=== PATIENT | female | born 1935 | race Caucasian/White ===

== ENCOUNTER 2018-10-26 17:27 | Inpatient (IN) ==
[2018-10-26] MEDS ORDERED: ONDANSETRON 4 MG/2 ML VIAL IV ONE (18:04)
--- NOTE | 2018-10-26 18:08 | Emergency Department Note ---
General Adult HPI - General Chief complaint: Weakness Stated complaint: N/v, weakness, congested Time Seen by Provider: 10/26/18 17:38 Source: patient, family Mode of arrival: wheelchair Limitations: no limitations - History of Present Illness HPI Narrative: 83-year-old female in ED with symptoms that started 1 week ago. Cough, general unwell feeling, temp of 100 on day 1 of illness, vomiting daily related to drinking water or eating small amounts such as piece of toast, 3-4 episodes of diarrhea, sinus congestion which is chronic, generalized weakness, decreased appetite. No headache, no chest pain, no change in bladder. Patient does have abdominal pain but it's more of a discomfort. Patient states she thinks she is probably lost 2 pounds this week. Patient does have history of stomach carcinoma with this screen placed when she had the surgery in her upper abdomen. Patient also states she has one kidney that only works about 25%. Onset (ago): week(s) (1) Severity: mild Severity scale (1-10): 4 Quality: aching, dull Consistency: constant Worsens with: movement Associated symptoms: Reports: cough, fever/chills, loss of appetite, malaise, nausea/vomiting, weakness (generalized). Denies: confusion, chest pain, diaphoresis, headaches, shortness of breath Treatments Prior to Arrival: none - Related Data Home Medications Medication Instructions Recorded Confirmed multivitamin tablet 1 tab PO QDAY tab 02/03/15 05/17/18 clopidogrel 75 mg tablet 75 mg PO QDAY 07/20/17 10/26/18 glucosamine HCl 1,500 mg tablet 1,500 mg PO QDAY 07/20/17 05/17/18 Vitamin D3 1,000 units PO QDAY 11/16/17 05/17/18 flaxseed oil 1,000 mg capsule 1,000 mg PO QDAY 11/16/17 05/17/18 warfarin 5 mg tablet See Rx Instructions PO QDAY 11/16/17 10/26/18 diltiazem CD 240 mg 240 mg PO QDAY 05/17/18 10/26/18 capsule,extended release 24 hr Previous Rx's Medication Instructions Recorded rosuvastatin 5 mg tablet 5 mg PO QDAY #60 tab 12/29/17 olmesartan 40 1 tab PO QDAY #60 tab 08/16/18 mg-hydrochlorothiazide 25 mg tablet Allergies Allergy/AdvReac Type Severity Reaction Status Date / Time ciprofloxacin [From Cipro] Allergy Unknown Other Verified 10/26/18 17:28 Cisapride [From Propulsid] Allergy Unknown Diarrhea Verified 10/26/18 17:28 ezetimibe [From Zetia] Allergy Unknown Diarrhea Verified 10/26/18 17:28 loratadine [From Claritin] Allergy Unknown Other Verified 10/26/18 17:28 MRI (stent) AdvReac Severe Other Uncoded 05/17/18 12:55 Review of Systems All systems ED: reviewed and negative except as stated. Past Medical History - Past Medical History [facility] Narrative: All Active Problems (Last Updated 05/17/18 @ 07:07 by Portia Black MD) CKD (chronic kidney disease) stage 3, GFR 30-59 ml/min (Chronic) Benign hypertension with CKD (chronic kidney disease) stage III (Chronic) Secondary hyperparathyroidism of renal origin (Chronic) History of stent insertion of renal artery (Chronic) Splenic mass (Chronic) Carotid stenosis (Acute) KARLA (renal artery stenosis) (Acute) Hypovitaminosis D (Chronic) Biceps muscle tear (Acute) Postgastric surgery syndrome (Chronic) Microscopic hematuria (Acute) Encounter for Health Maintenance Examination in Adult (Chronic) History of pelvic surgery (Acute) History of hysterectomy (Acute) History of esophagogastroduodenoscopy (Acute 12/18/08) History of colonoscopy (Acute 12/16/13) History of arthroplasty (Acute) Weight loss (Acute) UTI (urinary tract infection) (Acute) Urinary incontinence (Acute) Small bowel obstruction (Acute) Primary small intestine carcinoid tumor (Chronic) Raynauds syndrome (Acute) Positive RYLAND (antinuclear antibody) (Acute) Polymyalgia rheumatica (Acute) Osteoporosis screening (Acute) Nasal discharge (Acute) Mitral valve regurgitation (Chronic) Migraine with visual aura (Acute) Midepigastric pain (Acute) Meckel's diverticulum (Acute) Leg injury (Acute) Hypertension (Chronic) Hyperlipidemia (Chronic) Fibrocystic disease of breast (Acute) Fatigue (Acute) Esophagitis (Chronic) Struck by horse (Acute) Dysphagia (Acute) Degenerative arthritis (Chronic) Colon polyps (Acute 11/27/08) Back pain (Chronic) Atrial fibrillation (Chronic) Anticoagulant long-term use (Chronic 10/30/13) Past Surgical History History of pelvic surgery (Acute) History of esophagogastroduodenoscopy (Acute 12/18/08) History of colonoscopy (Acute 12/16/13) History of arthroplasty (Acute) Family History Sister Malignant neoplasm of breast Father Malignant neoplasm of colon Medical history: Reports: arthritis, atrial fibrillation, cancer, hyperlipidemia, hypertension, renal disease, valvular heart disease Psychiatric history: Reports: no psych history - Social History smoking status: Former smoker Physical Exam Limitations: no limitations General appearance: alert, in no apparent distress, malaise Head: atraumatic, normocephalic, normal inspection Eye: Present: normal appearance, PERRL. Absent: conjunctival injection ENT: mucous membranes moist, TM's normal bilaterally, normal external ear exam, nasal congestion External ear: Present: normal external inspection Nasal speculum exam: Bilateral: normal Mouth: Present: tongue normal. Absent: tongue elevation, tounge swelling Throat: Present: tonsillar erythema. Absent: tonsillomegaly, tonsillar exudate Neck: Present: normal inspection. Absent: tenderness, lymphadenopathy Chest: Present: normal inspection, symmetric chest wall rise. Absent: tenderness Respiratory: Present: normal lung sounds bilaterally. Absent: respiratory distress, rales/crackles, wheezes, stridor Cardiovascular: Present: irregular rhythm, systolic murmur, diastolic murmur Abdominal: Present: soft, tenderness, hypoactive bowel sounds. Absent: distention, guarding, rebound, rigidity Abdominal tenderness: Present: suprapubic Extremities: Present: normal inspection. Absent: pedal edema Back: Present: normal inspection. Absent: tenderness, CVA tenderness (R), CVA tenderness (L) Neurological: Present: alert, oriented X3, normal gait Psychiatric: Present: normal affect, normal mood. Absent: depressed, agitated, anxious, flat affect Skin: Present: warm, dry, intact, normal color. Absent: cool, diaphoretic Course Vital Signs Temperature 97.7 F 10/26/18 17:28 Pulse Rate 62 10/26/18 17:28 Respiratory Rate 16 10/26/18 17:28 Blood Pressure 165/63 10/26/18 17:28 Pulse Oximetry (%) 96 10/26/18 17:28 Temperature 97.7 F 10/26/18 17:28 Pulse Rate 58 L 10/26/18 20:01 Respiratory Rate 18 10/26/18 20:01 Blood Pressure 148/59 10/26/18 20:01 Pulse Oximetry (%) 93 10/26/18 20:01 Medical Decision Making - [facility] Narrative Medical decision making narrative: Patient originally started on lactated Ringer's 500 mL/h this was slowed to 125 mL an hour. Patient also receive 4 mg Zofran IV. Patient studies CBC 4.2, sodium 109, potassium 4.1, chloride 7.2, BUN 26, creatinine 1.1. Abdominal x-ray with nonspecific/nonobstructive bowel gas pattern and severe multi-level generative disc disease. Chest x-ray with cardiomegaly, no pulmonary edema, severe rotator cuff degeneration and bilateral shoulders along with nonacute healed left rib fractures. Urine negative for leukocytes. Discussed pt with who advised he would accept patient. - Lab Data Lab results reviewed: Yes I reviewed the patient's lab results. Result diagrams: 10/26/18 18:10 10/26/18 18:10 Lab Results 10/26/18 10/26/18 10/26/18 Range/Units 18:10 18:10 18:15 WBC 4.2 L (4.5-11.0) K/mcL RBC 4.76 (4.00-5.20) M/mcL Hgb 14.3 (12.0-15.0) g/dL Hct 43.0 (36.0-48.0) % POC Hct 46.0 (36.0-48.0) % MCV 90.5 (80.0-100.0) fL MCH 30.0 (26.0-34.0) pg MCHC 33.2 (31.0-36.0) g/dL RDW 12.9 (11.5-14.5) % Plt Count 146 (140-440) K/mcL MPV 9.2 (7.4-10.4) fL Gran % 63.6 (38.0-78.0) % Lymph % (Auto) 27.8 (15.5-49.0) % [place] % (Auto) 8.0 (1.0-12.0) % Eos % (Auto) 0.3 (0.0-7.0) % Baso % (Auto) 0.3 (0.0-2.0) % Gran # 2.7 (1.8-8.0) K/mcL Lymph # (Auto) 1.2 L (1.5-4.8) K/mcL [place] # (Auto) 0.3 (0.1-0.9) K/mcL Eos # (Auto) 0 (0.0-0.7) K/mcL Baso # (Auto) 0 (0.0-0.3) K/mcL PT 19.9 H (11.9-14.5) sec INR 1.7 H (0.9-1.1) APTT 44 H (20-37) sec POC Sodium 111 L* (133-145) mmol/L Sodium 109 L* (133-145) mmol/L POC Potassium 4.0 (3.3-5.1) mmol/L Potassium 4.1 (3.3-5.1) mmol/L POC Chloride 74 L (96-108) mmol/L Chloride 72 L (96-108) mmol/L Carbon Dioxide 25 (22-30) mmol/L POC Total CO2 26 (22-30) mmol/L Anion Gap 12.0 (8-16) POC BUN 26 H (8-23) mg/dl BUN 24 H (8-23) mg/dl Creatinine 1.1 (0.6-1.1) mg/dl POC Creatinine 1.3 H (0.6-1.1) mg/dl GFR Calculation 46 Glucose 105 (70-105) mg/dL POC Glucose 107 H (70-105) mg/dL Osmolality (280-300) mOSM/kg Uric Acid (2.5-8.0) mg/dL Calcium 9.4 (8.6-10.4) mg/dl POC WB Ioniz Calcium 1.10 L (1.16-1.32) mmol/L Total Bilirubin 0.5 (0.0-1.0) mg/dL AST 32 (0-37) U/l ALT 15 (0-40) U/l Alkaline Phosphatase 80 (39-117) U/L Total Protein 8.1 (5.9-8.4) gm/dL Albumin 4.5 (3.2-5.2) gm/dL Globulin 3.6 (2.2-3.7) gm/dL Albumin/Globulin Ratio 1.3 (1.0-2.3) Urine Osmolality (80-1000) mOsm/kg Ur Random Creatinine mg/dl Ur Random Sodium mmol/L Urine Urea Nitrogen mg/dL 10/26/18 10/26/18 10/26/18 Range/Units 19:49 19:49 19:50 WBC (4.5-11.0) K/mcL RBC (4.00-5.20) M/mcL Hgb (12.0-15.0) g/dL Hct (36.0-48.0) % POC Hct (36.0-48.0) % MCV (80.0-100.0) fL MCH (26.0-34.0) pg MCHC (31.0-36.0) g/dL RDW (11.5-14.5) % Plt Count (140-440) K/mcL MPV (7.4-10.4) fL Gran % (38.0-78.0) % Lymph % (Auto) (15.5-49.0) % [place] % (Auto) (1.0-12.0) % Eos % (Auto) (0.0-7.0) % Baso % (Auto) (0.0-2.0) % Gran # (1.8-8.0) K/mcL Lymph # (Auto) (1.5-4.8) K/mcL [place] # (Auto) (0.1-0.9) K/mcL Eos # (Auto) (0.0-0.7) K/mcL Baso # (Auto) (0.0-0.3) K/mcL PT (11.9-14.5) sec INR (0.9-1.1) APTT (20-37) sec POC Sodium (133-145) mmol/L Sodium (133-145) mmol/L POC Potassium (3.3-5.1) mmol/L Potassium (3.3-5.1) mmol/L POC Chloride (96-108) mmol/L Chloride (96-108) mmol/L Carbon Dioxide (22-30) mmol/L POC Total CO2 (22-30) mmol/L Anion Gap (8-16) POC BUN (8-23) mg/dl BUN (8-23) mg/dl Creatinine (0.6-1.1) mg/dl POC Creatinine (0.6-1.1) mg/dl GFR Calculation Glucose (70-105) mg/dL POC Glucose (70-105) mg/dL Osmolality 247 L (280-300) mOSM/kg Uric Acid 5.7 (2.5-8.0) mg/dL Calcium (8.6-10.4) mg/dl POC WB Ioniz Calcium (1.16-1.32) mmol/L Total Bilirubin (0.0-1.0) mg/dL AST (0-37) U/l ALT (0-40) U/l Alkaline Phosphatase (39-117) U/L Total Protein (5.9-8.4) gm/dL Albumin (3.2-5.2) gm/dL Globulin (2.2-3.7) gm/dL Albumin/Globulin Ratio (1.0-2.3) Urine Osmolality 417 (80-1000) mOsm/kg Ur Random Creatinine 68.9 mg/dl Ur Random Sodium 52 mmol/L Urine Urea Nitrogen 481 mg/dL - Radiology Data Radiology results reviewed: Yes I reviewed the patient's radiology results. Chest x-ray: IMPRESSION: 1. Cardiomegaly. No pulmonary edema or pulmonary congestion 2. Nonacute healed left rib fractures. Severe rotator cuff degeneration and degenerative disease in both shoulders Abdominal x-ray: IMPRESSION: 1. Nonspecific and nonobstructive bowel gas pattern 2. Severe multilevel degenerative disc disease Disposition Pt seen by DIRECTOR OF ARCHITECTURE/PA only: No (Chavez) Clinical Impression: Acute hyponatremia Disposition: Xfer As Inpt ([facility]) Condition: Fair Referrals: Abebe Cruz MD [Primary Care Provider] - Time of Disposition: 21:19
[2018-10-26] MEDS: LACTATED RINGERS 1,000 ML IV SCH (18:35)
--- NOTE | 2018-10-26 18:55 | XRay Report ---
CLINICAL INFORMATION: Nausea and vomiting TECHNIQUE: Supine and upright abdomen COMPARISON: CT of the abdomen and pelvis dated 05/05/2016 performed at [facility] FINDINGS: There is gas and fecal material within the colon. No dilated gas-filled small bowel. No evidence for mechanical small bowel obstruction. There is no pneumoperitoneum. No biliary or portal venous gas. No pneumatosis. There is a probable vascular stent left upper abdomen. This may be renal artery. There is severe multilevel degenerative disc disease throughout the lumbar spine. IMPRESSION: 1. Nonspecific and nonobstructive bowel gas pattern 2. Severe multilevel degenerative disc disease Interpreted and Authenticated by: Jarrod Martin 10/26/18
--- NOTE | 2018-10-26 18:57 | XRay Report ---
INDICATION: Weakness TECHNIQUE: PA and lateral upright chest x-ray COMPARISON: Previous chest x-ray dated 05/26/2017 FINDINGS:No acute or focal pulmonary parenchymal infiltrate. No pulmonary parenchymal mass. No pulmonary parenchymal abnormality. Is cardiomegaly. Pulmonary vascularity is normal. No pulmonary edema or pulmonary congestion. No evidence for pleural fluid. There are nonacute left-sided fractures. These are unchanged. There is rotator cuff degeneration both shoulders, right worse than left. No acute abnormality or interval change IMPRESSION: 1. Cardiomegaly. No pulmonary edema or pulmonary congestion 2. Nonacute healed left rib fractures. Severe rotator cuff degeneration and degenerative disease in both shoulders Interpreted and Authenticated by: Jarrod Martin 10/26/18
[2018-10-26 19:02] LABS: ALT/SGPT 15 U/l (0-40); Albumin 4.5 gm/dL (3.2-5.2); Albumin/Globulin Ratio 1.3 (1.0-2.3); Alkaline Phosphatase 80 U/L (39-117); Blood Urea Nitrogen 24 mg/dl (8-23)
[2018-10-26 19:03] LABS: Basophils # (Auto) 0 K/mcL (0.0-0.3); Basophils % (Auto) 0.3 % (0.0-2.0); Eosinophils # (Auto) 0 K/mcL (0.0-0.7); Eosinophils % (Auto) 0.3 % (0.0-7.0); Granulocytes % (Auto) 63.6 % (38.0-78.0); Lymphocytes # (Auto) 1.2 K/mcL (1.5-4.8); Lymphocytes % (Auto) 27.8 % (15.5-49.0); Mean Cell Volume 90.5 fL (80.0-100.0); Mean Corpuscular HGB Conc 33.2 g/dL (31.0-36.0); Monocytes # (Auto) 0.3 K/mcL (0.1-0.9); Platelet Count 146 K/mcL (140-440); RBC 4.76 M/mcL (4.00-5.20); Red Cell Distribution Width 12.9 % (11.5-14.5)
[2018-10-26 20:11] LABS: Uric Acid 5.7 mg/dL (2.5-8.0)
--- NOTE | 2018-10-26 20:21 | Internal Med History&Physical ---
Medical - H&P: [facility] Patient information: Note initiated : 10/26/18 at 8:17 pm Service Date, if different from initiated Date: [] Patient: Lionel Knapp 83 y/o F admitted on for N/v, weakness, congested. Chief Complaint: [] History of present illness: Ms. Knapp is a 83 year old F who presents to the ED with generalized weakness a weeks worth of occasional nausea vomiting and some occasional diarrhea as well as sinus congestion cough. Because of her severe weakness she came to the ED with her daughter. Reports about a week ago she developed cold symptoms feeling malaise and tired she had sinus congestion which is chronic but she had some continued cough with it. She says she was had a fever the first day. She has had occasional nausea vomiting the first 1 was mild when after water this morning. She had a little bit of diarrhea may be a small one once a day past couple days. She feels very weak. She denies any headache no current fevers or chills no chest pain. She feels her urination is the same as what it has been. Color is the same. She drinks 3-4 glasses of water a day. She has some abdominal discomfort describes more of a nausea. She was flu negative in the ED. She is on medication all losartan with hydrochlorothiazide in it. He says about a month ago she ran out over there is an issue with insurance and it was out into the ARB and the HCTZ. She was taking them separately. It was not until yesterday that she was able to get the combined pill form again to start taking. Review of Systems: Pertinent positives as above. Denies headache/fever/chills/chest paindyspnea. Remaining 10 point review of systems reviewed negative Medical - H&P: PMH Medical history: Medical History (Last Updated 05/17/18 @ 07:07 by Portia Black MD) CKD (chronic kidney disease) stage 3, GFR 30-59 ml/min (Chronic) Benign hypertension with CKD (chronic kidney disease) stage III (Chronic) Secondary hyperparathyroidism of renal origin (Chronic) Biceps muscle tear (Acute) Microscopic hematuria (Acute) Encounter for Health Maintenance Examination in Adult (Chronic) History of hysterectomy (Acute) Weight loss (Acute) UTI (urinary tract infection) (Acute) Urinary incontinence (Acute) Small bowel obstruction (Acute) Primary small intestine carcinoid tumor (Chronic) Raynauds syndrome (Acute) Positive RYLAND (antinuclear antibody) (Acute) Polymyalgia rheumatica (Acute) Osteoporosis screening (Acute) Nasal discharge (Acute) Mitral valve regurgitation (Chronic) Migraine with visual aura (Acute) Midepigastric pain (Acute) Meckel's diverticulum (Acute) Leg injury (Acute) Hypertension (Chronic) Hyperlipidemia (Chronic) Fibrocystic disease of breast (Acute) Fatigue (Acute) Esophagitis (Chronic) Struck by horse (Acute) Dysphagia (Acute) Degenerative arthritis (Chronic) Colon polyps (Acute 11/27/08) Back pain (Chronic) Atrial fibrillation (Chronic) Anticoagulant long-term use (Chronic 10/30/13) Past Surgical History History of pelvic surgery (Acute) History of esophagogastroduodenoscopy (Acute 12/18/08) History of colonoscopy (Acute 12/16/13) History of arthroplasty (Acute) Family History Sister Malignant neoplasm of breast Father Malignant neoplasm of colon Social History (Last Updated 05/17/18 @ 13:23 by Portia Black MD) Denies tobacco abuse She drinks alcohol occasionally Does not use a cane or walker Lives by herself Medical - H&P: Meds Home Medications Medication Instructions Recorded Confirmed Type multivitamin tablet 1 tab PO QDAY tab 02/03/15 05/17/18 History clopidogrel 75 mg tablet 75 mg PO QDAY 07/20/17 10/26/18 History glucosamine HCl 1,500 mg tablet 1,500 mg PO QDAY 07/20/17 05/17/18 History Vitamin D3 1,000 units PO QDAY 11/16/17 05/17/18 History flaxseed oil 1,000 mg capsule 1,000 mg PO QDAY 11/16/17 05/17/18 History warfarin 5 mg tablet See Rx Instructions PO QDAY 11/16/17 10/26/18 History rosuvastatin 5 mg tablet 5 mg PO QDAY #60 tab 12/29/17 10/26/18 Rx olmesartan 40 1 tab PO QDAY #60 tab 03/15/18 10/26/18 Rx mg-hydrochlorothiazide 25 mg tablet diltiazem CD 240 mg 240 mg PO QDAY 05/17/18 10/26/18 History capsule,extended release 24 hr Allergies Allergy/AdvReac Type Severity Reaction Status Date / Time ciprofloxacin [From Cipro] Allergy Unknown Other Verified 10/26/18 17:28 Cisapride [From Propulsid] Allergy Unknown Diarrhea Verified 10/26/18 17:28 ezetimibe [From Zetia] Allergy Unknown Diarrhea Verified 10/26/18 17:28 loratadine [From Claritin] Allergy Unknown Other Verified 10/26/18 17:28 MRI (stent) AdvReac Severe Other Uncoded 05/17/18 12:55 Medical - H&P: Exam - Constitutional Vitals: Temp Pulse Resp BP Pulse Ox 97.7 F 58 L 18 148/59 93 10/26/18 17:28 10/26/18 20:01 10/26/18 20:01 10/26/18 20:01 10/26/18 20:01 Exam: General: Awake, No acute Distress Eyes/N/T: EOMI, PEERL, DMM Head/Neck: neck supple, normocephalic atraumatic CV: Irregular, no murmurs, normal s1/s2 Pulm: No wheezing, mildly coarse with mild rhonchi abd: soft, nontender, +BS x4 Ext: no clubbing/cyanosis/edema Neuro: Awake but appears lethargic, no focal deficits, moves all extremities, CN 2-12 grossly intact, symmetrical strength b/l upper/lower, sensations intact b/l upper/lower Skin: warm/dry, poor skin turgor Medical - H&P: Reslt - Labs CBC & Chem 7: 10/26/18 18:10 10/26/18 18:10 Labs: Short CBC 10/26/18 Range/Units 18:10 WBC 4.2 L (4.5-11.0) K/mcL Hgb 14.3 (12.0-15.0) g/dL Hct 43.0 (36.0-48.0) % Plt Count 146 (140-440) K/mcL BMP 10/26/18 18:10 Sodium 109 L* Potassium 4.1 Chloride 72 L Carbon Dioxide 25 BUN 24 H Creatinine 1.1 Glucose 105 Calcium 9.4 Liver Function 10/26/18 Range/Units 18:10 Total Bilirubin 0.5 (0.0-1.0) mg/dL AST 32 (0-37) U/l ALT 15 (0-40) U/l Alkaline Phosphatase 80 (39-117) U/L Albumin 4.5 (3.2-5.2) gm/dL - Impressions Chest x-ray and abdominal x-ray no acute pathology Medical - H&P: A/P - Narrative A/P Narrative: A: *Hyponatremia, likely chronic: *N/v/ generalized malaise: 2/2 above -Mild diarrhea *Volume depletion: *Chronic atrial fibrillation: On warfarin diltiazem. Follows with Dr. Gray *h/o CEA and KARLA: On Plavix, has followed with Dr. Pack *CKD III: Follows with Dr. Laughlin *HTN: * P: -start with NS IVF's -pending urine studies and TSH, osmol -serial Na -Antiemetics, -Stool studies -Continue home diltiazem/Plavix/statin -Hold ARB for now, d/c HCTZ -- -PT/OT -ppx: Warfarin per pharmacy
[2018-10-26 20:44] LABS: Osmolality,Urine 417 mOsm/kg (80-1000)
[2018-10-26] MEDS ORDERED: diphenhydrAMINE 50 MG/ML VIAL IV PRN ×2 (20:45→21:40)
[2018-10-26] MEDS ORDERED: IPRATROPIUM/ALBUTEROL 3 ML AMPUL.NEB NEB PRN (21:40)
[2018-10-26] MEDS ORDERED: ACETAMINOPHEN 325 MG TABLET PO PRN (21:40)
[2018-10-26] MEDS ORDERED: POTASSIUM CHLORIDE 40 MEQ in DEXTROSE 5% IN WATER 500 ML IV PRN (21:40)
[2018-10-26] MEDS ORDERED: PROMETHAZINE 25 MG TABLET PO PRN (21:40)
[2018-10-26] MEDS ORDERED: POLYETHYLENE GLYCOL 3350 17 GM PACKET PO PRN (21:40)
[2018-10-26] MEDS ORDERED: MAGNESIUM SULFATE 2 GM/50 ML BAG IV PRN (21:40)
[2018-10-26] MEDS ORDERED: POTASSIUM CHLORIDE 20 MEQ TABLET PO PRN ×2 (21:40)
[2018-10-26] MEDS ORDERED: ONDANSETRON 4 MG/2 ML VIAL IV PRN (21:40)
[2018-10-26] MEDS ORDERED: cloNIDine HCL 0.1 MG TABLET PO PRN (21:40)
[2018-10-26] MEDS ORDERED: PROCHLORPERAZINE 10 MG/2 ML VIAL IV PRN (21:40)
[2018-10-26 21:43] LABS: Blood Urea Nitrogen 22 mg/dl (8-23)
[2018-10-26] MEDS ORDERED: SODIUM CHLORIDE 1 GM TABLET PO ONE (21:43)
[2018-10-26 22:33] LABS: Appearance,Urine CLEAR; Bacteria,Urine 0 /hpf (0); Bilirubin,Urine NEG (NEG); Color,Urine YELLOW; Glucose,Urine (UA) NEGATIVE (NEG); Leukocyte Esterase,Urine NEG /uL (NEG); Mucus,Urine FEW /hpf (0); Protein,Urine 30 mg/dL (NEG); Specific Gravity,Urine 1.013 (1.000-1.035); Urine Blood NEG mg/dL (<0.03); Urine RBC < 1 /hpf (0-1); Urine Squamous Epithelial Cell 2 /hpf (0-4); Urine WBC 0 /hpf (0-4); Urobilinogen,Urine NEG (NEG)
[2018-10-26] MEDS: FAMOTIDINE 20 MG TABLET PO SCH (22:34)
[2018-10-26] MEDS: 0.9 % SODIUM CHLORIDE 10 ML SYRINGE IV SCH (22:36)
[2018-10-26] MEDS: 0.9 % SODIUM CHLORIDE 1,000 ML IV SCH (23:06)
[2018-10-26 23:51] LABS: Blood Urea Nitrogen 21 mg/dl (8-23)
[2018-10-27 00:28] LABS: Blood Urea Nitrogen 19 mg/dl (8-23)
[2018-10-27] MEDS ORDERED: SODIUM CHLORIDE 1 GM TABLET PO ONE (00:30)
[2018-10-27 05:35] LABS: Basophils # (Auto) 0 K/mcL (0.0-0.3); Basophils % (Auto) 0.4 % (0.0-2.0); Eosinophils # (Auto) 0 K/mcL (0.0-0.7); Eosinophils % (Auto) 0.9 % (0.0-7.0); Granulocytes % (Auto) 46.4 % (38.0-78.0); Lymphocytes # (Auto) 1.5 K/mcL (1.5-4.8); Lymphocytes % (Auto) 41.8 % (15.5-49.0); Mean Cell Volume 90.4 fL (80.0-100.0); Mean Corpuscular HGB Conc 33.3 g/dL (31.0-36.0); Monocytes # (Auto) 0.4 K/mcL (0.1-0.9); Monocytes % (Auto) 10.5 % (1.0-12.0); Platelet Count 121 K/mcL (140-440); RBC 4.06 M/mcL (4.00-5.20); Red Cell Distribution Width 12.5 % (11.5-14.5)
[2018-10-27] MEDS: 0.9 % SODIUM CHLORIDE 10 ML SYRINGE IV SCH ×3 (06:04→22:01)
[2018-10-27 06:14] LABS: Cortisol,AM 17.1 ug/dl (6.2-19.4)
[2018-10-27 06:23] LABS: ALT/SGPT 13 U/l (0-40); Albumin 3.7 gm/dL (3.2-5.2); Albumin/Globulin Ratio 1.4 (1.0-2.3); Alkaline Phosphatase 64 U/L (39-117); Bilirubin,Direct < 0.2 mg/dL (0.0-0.3); Blood Urea Nitrogen 17 mg/dl (8-23); Gamma Glutamyl Transpeptidase 18 U/L (5-36)
--- NOTE | 2018-10-27 07:31 | Internal Med Progress Note ---
Medical - PN: Subj Patient information: Note initiated : 10/27/18 at 7:24 am Service Date, if different from initiated Date: [] Patient: Lionel Knapp 83 y/o F admitted on 10/26/18 for N/v, weakness, congested. Chief Complaint: [] Interval history: Ms. Knapp is a 83 year old F who presents to the ED with generalized weakness a weeks worth of occasional nausea vomiting and some occasional diarrhea as well as sinus congestion cough. Because of her severe weakness she came to the ED with her daughter. Reports about a week ago she developed cold symptoms feeling malaise and tired she had sinus congestion which is chronic but she had some continued cough with it. She says she was had a fever the first day. She has had occasional nausea vomiting the first 1 was mild when after water this morning. She had a little bit of diarrhea may be a small one once a day past couple days. She feels very weak. She denies any headache no current fevers or chills no chest pain. She feels her urination is the same as what it has been. Color is the same. She drinks 3-4 glasses of water a day. She has some abdominal discomfort describes more of a nausea. She was flu negative in the ED. She is on medication all losartan with hydrochlorothiazide in it. He says about a month ago she ran out over there is an issue with insurance and it was out into the ARB and the HCTZ. She was taking them separately. It was not until yesterday that she was able to get the combined pill form again to start taking. 10/27 No overnight events. Monitoring sodium closely. She had some nausea this morning but no vomiting. She feels a little bit stronger this morning. She has a chronic sinus drainage with associated cough. Review of Systems: denies headache/fever/chills/vomiting/chest or abdominal pain/diarrhea. Otherwise see above. - Constitutional Vitals: Vital Signs Temp Pulse Resp BP Pulse Ox 97.7 F 38 L 14 124/60 94 10/27/18 04:01 10/27/18 07:05 10/27/18 07:05 10/27/18 07:02 10/27/18 07:05 Period Temp Pulse Resp BP Sys/Mcintosh Pulse Ox Last 24 Hr 97.7 F-98.8 F 27-67 12-23 124-171/50-92 92-96 Intake and Output 10/26/18 10/27/18 10/27/18 21:59 05:59 13:59 Intake Total 1000 140 Output Total 200 450 200 Balance 800 -310 -200 Weight 56.699 kg Intake & Output: Intake & Output 10/26/18 10/27/18 10/27/18 21:59 05:59 13:59 Intake Total 1000 140 Output Total 200 450 200 Balance 800 -310 -200 Weight 56.699 kg Intake: IV 1000 140 Sodium Chloride 0.9% 1,000 ml @ 140 100 mls/hr IV .Q10H [facility] Rx#: [id number] Lactated Ringers 1,000 ml @ 500 1000 mls/hr IV .Q2H [facility] Rx#: [id number] Output: Void Amount 200 450 200 Other: Urine Appearance Clear Clear Urine Color Pale Pale Exam: General: Awake, No acute Distress Eyes/N/T: EOMI, Head/Neck: neck supple, CV: Irregular, no murmurs, Pulm: No wheezing, mild right rhonchi that clears with cough abd: soft, nontender, +BS x4 Ext: no clubbing/cyanosis/edema Neuro: Awake but appears lethargic, no focal deficits, moves all extremities, Skin: warm/dry, poor skin turgor Medical - PN: Obj Da - Labs CBC & Chem 7: 10/27/18 03:30 10/27/18 07:39 Labs: Abnormal Lab Results 10/27/18 10/27/18 10/26/18 03:30 03:30 Unknown WBC 3.7 L Plt Count 121 L Gran # 1.7 L Lymph # (Auto) PT INR APTT POC Sodium Sodium 114 L* POC Chloride Chloride 78 L POC BUN BUN POC Creatinine POC Glucose Osmolality POC WB Ioniz Calcium Phosphorus 2.1 L Urine Protein 30 A 10/26/18 10/26/18 10/26/18 23:04 22:08 21:01 WBC Plt Count Gran # Lymph # (Auto) PT INR APTT POC Sodium Sodium 109 L* 110 L* 109 L* POC Chloride Chloride 74 L 75 L 74 L POC BUN BUN POC Creatinine POC Glucose Osmolality POC WB Ioniz Calcium Phosphorus Urine Protein 03/29/19 03/29/19 03/29/19 19:49 18:15 18:10 WBC Plt Count Gran # Lymph # (Auto) PT 19.9 H INR 1.7 H APTT 44 H POC Sodium 111 L* Sodium 109 L* POC Chloride 74 L Chloride 72 L POC BUN 26 H BUN 24 H POC Creatinine 1.3 H POC Glucose 107 H Osmolality 247 L POC WB Ioniz Calcium 1.10 L Phosphorus Urine Protein 10/26/18 18:10 WBC 4.2 L Plt Count Gran # Lymph # (Auto) 1.2 L PT INR APTT POC Sodium Sodium POC Chloride Chloride POC BUN BUN POC Creatinine POC Glucose Osmolality POC WB Ioniz Calcium Phosphorus Urine Protein Meds: Medications Acetaminophen (Tylenol) 650 mg PO Q6HP PRN PRN Reason: PAIN/FEVER > 101 Albuterol/Ipratropium (Duoneb) 3 ml NEB Q4HP PRN PRN Reason: Shortness Of Breath Atorvastatin Calcium (Lipitor) 10 mg PO HS [facility] Clonidine HCl (Catapres) 0.1 mg PO QID PRN PRN Reason: sbp>150 Clopidogrel Bisulfate (Plavix) 75 mg PO QDAY [facility] Diltiazem HCl (Cardizem Cd) 240 mg PO QDAY [facility] Diphenhydramine HCl (Benadryl) 25 mg IV Q4-6HP PRN PRN Reason: Allergic Symptoms or NAUSEA Enoxaparin Sodium (Lovenox) 40 mg SQ DAILY ONE Stop: 10/27/18 20:36 Famotidine (Pepcid) 20 mg PO BID [facility] Last Admin: 10/26/18 22:34 Dose: 20 mg Documented by: Potassium Chloride 40 meq/ (Dextrose) 520 mls @ 130 mls/hr IV ONCE PRN PRN Reason: Potassium < 3 Magnesium Sulfate (Magnesium Sulfate) 2 gm in 50 mls @ 50 mls/hr IV ONCE PRN PRN Reason: Magnesium </= 1.6 Sodium Chloride (Sodium Chloride 0.9%) 1,000 mls @ 100 mls/hr IV .Q10H [facility] Last Infusion: 10/27/18 00:30 Dose: 0 mls/hr Documented by: Ondansetron HCl (Zofran) 4 mg IV Q4HP PRN PRN Reason: Nausea And Vomiting Polyethylene Glycol (Miralax) 17 gm PO DAILYP PRN PRN Reason: Constipation Potassium Chloride (Kdur) 40 meq PO ONCE PRN PRN Reason: Potssium is 3-3.5 Potassium Chloride (Kdur) 40 meq PO ONCE PRN PRN Reason: Potassium < 3 Prochlorperazine (Compazine) 10 mg IV Q6HP PRN PRN Reason: Nausea And Vomiting Promethazine HCl (Phenergan) 0 mg PO Q6HP PRN PRN Reason: Nausea And Vomiting Sodium Chloride (Saline Flush) 10 ml IV Q8 [facility] Last Admin: 10/27/18 06:04 Dose: 10 ml Documented by: Warfarin Sodium (Coumadin) 0 mg PO QDAY [facility] Medical - PN: A/P - Time Spent With Patient Total time spent is greater than 50% in coordination of care (as documented) at patient's floor/unit and/or counseling patient: - Narrative A/P Narrative: A: *Hyponatremia, 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 Follows with Dr. Gray *h/o CEA and KARLA: On Plavix, has followed with Dr. Pack *CKD III: Follows with Dr. Laughlin *HTN: * P: -fluid restrict, prn salt tabs -serial Na -Antiemetics, -Stool studies if diarrhea returns -Continue home diltiazem/Plavix/statin -Hold ARB for now, d/c HCTZ - -PT/OT -ppx: Warfarin per pharmacy DNR
--- NOTE | 2018-10-27 08:09 | Emergency Department Note ---
ED Note Addendum Note Addendum: I reviewed this case of Marjan CABRAL. I agree with her evaluation management documentation. Noted patient was admitted to the hospitalist; I participated and agree with this decision
[2018-10-27 08:38] LABS: Blood Urea Nitrogen 16 mg/dl (8-23)
--- NOTE | 2018-10-27 08:38 | XRay Report ---
INDICATION: Cough TECHNIQUE: AP chest x-ray,portable semiupright COMPARISON: Previous examinations dated 10/26/2018, 05/26/2017 FINDINGS:There is cardiomegaly. This is essentially unchanged. Pulmonary vascularity is unremarkable. No pulmonary edema or pulmonary congestion. No focal pulmonary parenchymal infiltrate or mass. Amelia and mediastinum are negative. No evidence for pleural effusion. There is rotator cuff degeneration bilaterally with superior decentering of both humeral heads IMPRESSION: 1. Cardiomegaly, unchanged 2. No parenchymal infiltrates. No evidence for congestive heart failure Interpreted and Authenticated by: Jarrod Martin 10/27/18
[2018-10-27] MEDS ORDERED: DILTIAZEM 240 MG CAP.XL.24H PO SCH (09:00)
[2018-10-27] MEDS ORDERED: WARFARIN 5 MG TABLET PO SCH (09:00)
[2018-10-27] MEDS ORDERED: CLOPIDOGREL 75 MG TABLET PO SCH (09:00)
[2018-10-27] MEDS ORDERED: DEXTROSE 5% IV SCH ×2 (09:15→10:34)
[2018-10-27] MEDS ORDERED: WATER IV SCH ×2 (09:15→10:34)
[2018-10-27] MEDS: 0.9 % SODIUM CHLORIDE 1,000 ML IV SCH (09:42)
[2018-10-27] MEDS: FAMOTIDINE 20 MG TABLET PO SCH ×2 (09:44→20:11)
[2018-10-27] MEDS ORDERED: PROMETHAZINE 25 MG TABLET PO PRN (10:34)
[2018-10-27] MEDS ORDERED: diphenhydrAMINE 50 MG/ML VIAL IV PRN (10:34)
[2018-10-27] MEDS ORDERED: PROCHLORPERAZINE 10 MG/2 ML VIAL IV PRN (10:34)
[2018-10-27] MEDS ORDERED: POLYETHYLENE GLYCOL 3350 17 GM PACKET PO PRN (10:34)
[2018-10-27] MEDS ORDERED: MAGNESIUM SULFATE 2 GM/50 ML BAG IV PRN (10:34)
[2018-10-27] MEDS ORDERED: POTASSIUM CHLORIDE 40 MEQ in DEXTROSE 5% IN WATER 500 ML IV PRN (10:34)
[2018-10-27] MEDS ORDERED: IPRATROPIUM/ALBUTEROL 3 ML AMPUL.NEB NEB PRN (10:34)
[2018-10-27] MEDS ORDERED: 0.9 % SODIUM CHLORIDE 1,000 ML IV SCH (10:34)
[2018-10-27] MEDS ORDERED: POTASSIUM CHLORIDE 20 MEQ TABLET PO PRN ×2 (10:34)
[2018-10-27] MEDS ORDERED: ONDANSETRON 4 MG/2 ML VIAL IV PRN (10:34)
[2018-10-27] MEDS ORDERED: ACETAMINOPHEN 325 MG TABLET PO PRN (10:34)
[2018-10-27] MEDS: ENOXAPARIN 60 MG/0.6 ML SYRINGE SQ SCH ×2 (11:39→20:11)
[2018-10-27 12:46] LABS: Blood Urea Nitrogen 16 mg/dl (8-23)
[2018-10-27] MEDS ORDERED: WARFARIN 7.5 MG TABLET PO ONE (14:00)
[2018-10-27] MEDS ORDERED: SODIUM CHLORIDE 1 GM TABLET PO SCH (15:00)
[2018-10-27 16:30] LABS: Blood Urea Nitrogen 21 mg/dl (8-23)
--- NOTE | 2018-10-27 17:09 | Event Note ---
Patient sodium level is 111, at 1548, was 109 at admission. Will start the patient on hypertonic saline at 20cc/hr, and ddavp 1mcg q6hrs, will titrate dose of saline and ddavp as per response, recheck lab in 3 hrs
[2018-10-27] MEDS ORDERED: SODIUM CHLORIDE 3 % 500 ML IV SCH ×2 (17:15→22:27)
[2018-10-27] MEDS: OSELTAMIVIR PHOSPHATE 30 MG CAPSULE PO SCH ×2 (18:02→20:12)
[2018-10-27] MEDS: LACTATED RINGERS 1,000 ML IV SCH (19:20)
[2018-10-27] MEDS: ATORVASTATIN 20 MG TABLET PO SCH (20:11)
[2018-10-27] MEDS: DESMOPRESSIN ACETATE 1 MCG in 0.9 % SODIUM CHLORIDE 50 ML IV SCH (20:30)
[2018-10-27] MEDS ORDERED: ENOXAPARIN 40 MG/0.4 ML SYRINGE SQ ONE ×2 (20:35)
[2018-10-27] MEDS ORDERED: ATORVASTATIN 20 MG TABLET PO SCH (21:00)
[2018-10-27 22:12] LABS: Blood Urea Nitrogen 25 mg/dl (8-23)
[2018-10-28] MEDS: DESMOPRESSIN ACETATE 1 MCG in 0.9 % SODIUM CHLORIDE 50 ML IV SCH ×4 (00:10→21:49)
[2018-10-28 02:05] LABS: Blood Urea Nitrogen 22 mg/dl (8-23)
[2018-10-28] MEDS: cloNIDine HCL 0.1 MG TABLET PO PRN ×2 (05:22→15:58)
[2018-10-28] MEDS: 0.9 % SODIUM CHLORIDE 10 ML SYRINGE IV SCH ×3 (05:23→22:09)
[2018-10-28 05:40] LABS: Basophils # (Auto) 0 K/mcL (0.0-0.3); Basophils % (Auto) 0.5 % (0.0-2.0); Eosinophils # (Auto) 0.1 K/mcL (0.0-0.7); Granulocytes % (Auto) 53.2 % (38.0-78.0); Lymphocytes # (Auto) 2.2 K/mcL (1.5-4.8); Lymphocytes % (Auto) 37.6 % (15.5-49.0); Mean Cell Volume 90.9 fL (80.0-100.0); Mean Corpuscular HGB Conc 33.2 g/dL (31.0-36.0); Monocytes # (Auto) 0.4 K/mcL (0.1-0.9); Monocytes % (Auto) 7.7 % (1.0-12.0); Platelet Count 123 K/mcL (140-440); RBC 4.38 M/mcL (4.00-5.20); Red Cell Distribution Width 13.2 % (11.5-14.5)
[2018-10-28 06:09] LABS: ALT/SGPT 13 U/l (0-40); Albumin 3.9 gm/dL (3.2-5.2); Albumin/Globulin Ratio 1.3 (1.0-2.3); Alkaline Phosphatase 68 U/L (39-117); Bilirubin,Direct < 0.2 mg/dL (0.0-0.3); Blood Urea Nitrogen 20 mg/dl (8-23); Gamma Glutamyl Transpeptidase 18 U/L (5-36); Uric Acid 4.5 mg/dL (2.5-8.0)
[2018-10-28] MEDS ORDERED: DILTIAZEM 240 MG CAP.XL.24H PO SCH (09:00)
[2018-10-28] MEDS: FAMOTIDINE 20 MG TABLET PO SCH ×2 (09:53→21:48)
[2018-10-28] MEDS: CLOPIDOGREL 75 MG TABLET PO SCH (09:53)
[2018-10-28] MEDS: OSELTAMIVIR PHOSPHATE 30 MG CAPSULE PO SCH ×2 (09:56→21:47)
[2018-10-28] MEDS: ENOXAPARIN 60 MG/0.6 ML SYRINGE SQ SCH ×2 (09:56→21:47)
--- NOTE | 2018-10-28 10:03 | Internal Med Progress Note ---
Medical - PN: Subj Patient information: Note initiated : 10/28/18 at 10:01 am Service Date, if different from initiated Date: [] Patient: Lionel Knapp a 83 y/o F admitted on 10/26/18 for N/v, weakness, congested. Chief Complaint: [] Interval history: Ms. Knapp is a 83 year old F who presents to the ED with generalized weakness a weeks worth of occasional nausea vomiting and some occasional diarrhea as well as sinus congestion cough. Because of her severe weakness she came to the ED with her daughter. Reports about a week ago she developed cold symptoms feeling malaise and tired she had sinus congestion which is chronic but she had some continued cough with it. She says she was had a fever the first day. She has had occasional nausea vomiting the first 1 was mild when after water this morning. She had a little bit of diarrhea may be a small one once a day past couple days. She feels very weak. She denies any headache no current fevers or chills no chest pain. She feels her urination is the same as what it has been. Color is the same. She drinks 3-4 glasses of water a day. She has some abdominal discomfort describes more of a nausea. She was flu negative in the ED. She is on medication all losartan with hydrochlorothiazide in it. He says about a month ago she ran out over there is an issue with insurance and it was out into the ARB and the HCTZ. She was taking them separately. It was not until yesterday that she was able to get the combined pill form again to start taking. 10/27 No overnight events. Monitoring sodium closely. She had some nausea this morning but no vomiting. She feels a little bit stronger this morning. She has a chronic sinus drainage with associated cough. 10/28 patient seen examined, no acute issues,no more diarrhea, Pt able to tolerate po diet well tested positive for flu, on tamiflu Her sodium this AM is 119, rising appropriately, was started on ddavp and hypertonic saline yesterday. Pertinent ROS: Denies headache, dizziness Denies chest pain, palpitations Denies cough or shortness of breath Denies abdominal pain, nausea or vomiting. - Constitutional Vitals: Vital Signs Temp Pulse Resp BP Pulse Ox 99.7 F H 57 L 16 133/57 94 10/28/18 08:30 10/28/18 04:01 10/28/18 08:30 10/28/18 08:30 10/28/18 08:30 Period Temp Pulse Resp BP Sys/Mcintosh Pulse Ox Last 24 Hr 97.2 F-99.7 F 50-59 12-19 106-179/46-112 93-98 Intake and Output 10/27/18 10/28/18 10/28/18 21:59 05:59 13:59 Intake Total 665 246.75 118 Output Total 300 750 500 Balance 365 -503.25 -382 Weight 125 lb 11.2 oz Intake & Output: Intake & Output 10/27/18 10/28/18 10/28/18 21:59 05:59 13:59 Intake Total 665 246.75 118 Output Total 300 750 500 Balance 365 -503.25 -382 Weight 125 lb 11.2 oz Intake: IV 375 246.75 118 Ddavp 1 Mcg In Sodium Chloride 150.75 0.9% 50 ml @ 200 mls/hr IV Q6 [facility] Rx#:[id number] Sodium Chloride 3% 500 ml @ 20 96 mls/hr IV ONCE [facility] Rx#: [id number] Oral 290 Output: Void Amount 300 750 500 Other: Meal Dinner Percent of Meal Consumed 100% Feeding Ability Independent Urine Appearance Clear Urine Color Bright Yellow Urine Odor Normal # Voids 1 Exam: Constitutional; Afebrile, cooperative, alert, not in distress. Eyes- No icterus, , No periorbital swelling Ears- Ext ear normal, hearing normal to conversation. Neck- Midline trachea, supple Respiratory system: Air Entry equal on both sides, No crackles or wheezing, no rhonchi. CVS- Rate rhythm regular, S1,S2 heard, no gallop, no rub. Abdomen- Soft nontender abdomen, no organomegaly, no tenderness, no guarding or rigidity, [employer]- AOOx3, moving all extremities, no gross focal deficit noted. Medical - PN: Obj Da - Labs CBC & Chem 7: 10/28/18 03:52 10/28/18 03:52 Labs: Abnormal Lab Results 10/28/18 10/28/18 10/28/18 03:52 03:52 03:52 WBC Plt Count 123 L Gran # Lymph # (Auto) PT 21.8 H INR 1.9 H APTT POC Sodium Sodium 119 L* POC Chloride Chloride 84 L POC BUN BUN POC Creatinine Glucose 69 L POC Glucose Osmolality Calcium POC WB Ioniz Calcium Phosphorus 1.9 L Urine Protein 10/28/18 10/27/18 10/27/18 01:20 21:10 15:48 WBC Plt Count Gran # Lymph # (Auto) PT INR APTT POC Sodium Sodium 116 L* 116 L* 111 L* POC Chloride Chloride 84 L 80 L 77 L POC BUN BUN 25 H POC Creatinine Glucose POC Glucose Osmolality Calcium 8.5 L POC WB Ioniz Calcium Phosphorus Urine Protein 10/27/18 10/27/18 10/27/18 11:55 07:46 07:39 WBC Plt Count Gran # Lymph # (Auto) PT 18.6 H INR 1.6 H APTT POC Sodium Sodium 115 L* 116 L* POC Chloride Chloride 76 L 77 L POC BUN BUN POC Creatinine Glucose POC Glucose Osmolality Calcium POC WB Ioniz Calcium Phosphorus Urine Protein 10/27/18 10/27/18 10/26/18 03:30 03:30 Unknown WBC 3.7 L Plt Count 121 L Gran # 1.7 L Lymph # (Auto) PT INR APTT POC Sodium Sodium 114 L* POC Chloride Chloride 78 L POC BUN BUN POC Creatinine Glucose POC Glucose Osmolality Calcium POC WB Ioniz Calcium Phosphorus 2.1 L Urine Protein 30 A 10/26/18 10/26/18 10/26/18 23:04 22:08 21:01 WBC Plt Count Gran # Lymph # (Auto) PT INR APTT POC Sodium Sodium 109 L* 110 L* 109 L* POC Chloride Chloride 74 L 75 L 74 L POC BUN BUN POC Creatinine Glucose POC Glucose Osmolality Calcium POC WB Ioniz Calcium Phosphorus Urine Protein 10/26/18 10/26/18 10/26/18 19:49 18:15 18:10 WBC Plt Count Gran # Lymph # (Auto) PT 19.9 H INR 1.7 H APTT 44 H POC Sodium 111 L* Sodium 109 L* POC Chloride 74 L Chloride 72 L POC BUN 26 H BUN 24 H POC Creatinine 1.3 H Glucose POC Glucose 107 H Osmolality 247 L Calcium POC WB Ioniz Calcium 1.10 L Phosphorus Urine Protein 10/26/18 18:10 WBC 4.2 L Plt Count Gran # Lymph # (Auto) 1.2 L PT INR APTT POC Sodium Sodium POC Chloride Chloride POC BUN BUN POC Creatinine Glucose POC Glucose Osmolality Calcium POC WB Ioniz Calcium Phosphorus Urine Protein Meds: Medications Acetaminophen (Tylenol) 650 mg PO Q6HP PRN PRN Reason: PAIN/FEVER > 101 Albuterol/Ipratropium (Duoneb) 3 ml NEB Q4HP PRN PRN Reason: Shortness Of Breath Atorvastatin Calcium (Lipitor) 10 mg PO HS [facility] Last Admin: 10/27/18 20:11 Dose: 10 mg Documented by: Clonidine HCl (Catapres) 0.1 mg PO QID PRN PRN Reason: sbp>150 Last Admin: 10/28/18 05:22 Dose: 0.1 mg Documented by: Clopidogrel Bisulfate (Plavix) 75 mg PO QDAY [facility] Last Admin: 10/28/18 09:53 Dose: 75 mg Documented by: Diltiazem HCl (Cardizem Cd) 240 mg PO QDAY [facility] Last Admin: 10/28/18 09:56 Dose: Not Given Documented by: Diphenhydramine HCl (Benadryl) 25 mg IV Q4-6HP PRN PRN Reason: Allergic Symptoms or NAUSEA Last Admin: 10/27/18 20:12 Dose: 25 mg Documented by: Enoxaparin Sodium (Lovenox) 50 mg SQ BID [facility] Last Admin: 10/28/18 09:56 Dose: 50 mg Documented by: Famotidine (Pepcid) 20 mg PO BID [facility] Last Admin: 10/28/18 09:53 Dose: 20 mg Documented by: Potassium Chloride 40 meq/ (Dextrose) 520 mls @ 130 mls/hr IV ONCE PRN PRN Reason: Potassium < 3 Magnesium Sulfate (Magnesium Sulfate) 2 gm in 50 mls @ 50 mls/hr IV ONCE PRN PRN Reason: Magnesium </= 1.6 Sodium Chloride (Sodium Chloride 3%) 500 mls @ 15 mls/hr IV ONCE [facility] Stop: 10/28/18 17:14 Last Admin: 10/27/18 22:39 Dose: Not Given Documented by: Desmopressin Acetate 1 mcg/ (Sodium Chloride) 50.25 mls @ 200 mls/hr IV Q8 [facility] Ondansetron HCl (Zofran) 4 mg IV Q4HP PRN PRN Reason: Nausea And Vomiting Oseltamivir Phosphate (Oseltamivir Phosphate) 30 mg PO BID [facility] Last Admin: 10/28/18 09:56 Dose: 30 mg Documented by: Polyethylene Glycol (Miralax) 17 gm PO DAILYP PRN PRN Reason: Constipation Potassium Chloride (Kdur) 40 meq PO ONCE PRN PRN Reason: Potssium is 3-3.5 Potassium Chloride (Kdur) 40 meq PO ONCE PRN PRN Reason: Potassium < 3 Prochlorperazine (Compazine) 10 mg IV Q6HP PRN PRN Reason: Nausea And Vomiting Promethazine HCl (Phenergan) 0 mg PO Q6HP PRN PRN Reason: Nausea And Vomiting Sodium Chloride (Saline Flush) 10 ml IV Q8 [facility] Last Admin: 10/28/18 05:23 Dose: 10 ml Documented by: Warfarin Sodium (Coumadin Per Pharmacy) 1 order PO UD [facility] Medical - PN: A/P - Time Spent With Patient Total time spent is greater than 50% in coordination of care (as documented) at patient's floor/unit and/or counseling patient: - Narrative A/P Narrative: A: *Hyponatremia, 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 Follows with Dr. Gray *h/o CEA and KARLA: On Plavix, has followed with Dr. Pack *CKD III: Follows with Dr. Laughlin *HTN: *Influenza type A, P: -fluid restrict, hypertonic saline and ddavp, -serial Na for now, -Antiemetics, as needed, pt is tolerating po diet quite well -started on tamiflu for what its worth at this time. -Stool studies if diarrhea returns -Continue home diltiazem/Plavix/statin, hold diltazem today, pt was bradycardic overnight, monitor. -Hold ARB for now, d/c HCTZ - -PT/OT -ppx: Warfarin per pharmacy
[2018-10-28 10:56] LABS: Blood Urea Nitrogen 20 mg/dl (8-23)
[2018-10-28] MEDS ORDERED: WARFARIN 5 MG TABLET PO ONE (15:30)
[2018-10-28 16:57] LABS: Blood Urea Nitrogen 22 mg/dl (8-23)
[2018-10-28] MEDS ORDERED: SODIUM CHLORIDE 3 % 500 ML IV SCH ×2 (16:58→21:45)
[2018-10-28 21:09] LABS: Blood Urea Nitrogen 26 mg/dl (8-23)
[2018-10-28] MEDS: ATORVASTATIN 20 MG TABLET PO SCH (21:46)
[2018-10-29] MEDS: DESMOPRESSIN ACETATE 1 MCG in 0.9 % SODIUM CHLORIDE 50 ML IV SCH (05:44)
[2018-10-29] MEDS: 0.9 % SODIUM CHLORIDE 10 ML SYRINGE IV SCH ×3 (05:44→22:01)
[2018-10-29 06:06] LABS: Basophils # (Auto) 0 K/mcL (0.0-0.3); Basophils % (Auto) 0.5 % (0.0-2.0); Eosinophils # (Auto) 0.1 K/mcL (0.0-0.7); Eosinophils % (Auto) 1.6 % (0.0-7.0); Granulocytes % (Auto) 57.5 % (38.0-78.0); Lymphocytes # (Auto) 1.9 K/mcL (1.5-4.8); Lymphocytes % (Auto) 31.7 % (15.5-49.0); Mean Cell Volume 91.7 fL (80.0-100.0); Mean Corpuscular HGB Conc 32.6 g/dL (31.0-36.0); Monocytes # (Auto) 0.5 K/mcL (0.1-0.9); Monocytes % (Auto) 8.7 % (1.0-12.0); Platelet Count 120 K/mcL (140-440); RBC 4.15 M/mcL (4.00-5.20); Red Cell Distribution Width 13.1 % (11.5-14.5)
[2018-10-29 06:12] LABS: ALT/SGPT 13 U/l (0-40); Albumin 3.5 gm/dL (3.2-5.2); Albumin/Globulin Ratio 1.3 (1.0-2.3); Alkaline Phosphatase 68 U/L (39-117); Bilirubin,Direct < 0.2 mg/dL (0.0-0.3); Blood Urea Nitrogen 20 mg/dl (8-23); Gamma Glutamyl Transpeptidase 18 U/L (5-36); Uric Acid 4.2 mg/dL (2.5-8.0)
[2018-10-29] MEDS ORDERED: MAGNESIUM SULFATE 2 GM/50 ML BAG IV ONE (06:26)
[2018-10-29] MEDS ORDERED: DILTIAZEM 240 MG CAP.XL.24H PO SCH (09:00)
[2018-10-29] MEDS: FAMOTIDINE 20 MG TABLET PO SCH ×2 (09:14→20:26)
[2018-10-29] MEDS: OSELTAMIVIR PHOSPHATE 30 MG CAPSULE PO SCH ×2 (09:14→20:26)
[2018-10-29] MEDS: CLOPIDOGREL 75 MG TABLET PO SCH (09:15)
[2018-10-29] MEDS ORDERED: DILTIAZEM 180 MG CAP.XL.24H PO SCH (09:30)
[2018-10-29] MEDS ORDERED: hydrALAZINE 20 MG/ML VIAL IV PRN ×2 (09:46→10:31)
[2018-10-29 10:13] LABS: Blood Urea Nitrogen 16 mg/dl (8-23)
--- NOTE | 2018-10-29 10:13 | Internal Med Progress Note ---
Medical - PN: Subj Patient information: Note initiated : 10/29/18 at 10:10 am Service Date, if different from initiated Date: [] Patient: Lionel Knapp a 83 y/o F admitted on 10/26/18 for N/v, weakness, congested. Chief Complaint: [] Interval history: Ms. Knapp is a 83 year old F who presents to the ED with generalized weakness a weeks worth of occasional nausea vomiting and some occasional diarrhea as well as sinus congestion cough. Because of her severe weakness she came to the ED with her daughter. Reports about a week ago she developed cold symptoms feeling malaise and tired she had sinus congestion which is chronic but she had some continued cough with it. She says she was had a fever the first day. She has had occasional nausea vomiting the first 1 was mild when after water this morning. She had a little bit of diarrhea may be a small one once a day past couple days. She feels very weak. She denies any headache no current fevers or chills no chest pain. She feels her urination is the same as what it has been. Color is the same. She drinks 3-4 glasses of water a day. She has some abdominal discomfort describes more of a nausea. She was flu negative in the ED. She is on medication all losartan with hydrochlorothiazide in it. He says about a month ago she ran out over there is an issue with insurance and it was out into the ARB and the HCTZ. She was taking them separately. It was not until yesterday that she was able to get the combined pill form again to start taking. 10/27 No overnight events. Monitoring sodium closely. She had some nausea this morning but no vomiting. She feels a little bit stronger this morning. She has a chronic sinus drainage with associated cough. 10/28 patient seen examined, no acute issues,no more diarrhea, Pt able to tolerate po diet well tested positive for flu, on tamiflu Her sodium this AM is 119, rising appropriately, was started on ddavp and hypertonic saline yesterday. 10/29 Patient seen examined, no acute overnight events, doing well, Sodium this AM 121, slow appropriate rise, will cut mahendra on ddavp to q12 hrs, repeat sodium today, if no significant change increase rate to 30ml/hr. anticipate d/c once sodium level is > 130 xfer to med surg status. Pertinent ROS: Denies headache, dizziness Denies chest pain, palpitations Denies cough or shortness of breath Denies abdominal pain, nausea or vomiting. - Constitutional Vitals: Vital Signs Temp Pulse Resp BP Pulse Ox 98.4 F 49 L 14 185/78 97 10/29/18 08:26 10/28/18 08:00 10/29/18 08:26 10/29/18 08:26 10/29/18 08:26 Period Temp Pulse Resp BP Sys/Mcintosh Pulse Ox Last 24 Hr 96.7 F-98.9 F 13-20 127-185/59-78 94-98 Intake and Output 10/28/18 10/29/18 10/29/18 21:59 05:59 13:59 Intake Total 50.25 50.25 Output Total 500 300 700 Balance -449.75 -249.75 -700 Weight 125 lb 4.8 oz Intake & Output: Intake & Output 10/28/18 10/29/18 10/29/18 21:59 05:59 13:59 Intake Total 50.25 50.25 Output Total 500 300 700 Balance -449.75 -249.75 -700 Weight 125 lb 4.8 oz Intake: IV 50.25 50.25 Ddavp 1 Mcg In Sodium Chloride 50.25 50.25 0.9% 50 ml @ 200 mls/hr IV Q8 [facility] Rx#:[id number] Output: Urine Catheter Amount 200 Void Amount 500 300 500 Other: Urine Appearance Clear Clear Clear Urine Color Bright Yellow Bright Yellow Pale Urine Odor Normal # Voids 1 Exam: Constitutional; Afebrile, cooperative, alert, not in distress. Respiratory system: Air Entry equal on both sides, No crackles or wheezing, no rhonchi. CVS- Rate rhythm regular, S1,S2 heard, no gallop, no rub. Abdomen- Soft nontender abdomen, no organomegaly, no tenderness, no guarding or rigidity, [employer]ST- AOOx3, moving all extremities, no gross focal deficit noted. Medical - PN: Obj Da - Labs CBC & Chem 7: 10/29/18 04:14 10/29/18 04:14 Labs: Abnormal Lab Results 10/29/18 10/29/18 10/29/18 04:14 04:14 04:14 WBC Plt Count 120 L Gran # Lymph # (Auto) PT 22.8 H INR 2.0 H APTT POC Sodium Sodium 121 L POC Chloride Chloride 86 L POC BUN BUN POC Creatinine Glucose POC Glucose Osmolality Calcium 8.3 L POC WB Ioniz Calcium Phosphorus 1.8 L Magnesium 1.4 L Urine Protein 10/28/18 10/28/18 10/28/18 20:18 15:56 10:03 WBC Plt Count Gran # Lymph # (Auto) PT INR APTT POC Sodium Sodium 119 L* 118 L* 120 L POC Chloride Chloride 86 L 85 L 86 L POC BUN BUN 26 H POC Creatinine Glucose POC Glucose Osmolality Calcium 8.1 L 8.2 L POC WB Ioniz Calcium Phosphorus Magnesium Urine Protein 10/28/18 10/28/18 10/28/18 03:52 03:52 03:52 WBC Plt Count 123 L Gran # Lymph # (Auto) PT 21.8 H INR 1.9 H APTT POC Sodium Sodium 119 L* POC Chloride Chloride 84 L POC BUN BUN POC Creatinine Glucose 69 L POC Glucose Osmolality Calcium POC WB Ioniz Calcium Phosphorus 1.9 L Magnesium Urine Protein 10/28/18 10/27/18 10/27/18 01:20 21:10 15:48 WBC Plt Count Gran # Lymph # (Auto) PT INR APTT POC Sodium Sodium 116 L* 116 L* 111 L* POC Chloride Chloride 84 L 80 L 77 L POC BUN BUN 25 H POC Creatinine Glucose POC Glucose Osmolality Calcium 8.5 L POC WB Ioniz Calcium Phosphorus Magnesium Urine Protein 10/27/18 10/27/18 10/27/18 11:55 07:46 07:39 WBC Plt Count Gran # Lymph # (Auto) PT 18.6 H INR 1.6 H APTT POC Sodium Sodium 115 L* 116 L* POC Chloride Chloride 76 L 77 L POC BUN BUN POC Creatinine Glucose POC Glucose Osmolality Calcium POC WB Ioniz Calcium Phosphorus Magnesium Urine Protein 10/27/18 10/27/18 10/26/18 03:30 03:30 Unknown WBC 3.7 L Plt Count 121 L Gran # 1.7 L Lymph # (Auto) PT INR APTT POC Sodium Sodium 114 L* POC Chloride Chloride 78 L POC BUN BUN POC Creatinine Glucose POC Glucose Osmolality Calcium POC WB Ioniz Calcium Phosphorus 2.1 L Magnesium Urine Protein 30 A 10/26/18 10/26/18 10/26/18 23:04 22:08 21:01 WBC Plt Count Gran # Lymph # (Auto) PT INR APTT POC Sodium Sodium 109 L* 110 L* 109 L* POC Chloride Chloride 74 L 75 L 74 L POC BUN BUN POC Creatinine Glucose POC Glucose Osmolality Calcium POC WB Ioniz Calcium Phosphorus Magnesium Urine Protein 10/26/18 10/26/18 10/26/18 19:49 18:15 18:10 WBC Plt Count Gran # Lymph # (Auto) PT 19.9 H INR 1.7 H APTT 44 H POC Sodium 111 L* Sodium 109 L* POC Chloride 74 L Chloride 72 L POC BUN 26 H BUN 24 H POC Creatinine 1.3 H Glucose POC Glucose 107 H Osmolality 247 L Calcium POC WB Ioniz Calcium 1.10 L Phosphorus Magnesium Urine Protein 10/26/18 18:10 WBC 4.2 L Plt Count Gran # Lymph # (Auto) 1.2 L PT INR APTT POC Sodium Sodium POC Chloride Chloride POC BUN BUN POC Creatinine Glucose POC Glucose Osmolality Calcium POC WB Ioniz Calcium Phosphorus Magnesium Urine Protein Meds: Medications Acetaminophen (Tylenol) 650 mg PO Q6HP PRN PRN Reason: PAIN/FEVER > 101 Albuterol/Ipratropium (Duoneb) 3 ml NEB Q4HP PRN PRN Reason: Shortness Of Breath Atorvastatin Calcium (Lipitor) 10 mg PO [facility] Last Admin: 10/28/18 21:46 Dose: 10 mg Documented by: Clonidine HCl (Catapres) 0.1 mg PO QID PRN PRN Reason: sbp>150 Last Admin: 10/28/18 15:58 Dose: 0.1 mg Documented by: Clopidogrel Bisulfate (Plavix) 75 mg PO QDAY [facility] Last Admin: 10/29/18 09:15 Dose: 75 mg Documented by: Diltiazem HCl (Cardizem Cd) 180 mg PO DAILY [facility] Last Admin: 10/29/18 09:19 Dose: 180 mg Documented by: Diphenhydramine HCl (Benadryl) 25 mg IV Q4-6HP PRN PRN Reason: Allergic Symptoms or NAUSEA Last Admin: 10/27/18 20:12 Dose: 25 mg Documented by: Famotidine (Pepcid) 20 mg PO BID [facility] Last Admin: 10/29/18 09:14 Dose: 20 mg Documented by: Hydralazine HCl (Apresoline) 10 mg IV Q4-6HP PRN PRN Reason: Hypertension Potassium Chloride 40 meq/ (Dextrose) 520 mls @ 130 mls/hr IV ONCE PRN PRN Reason: Potassium < 3 Magnesium Sulfate (Magnesium Sulfate) 2 gm in 50 mls @ 50 mls/hr IV ONCE PRN PRN Reason: Magnesium </= 1.6 Sodium Chloride (Sodium Chloride 3%) 500 mls @ 25 mls/hr IV ONCE [facility] Stop: 10/29/18 18:00 Last Admin: 10/29/18 01:00 Dose: 25 mls/hr Documented by: Desmopressin Acetate 1 mcg/ (Sodium Chloride) 50.25 mls @ 200 mls/hr IV Q12H [facility] Ondansetron HCl (Zofran) 4 mg IV Q4HP PRN PRN Reason: Nausea And Vomiting Last Admin: 10/29/18 01:34 Dose: 4 mg Documented by: Oseltamivir Phosphate (Oseltamivir Phosphate) 30 mg PO BID [facility] Last Admin: 10/29/18 09:14 Dose: 30 mg Documented by: Polyethylene Glycol (Miralax) 17 gm PO DAILYP PRN PRN Reason: Constipation Potassium Chloride (Kdur) 40 meq PO ONCE PRN PRN Reason: Potssium is 3-3.5 Potassium Chloride (Kdur) 40 meq PO ONCE PRN PRN Reason: Potassium < 3 Prochlorperazine (Compazine) 10 mg IV Q6HP PRN PRN Reason: Nausea And Vomiting Promethazine HCl (Phenergan) 0 mg PO Q6HP PRN PRN Reason: Nausea And Vomiting Sodium Chloride (Saline Flush) 10 ml IV Q8 [facility] Last Admin: 10/29/18 05:44 Dose: 10 ml Documented by: Warfarin Sodium (Coumadin Per Pharmacy) 1 [place] [facility] [facility] [place] - PN: A/P - Time Spent With Patient Total time spent is greater than 50% in coordination of care (as documented) at patient's floor/unit and/or counseling patient: - Narrative A/P Narrative: A: *Hyponatremia, 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 Follows with Dr. Gray *h/o CEA and KARLA: On Plavix, has followed with Dr. Pack *CKD III: Follows with Dr. Laughlin *HTN: *Influenza type A, P: -fluid restrict, hypertonic saline and ddavp, -serial Na for now, sodium risking slowly and appropriately. -Antiemetics, as needed, pt is tolerating po diet quite well -started on tamiflu for what its worth at this time. -Stool studies if diarrhea returns -Continue home diltiazem/Plavix/statin, hold diltazem today, pt was bradycardic overnight, monitor. -Hold ARB for now, d/c HCTZ -HTN cardizem was held yesterday due to low HR, dose cut today from 240 to 180, prn hydralazine for blood pressure > 180 and or 100 - -PT/OT -ppx: Warfarin per pharmacy xfer to med surg status.
[2018-10-29] MEDS ORDERED: SODIUM CHLORIDE 3 % 500 ML IV SCH ×2 (10:16→10:31)
[2018-10-29] MEDS ORDERED: ENOXAPARIN 40 MG/0.4 ML SYRINGE SQ ONE (10:31)
[2018-10-29] MEDS ORDERED: IPRATROPIUM/ALBUTEROL 3 ML AMPUL.NEB NEB PRN (10:31)
[2018-10-29] MEDS ORDERED: POTASSIUM CHLORIDE 40 MEQ in DEXTROSE 5% IN WATER 500 ML IV PRN (10:31)
[2018-10-29] MEDS ORDERED: POLYETHYLENE GLYCOL 3350 17 GM PACKET PO PRN (10:31)
[2018-10-29] MEDS ORDERED: MAGNESIUM SULFATE 2 GM/50 ML BAG IV PRN (10:31)
[2018-10-29] MEDS ORDERED: ACETAMINOPHEN 325 MG TABLET PO PRN (10:31)
[2018-10-29] MEDS ORDERED: cloNIDine HCL 0.1 MG TABLET PO PRN (10:31)
[2018-10-29] MEDS ORDERED: POTASSIUM CHLORIDE 20 MEQ TABLET PO PRN ×2 (10:31)
[2018-10-29] MEDS ORDERED: ONDANSETRON 4 MG/2 ML VIAL IV PRN (10:31)
[2018-10-29] MEDS ORDERED: PROCHLORPERAZINE 10 MG/2 ML VIAL IV PRN (10:31)
[2018-10-29] MEDS ORDERED: PROMETHAZINE 25 MG TABLET PO PRN (10:31)
[2018-10-29] MEDS ORDERED: WARFARIN 5 MG TABLET PO ONE (14:00)
[2018-10-29 15:22] LABS: Blood Urea Nitrogen 20 mg/dl (8-23)
[2018-10-29] MEDS ORDERED: DESMOPRESSIN ACETATE 1 MCG in 0.9 % SODIUM CHLORIDE 50 ML IV SCH ×2 (16:00→18:00)
[2018-10-29] MEDS: diphenhydrAMINE 50 MG/ML VIAL IV PRN (20:25)
[2018-10-29] MEDS: ATORVASTATIN 20 MG TABLET PO SCH (20:26)
[2018-10-29 21:33] LABS: Blood Urea Nitrogen 21 mg/dl (8-23)
[2018-10-29] MEDS: SODIUM CHLORIDE 1 GM TABLET PO SCH (22:00)
[2018-10-30] MEDS: 0.9 % SODIUM CHLORIDE 10 ML SYRINGE IV SCH ×3 (05:41→20:08)
[2018-10-30 06:15] LABS: Basophils # (Auto) 0 K/mcL (0.0-0.3); Basophils % (Auto) 0.5 % (0.0-2.0); Eosinophils # (Auto) 0.1 K/mcL (0.0-0.7); Eosinophils % (Auto) 1.9 % (0.0-7.0); Granulocytes % (Auto) 54.7 % (38.0-78.0); Lymphocytes # (Auto) 1.8 K/mcL (1.5-4.8); Mean Cell Volume 90.5 fL (80.0-100.0); Mean Corpuscular HGB Conc 33.7 g/dL (31.0-36.0); Monocytes # (Auto) 0.5 K/mcL (0.1-0.9); Monocytes % (Auto) 8.9 % (1.0-12.0); Platelet Count 125 K/mcL (140-440); RBC 3.75 M/mcL (4.00-5.20); Red Cell Distribution Width 13.6 % (11.5-14.5)
[2018-10-30] MEDS: ENOXAPARIN 60 MG/0.6 ML SYRINGE SQ SCH (06:37)
[2018-10-30 06:43] LABS: ALT/SGPT 13 U/l (0-40); Albumin 3.3 gm/dL (3.2-5.2); Albumin/Globulin Ratio 1.2 (1.0-2.3); Alkaline Phosphatase 62 U/L (39-117); Bilirubin,Direct < 0.2 mg/dL (0.0-0.3); Blood Urea Nitrogen 16 mg/dl (8-23); Gamma Glutamyl Transpeptidase 17 U/L (5-36); Uric Acid 3.4 mg/dL (2.5-8.0)
[2018-10-30] MEDS: DILTIAZEM 180 MG CAP.XL.24H PO SCH (08:58)
[2018-10-30] MEDS: CLOPIDOGREL 75 MG TABLET PO SCH (08:59)
[2018-10-30] MEDS: SODIUM CHLORIDE 1 GM TABLET PO SCH ×3 (08:59→20:08)
[2018-10-30] MEDS: FAMOTIDINE 20 MG TABLET PO SCH ×2 (09:01→20:07)
[2018-10-30] MEDS: OSELTAMIVIR PHOSPHATE 30 MG CAPSULE PO SCH ×2 (09:01→20:08)
[2018-10-30 11:13] LABS: Blood Urea Nitrogen 15 mg/dl (8-23)
--- NOTE | 2018-10-30 11:55 | Internal Med Progress Note ---
Medical - PN: Subj Patient information: Note initiated : 10/30/18 at 11:52 am Service Date, if different from initiated Date: [] Patient: Lionel Knapp a 83 y/o F admitted on 10/26/18 for N/v, weakness, congested. Chief Complaint: [] Interval history: Ms. Knapp is a 83 year old F who presents to the ED with generalized weakness a weeks worth of occasional nausea vomiting and some occasional diarrhea as well as sinus congestion cough. Because of her severe weakness she came to the ED with her daughter. Reports about a week ago she developed cold symptoms feeling malaise and tired she had sinus congestion which is chronic but she had some continued cough with it. She says she was had a fever the first day. She has had occasional nausea vomiting the first 1 was mild when after water this morning. She had a little bit of diarrhea may be a small one once a day past couple days. She feels very weak. She denies any headache no current fevers or chills no chest pain. She feels her urination is the same as what it has been. Color is the same. She drinks 3-4 glasses of water a day. She has some abdominal discomfort describes more of a nausea. She was flu negative in the ED. She is on medication all losartan with hydrochlorothiazide in it. He says about a month ago she ran out over there is an issue with insurance and it was out into the ARB and the HCTZ. She was taking them separately. It was not until yesterday that she was able to get the combined pill form again to start taking. 10/27 No overnight events. Monitoring sodium closely. She had some nausea this morning but no vomiting. She feels a little bit stronger this morning. She has a chronic sinus drainage with associated cough. 10/28 patient seen examined, no acute issues,no more diarrhea, Pt able to tolerate po diet well tested positive for flu, on tamiflu Her sodium this AM is 119, rising appropriately, was started on ddavp and hypertonic saline yesterday. 10/29 Patient seen examined, no acute overnight events, doing well, Sodium this AM 121, slow appropriate rise, will cut mahendra on ddavp to q12 hrs, repeat sodium today, if no significant change increase rate to 30ml/hr. anticipate d/c once sodium level is > 130 xfer to med surg status. 10/30 Patient seen and examined, no acute overnight concerns. Feels a bit constipated otherwise no acute complaints. Sodium level was 127 this morning, is 125 a little later. She is off hypertonic saline drip since yesterday, just on salt tablets and fluid restriction. Will watch her another day and see how she does Pertinent ROS: Denies headache, dizziness Denies chest pain, palpitations Denies cough or shortness of breath Denies abdominal pain, nausea or vomiting. - Constitutional Vitals: Vital Signs Temp Pulse Resp BP Pulse Ox 96.9 F L 60 14 150/57 96 10/30/18 11:31 10/30/18 11:31 10/30/18 11:31 10/30/18 11:31 10/30/18 04:01 Period Temp Pulse Resp BP Sys/Mcintosh Pulse Ox Last 24 Hr 96.9 F-98.5 F 50-88 14-24 134-163/43-85 95-97 Intake and Output 10/29/18 10/30/18 10/30/18 21:59 05:59 13:59 Intake Total 1340.25 200 Output Total 250 Balance 1090.25 200 Weight 127 lb 8 oz Intake & Output: Intake & Output 10/29/18 10/30/18 10/30/18 21:59 05:59 13:59 Intake Total 1340.25 200 Output Total 250 Balance 1090.25 200 Weight 127 lb 8 oz Intake: IV 550.25 Ddavp 1 Mcg In Sodium Chloride 50.25 0.9% 50 ml @ 200 mls/hr IV Q12H [facility] Rx#:[id number] Oral 790 200 Output: Void Amount 250 Other: Urine Appearance Clear Urine Color Bright Yellow # Voids 1 1 Exam: Constitutional; Afebrile, cooperative, alert, not in distress. Respiratory system: Air Entry equal on both sides, No crackles or wheezing, no rhonchi. CVS- Rate rhythm regular, S1,S2 heard, no gallop, no rub. Abdomen- Soft nontender abdomen, no organomegaly, no tenderness, no guarding or rigidity, BINMAN- AOOx3, moving all extremities, no gross focal deficit noted. Medical - PN: Obj Da - Labs CBC & Chem 7: 10/30/18 04:08 10/30/18 10:10 Labs: Abnormal Lab Results 10/30/18 10/30/18 10/30/18 10:10 04:08 04:08 RBC 3.75 L Hgb 11.4 L Hct 33.9 L Plt Count 125 L PT INR Sodium 125 L 127 L Chloride 91 L 92 L Anion Gap 7.0 L BUN Glucose Calcium 8.4 L Phosphorus 1.7 L Magnesium 10/30/18 10/29/18 10/29/18 04:08 19:58 14:31 RBC Hgb Hct Plt Count PT 23.1 H INR 2.1 H Sodium 125 L 123 L Chloride 90 L 90 L Anion Gap BUN Glucose Calcium 8.3 L Phosphorus Magnesium 10/29/18 10/29/18 10/29/18 09:12 04:14 04:14 RBC Hgb Hct Plt Count 120 L PT INR Sodium 118 L* 121 L Chloride 83 L 86 L Anion Gap BUN Glucose 148 H Calcium 8.5 L 8.3 L Phosphorus 1.8 L Magnesium 1.4 L 10/29/18 10/28/18 10/28/18 04:14 20:18 15:56 RBC Hgb Hct Plt Count PT 22.8 H INR 2.0 H Sodium 119 L* 118 L* Chloride 86 L 85 L Anion Gap BUN 26 H Glucose Calcium 8.1 L 8.2 L Phosphorus Magnesium 10/28/18 10/28/18 10/28/18 10:03 03:52 03:52 RBC Hgb Hct Plt Count 123 L PT INR Sodium 120 L 119 L* Chloride 86 L 84 L Anion Gap BUN Glucose 69 L Calcium Phosphorus 1.9 L Magnesium 10/28/18 10/28/18 10/27/18 03:52 01:20 21:10 RBC Hgb Hct Plt Count PT 21.8 H INR 1.9 H Sodium 116 L* 116 L* Chloride 84 L 80 L Anion Gap BUN 25 H Glucose Calcium 8.5 L Phosphorus Magnesium 10/27/18 10/27/18 15:48 11:55 RBC Hgb Hct Plt Count PT INR Sodium 111 L* 115 L* Chloride 77 L 76 L Anion Gap BUN Glucose Calcium Phosphorus Magnesium Meds: Medications Acetaminophen (Tylenol) 650 mg PO Q6HP PRN PRN Reason: PAIN/FEVER > 101 Albuterol/Ipratropium (Duoneb) 3 ml NEB Q4HP PRN PRN Reason: Shortness Of Breath Atorvastatin Calcium (Lipitor) 10 mg PO HS [facility] Last Admin: 10/29/18 20:26 Dose: 10 mg Documented by: Clonidine HCl (Catapres) 0.1 mg PO QIDP PRN PRN Reason: sbp>150 Clopidogrel Bisulfate (Plavix) 75 mg PO QDAY [facility] Last Admin: 10/30/18 08:59 Dose: 75 mg Documented by: Diltiazem HCl (Cardizem Cd) 180 mg PO DAILY [facility] Last Admin: 10/30/18 08:58 Dose: 180 mg Documented by: Diphenhydramine HCl (Benadryl) 25 mg IV Q4-6HP PRN PRN Reason: Allergic Symptoms or NAUSEA Last Admin: 10/29/18 20:25 Dose: 25 mg Documented by: Famotidine (Pepcid) 20 mg PO BID [facility] Last Admin: 10/30/18 09:01 Dose: 20 mg Documented by: Hydralazine HCl (Apresoline) 10 mg IV Q4-6HP PRN PRN Reason: Hypertension Potassium Chloride 40 meq/ (Dextrose) 520 mls @ 130 mls/hr IV ONCE PRN PRN Reason: Potassium < 3 Magnesium Sulfate (Magnesium Sulfate) 2 gm in 50 mls @ 50 mls/hr IV ONCE PRN PRN Reason: Magnesium </= 1.6 Ondansetron HCl (Zofran) 4 mg IV Q4HP PRN PRN Reason: Nausea And Vomiting Oseltamivir Phosphate (Oseltamivir Phosphate) 30 mg PO BID [facility] Last Admin: 10/30/18 09:01 Dose: 30 mg Documented by: Polyethylene Glycol (Miralax) 17 gm PO DAILYP PRN PRN Reason: Constipation Potassium Chloride (Kdur) 40 meq PO ONCE PRN PRN Reason: Potssium is 3-3.5 Potassium Chloride (Kdur) 40 meq PO ONCE PRN PRN Reason: Potassium < 3 Prochlorperazine (Compazine) 10 mg IV Q6HP PRN PRN Reason: Nausea And Vomiting Promethazine HCl (Phenergan) 0 mg PO Q6HP PRN PRN Reason: Nausea And Vomiting Sodium Chloride (Saline Flush) 10 ml IV Q8 [facility] Last Admin: 10/30/18 05:41 Dose: 10 ml Documented by: Sodium Chloride (Sodium Chloride) 2 gm PO TID [facility] Last Admin: 10/30/18 08:59 Dose: 2 gm Documented by: Warfarin Sodium (Coumadin Per Pharmacy) 1 order PO UD [facility] Warfarin Sodium (Coumadin) 5 mg PO ONCE@1400 ONE Stop: 10/30/18 14:01 Medical - PN: A/P - Time Spent With Patient Total time spent is greater than 50% in coordination of care (as documented) at patient's floor/unit and/or counseling patient: - Narrative A/P Narrative: A: *Hyponatremia, 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 Follows with Dr. Gray *h/o CEA and KARLA: On Plavix, has followed with Dr. Pack *CKD III: Follows with Dr. Laughlin *HTN: *Influenza type A, P: -fluid restrict, off hypertonic saline now, sodium is > 125 - check sodium again tomorrow in AM. -Antiemetics, as needed, pt is tolerating po diet quite well -senna and prn miralax for consipation -started on tamiflu -Stool studies if diarrhea returns -Continue home diltiazem/Plavix/statin, on lower dose of cardizem now, bp is stable. -resume arb, losartan at 25 - -PT/OT -ppx: Warfarin per pharmacy
[2018-10-30] MEDS: LOSARTAN 25 MG TABLET PO SCH (12:44)
[2018-10-30] MEDS ORDERED: WARFARIN 5 MG TABLET PO ONE (14:00)
[2018-10-30] MEDS: ATORVASTATIN 20 MG TABLET PO SCH (20:07)
[2018-10-30] MEDS: diphenhydrAMINE 50 MG/ML VIAL IV PRN (20:07)
[2018-10-30] MEDS ORDERED: SENNOSIDES/DOCUSATE SODIUM 1 TAB TABLET PO SCH (21:00)
[2018-10-30 22:55] LABS: Appearance,Urine HAZY; Bacteria,Urine FEW /hpf (0); Bilirubin,Urine NEG (NEG); Color,Urine YELLOW; Glucose,Urine (UA) NEGATIVE (NEG); Leukocyte Esterase,Urine 250 /uL (NEG); Mucus,Urine FEW /hpf (0); Protein,Urine 30 mg/dL (NEG); Specific Gravity,Urine 1.019 (1.000-1.035); Urine Blood NEG mg/dL (<0.03); Urine RBC 7 /hpf (0-1); Urine Squamous Epithelial Cell 2 /hpf (0-4); Urine WBC 88 /hpf (0-4)
[2018-10-30] MEDS ORDERED: cefTRIAXone 1 GM VIAL ONE (23:19)
[2018-10-30] MEDS: cefTRIAXone 1 GM VIAL IV SCH (23:22)
[2018-10-31] MEDS: 0.9 % SODIUM CHLORIDE 10 ML SYRINGE IV SCH ×2 (05:02→11:45)
[2018-10-31 05:51] LABS: Basophils # (Auto) 0 K/mcL (0.0-0.3); Basophils % (Auto) 0.4 % (0.0-2.0); Eosinophils # (Auto) 0.1 K/mcL (0.0-0.7); Eosinophils % (Auto) 2.3 % (0.0-7.0); Granulocytes % (Auto) 59.7 % (38.0-78.0); Lymphocytes # (Auto) 1.5 K/mcL (1.5-4.8); Lymphocytes % (Auto) 28.5 % (15.5-49.0); Mean Cell Volume 90.9 fL (80.0-100.0); Mean Corpuscular HGB Conc 33.6 g/dL (31.0-36.0); Monocytes # (Auto) 0.5 K/mcL (0.1-0.9); Monocytes % (Auto) 9.1 % (1.0-12.0); Platelet Count 119 K/mcL (140-440); RBC 3.37 M/mcL (4.00-5.20); Red Cell Distribution Width 13.8 % (11.5-14.5)
[2018-10-31 06:02] LABS: ALT/SGPT 26 U/l (0-40); Albumin 3.2 gm/dL (3.2-5.2); Albumin/Globulin Ratio 1.3 (1.0-2.3); Alkaline Phosphatase 63 U/L (39-117); Bilirubin,Direct < 0.2 mg/dL (0.0-0.3); Blood Urea Nitrogen 16 mg/dl (8-23); Gamma Glutamyl Transpeptidase 22 U/L (5-36); Uric Acid 3.3 mg/dL (2.5-8.0)
--- NOTE | 2018-10-31 10:13 | Discharge Summary ---
Medical - DS: Prov Patient information: Note initiated : 10/31/18 at 10:10 am Service Date, if different from initiated Date: [] Patient: Lionel Knapp 83 y/o F admitted on 10/26/18 for N/v, weakness, congested. Chief Complaint: [] Date of admission: 10/26/18 21:36 Discharge date: 10/31/18 Primary care physician: Abebe Cruz MD Consults: 10/26/18 Consult to Physician [CONS] Stat Comment: Consulting Provider: Avi Simmons Reason For Exam: Physician to Consult Discharging clinician: Jay Saavedra Medical - DS: Meds - Discharge Medications Prescriptions: Cefuroxime [Ceftin] 500 mg PO Q12 #4 tab Losartan [Cozaar] 50 mg PO DAILY #30 tab Oseltamivir Phosphate 30 mg PO BID #8 cap Sodium Chloride 1 gm PO TID #90 tab Active and Home Medications: Home Medications multivitamin tablet 1 tab PO QDAY tab 02/03/15 [History Confirmed 10/30/18 Last Taken Unknown] clopidogrel 75 mg tablet 75 mg PO QDAY 07/20/17 [History Confirmed 10/26/18 Last Taken Unknown] glucosamine HCl 1,500 mg tablet 1,500 mg PO QDAY 07/20/17 [History Confirmed 10/30/18 Last Taken Unknown] Vitamin D3 1,000 units PO QDAY 11/16/17 [History Confirmed 10/30/18 Last Taken Unknown] flaxseed oil 1,000 mg capsule 1,000 mg PO QDAY 11/16/17 [History Confirmed 10/30/18 Last Taken Unknown] rosuvastatin 5 mg tablet 5 mg PO QDAY #60 tab 12/29/17 [Rx Confirmed 10/26/18 Last Taken Unknown] olmesartan 40 mg-hydrochlorothiazide 25 mg tablet 1 tab PO QDAY #60 tab 03/15/18 [Rx Confirmed 10/26/18 Last Taken Unknown] diltiazem CD 240 mg capsule,extended release 24 hr 240 mg PO QDAY 05/17/18 [History Confirmed 10/26/18 Last Taken Unknown] Warfarin [Coumadin] 5 mg PO SUTUTHSA 10/27/18 [History Confirmed 10/27/18 Last Taken Unknown] Warfarin [Coumadin] 7.5 mg PO MOWEFR 10/27/18 [History Confirmed 10/27/18 Last Taken Unknown] Medical - DS: Hosp Hospital course: M Ms. Knapp is a 83 year old F who presents to the ED with generalized weakness a weeks worth of occasional nausea vomiting and some occasional diarrhea as well as sinus congestion cough. Because of her severe weakness she came to the ED with her daughter. Reports about a week ago she developed cold symptoms feeling malaise and tired she had sinus congestion which is chronic but she had some continued cough with it. She says she was had a fever the first day. She has had occasional nausea vomiting the first 1 was mild when after water this morning. She had a little bit of diarrhea may be a small one once a day past couple days. She feels very weak. She denies any headache no current fevers or chills no chest pain. She feels her urination is the same as what it has been. Color is the same. She drinks 3-4 glasses of water a day. She has some abdominal discomfort describes more of a nausea. She was flu negative in the ED. She is on medication all losartan with hydrochlorothiazide in it. He says about a month ago she ran out over there is an issue with insurance and it was out into the [facility] and the HCTZ. She was taking them separately. It was not until yesterday that she was able to get the combined pill form again to start taking. 10/27 No overnight events. Monitoring sodium closely. She had some nausea this morning but no vomiting. She feels a little bit stronger this morning. She has a chronic sinus drainage with associated cough. 10/28 patient seen examined, no acute issues,no more diarrhea, Pt able to tolerate po diet well tested positive for flu, on tamiflu Her sodium this AM is 119, rising appropriately, was started on ddavp and hypertonic saline yesterday. 10/29 Patient seen examined, no acute overnight events, doing well, Sodium this AM 121, slow appropriate rise, will cut mahendra on ddavp to q12 hrs, repeat sodium today, if no significant change increase rate to 30ml/hr. anticipate d/c once sodium level is > 130 xfer to med surg status. 10/30 Patient seen and examined, no acute overnight concerns. Feels a bit constipated otherwise no acute complaints. Sodium level was 127 this morning, is 125 a little later. She is off hypertonic saline drip since yesterday, just on salt tablets and fluid restriction. Will watch her another day and see how she does 10/31 Patient seen and examined, no acute overnight events. Sodium is at 129 today. Doing much better stable for discharge. The patient will continue rest of her medications as prescribed by her primary provider In summary of 83-year-old female was admitted to the hospital because of weakness, congestion and some cough, she had been started on olmesartan hydrochlorothiazide recently. On presentation she had a sodium of 109. She also was diagnosed with influenza. During the hospital course she developed signs of cystitis. For hyponatremia she was treated with hypertonic saline and fluid restriction, the patient responded to treatment well. Sodium was corrected appropriately. At the time of discharge sodium level is 129. She will take salt tablets 1 g 3 times a day and recheck her labs in 1 week with her PCP The patient for influenza will take Tamiflu and complete the course of her influenza treatment. For cystitis stable take cefuroxime for 2 more days for total of 3-day course. For hypertension we will stop the combination of olmesartan hydrochlorothiazide and start the patient on just losartan 50 mg once a day. Her PCP can further titrate the dose of this medication or choose an alternative Discharge diagnosis: Hyponatremia, Cystitis, Influenza - Time Spent with Patient Total time spent providing and/or coordinating discharge services: Greater than 30 minutes Medical - DS: Exam - Constitutional Vitals: Vital Signs Temp Pulse Pulse Resp BP Pulse Ox 10/31/18 08:00 97.6 F 55 L 22 157/62 96 10/31/18 03:09 97.9 F 48 L 22 129/52 95 10/30/18 23:34 98.4 F 60 24 H 172/67 97 10/30/18 18:43 98.5 F 60 22 117/56 95 10/30/18 15:41 97.6 F 84 20 160/60 10/30/18 11:31 96.9 F L 60 14 150/57 Intake and Output 10/30/18 10/31/18 10/31/18 21:59 05:59 13:59 Intake Total 480 240 Output Total 60 250 150 Balance 420 -10 -150 Intake: Oral 480 240 Output: Void Amount 60 250 150 Other: Meal Dinner Percent of Meal Consumed 75% Feeding Ability Independent Urine Appearance Clear Clear Clear Urine Color Straw Pale Dark Yellow Urine Odor Normal Normal Stool Size Small Small Stool Color Brown Brown Stool Consistency Formed Formed # Voids 1 1 # Bowel Movements 1 1 Weight 128 lb Additional comments: Constitutional; Afebrile, cooperative, alert, not in distress. Respiratory system: Air Entry equal on both sides, No crackles or wheezing, no rhonchi. CVS- Rate rhythm regular, S1,S2 heard, no gallop, no rub. Abdomen- Soft nontender abdomen, no organomegaly, no tenderness, no guarding or rigidity, [employer]- AOOx3, moving all extremities, no gross focal deficit noted. Medical - DS: Data Labs on day of discharge: Labs from last 24 hours 10/31/18 10/31/18 10/31/18 04:00 04:00 04:00 WBC 5.4 RBC 3.37 L Hgb 10.3 L Hct 30.6 L MCV 90.9 MCH 30.5 MCHC 33.6 RDW 13.8 Plt Count 119 L MPV 9.3 Gran % 59.7 Lymph % (Auto) 28.5 [place] % (Auto) 9.1 Eos % (Auto) 2.3 Baso % (Auto) 0.4 Gran # 3.2 Lymph # (Auto) 1.5 [place] # (Auto) 0.5 Eos # (Auto) 0.1 Baso # (Auto) 0 PT 25.1 H INR 2.3 H Sodium 129 L Potassium 4.6 Chloride 96 Carbon Dioxide 25 Anion Gap 8.0 BUN 16 Creatinine 0.9 GFR Calculation 58 Glucose 83 Uric Acid 3.3 Calcium 8.6 Phosphorus 1.9 L Magnesium 1.7 Total Bilirubin 0.3 Direct Bilirubin < 0.2 GGT 22 AST 39 H ALT 26 Alkaline Phosphatase 63 Lactate Dehydrogenase 192 Total Protein 5.6 L Albumin 3.2 Globulin 2.4 Albumin/Globulin Ratio 1.3 Triglycerides 45 Urine Color Urine Appearance Urine pH Ur Specific [place] Urine Protein Urine Glucose (UA) Urine Ketones Urine Occult Blood Urine Nitrate Urine Bilirubin Urine Urobilinogen Ur Leukocyte Esterase Urine RBC Urine WBC Ur Squamous Epith Cells Urine Bacteria Urine Mucus Ur Culture Indicated? 10/30/18 10/30/18 18:55 10:10 WBC RBC Hgb Hct MCV MCH MCHC RDW Plt Count MPV Gran % Lymph % (Auto) [place] % (Auto) Eos % (Auto) Baso % (Auto) Gran # Lymph # (Auto) [place] # (Auto) Eos # (Auto) Baso # (Auto) PT INR Sodium 125 L Potassium 4.2 Chloride 91 L Carbon Dioxide 27 Anion Gap 7.0 L BUN 15 Creatinine 0.9 GFR Calculation 58 Glucose 86 Uric Acid Calcium 8.7 Phosphorus Magnesium Total Bilirubin Direct Bilirubin GGT AST ALT Alkaline Phosphatase Lactate Dehydrogenase Total Protein Albumin Globulin Albumin/Globulin Ratio Triglycerides Urine Color Yellow Urine Appearance Hazy Urine pH 7.0 Ur Specific [place] 1.019 Urine Protein 30 A Urine Glucose (UA) Negative Urine Ketones Neg Urine Occult Blood Neg Urine Nitrate Neg Urine Bilirubin Neg Urine Urobilinogen 2.0 A Ur Leukocyte Esterase 250 A Urine RBC 7 H Urine WBC 88 H Ur Squamous Epith Cells 2 Urine Bacteria Few A Urine Mucus Few Ur Culture Indicated? Yes Medical - DS: A/P - Patient/Caregiver Discharge Instructions Activity: increase activity as tolerated Diet: Regular Diet Additional Instructions: Take sodium chloride tablet, 1 gm three times a day, follow up and check your labs with PCP in 1 week Follow up with PCP fo your usual coumadin dosing, no changes made to home dose. You have Urinary tract infection and influenza, you are being prescribed tamiflu and cefuroxime, please take these medication till finished. For your blood pressure, do not take olmesartan-hctz. Start on losartan 50mg once daily. Go to the ER if worsening symptoms, chest pain shortness of breath and any other acute concern. - Follow up Plan Follow up with: Abebe Cruz MD [Primary Care Provider] - Disposition: Home Health Service Prognosis: Fair Rehab Potential: Fair I certify that the patient requires SNF services: No Overall status at discharge: patient is progressing back to baseline
[2018-10-31] MEDS: FAMOTIDINE 20 MG TABLET PO SCH (11:16)
[2018-10-31] MEDS: LOSARTAN 25 MG TABLET PO SCH (11:16)
[2018-10-31] MEDS: SODIUM CHLORIDE 1 GM TABLET PO SCH (11:17)
[2018-10-31] MEDS: CLOPIDOGREL 75 MG TABLET PO SCH (11:17)
[2018-10-31] MEDS: OSELTAMIVIR PHOSPHATE 30 MG CAPSULE PO SCH (11:17)
[2018-10-31] MEDS: DILTIAZEM 180 MG CAP.XL.24H PO SCH (11:17)
[2018-10-31] MEDS ORDERED: WARFARIN 5 MG TABLET PO ONE (14:00)
[2018-10-31] MEDS: cefTRIAXone 1 GM VIAL IV SCH (14:31)
== END 2018-10-31 14:50 | disposition home health service (06) | DRG 644 ==
LOC: ED 17:27 → ICU 21:36 → MEDSUR 10-29 17:57
PROVIDERS: ADMIT Internal Medicine; ATTEND Internal Medicine

== ENCOUNTER 2021-06-16 19:28 | Inpatient (IN) ==
[2021-06-16] MEDS ORDERED: 0.9 % SODIUM CHLORIDE 500 ML IV ONE (19:57)
--- NOTE | 2021-06-16 19:58 | Emergency Department Note ---
Abdominal Pain HPI General Chief Complaint: Abdominal Pain Stated Complaint: abdominal pain Time Seen by Provider: 06/16/21 19:39 Source: family Mode of arrival: ambulatory Limitations: no limitations History of Present Illness HPI Narrative: Narrative: Patient presents to the ED for persistent mid abdominal pain and nausea. Flared up in the past 1 to 2 days but ongoing for the past 5 days. Was here Monday for similar albeit milder symptoms. Was found to be a bit dehydrated and hyponatremic was given some IV fluids discharged home. Patient denies any vomiting denies fever chills URI symptoms cardiorespiratory complaints genitourinary symptoms. No focal neurologic symptoms no recent medication changes, no new medications. Does have a history of appendectomy Related Data Home Medications Medication Instructions Recorded Confirmed multivitamin 1 tab PO QDAY tab 02/03/15 06/03/21 glucosamine HCl 1,500 mg tablet 1,500 mg PO QDAY 07/20/17 06/03/21 flaxseed oil 1,000 mg capsule 1,000 mg PO QDAY 11/16/17 06/03/21 apixaban 5 mg tablet (Eliquis) 5 mg PO BID 12/26/18 06/03/21 fexofenadine 180 mg tablet 180 mg PO QDAY 09/04/20 06/03/21 ([facility]) Previous Rx's Medication Instructions Recorded diltiazem HCl 360 mg 360 mg PO QDAY #90 cap 05/26/20 capsule,extended release 24 hr B/L knee high compression garments #1 ea 12/31/20 (15-20 mmHg) lidocaine 5 % topical patch 1 patch TOPICAL QDAY #15 ea 12/31/20 valsartan 160 mg tablet 160 mg PO QDAY #90 tab 01/28/21 torsemide 10 mg tablet 10 mg PO QDAY #90 tab 03/18/21 hydralazine 25 mg tablet 25 mg PO TID #270 tab 03/30/21 rosuvastatin 5 mg tablet 5 mg PO QDAY #90 tab 03/30/21 Allergies Allergy/AdvReac Type Severity Reaction Status Date / Time Cisapride [From Propulsid] Allergy Mild Diarrhea Verified 06/03/21 11:03 ezetimibe [From Zetia] Allergy Mild Diarrhea Verified 06/03/21 11:03 loratadine [From Claritin] Allergy Mild "Funny Verified 06/03/21 11:03 feeling" ciprofloxacin [From Cipro] AdvReac Intermediate Delerium Verified 06/03/21 11:03 MRI (stent) AdvReac Severe Other Uncoded 02/04/21 11:00 Review of Systems ROS ROS Narrative: Narrative: At least 10 systems reviewed and otherwise acutely negative except as in the HPI PFSH Narrative Patient History Narrative: Narrative: Medical/Surgical/Family History All Active Problems (Updated 06/17/21 @ 03:27 by Andrew Keene DO) Generalized weakness (Acute) Hyponatremia (Acute) Dehydration (Acute) Acute hyponatremia (Acute) Abdominal pain (Acute) Urinary tract infection (Acute) Low energy (Acute) Bilateral lower extremity edema (Acute) Back pain (Acute) Venous insufficiency (Acute) Hyponatremia (Chronic) Dysuria (Acute) Dysuria (Acute) Chronic kidney disease (CKD) stage G3b/A2, moderately decreased glomerular filtration rate (GFR) between 30-44 mL/min/1.73 square meter and albuminuria creatinine ratio between 30-299 mg/g (Chronic) Cystitis (Acute) Parathyroid related hypercalcemia (Chronic) Hyperparathyroidism (Chronic) Chronic pruritus (Acute) Atopic dermatitis (Acute) History of sinus surgery (Chronic) History of renal stent (Chronic) History of common carotid artery stent placement (Chronic) History of tonsillectomy (Chronic) History of appendectomy (Chronic) History of rotator cuff surgery (Chronic) Rheumatic fever (Chronic) Kidney failure (Chronic) Joint pain (Chronic) Hypercholesterolemia (Chronic) Daytime sleepiness (Chronic) Blood disorder (Chronic) Arthritis (Chronic) Closed left clavicular fracture (Acute) Guaiac positive stools (Acute) Hematoma (Acute) Anticoagulant long-term use (Chronic 10/30/13) Atrial fibrillation (Chronic ~1998) Hypertension (Chronic) Benign hypertension with CKD (chronic kidney disease) stage III (Chronic) History of stent insertion of renal artery (Chronic) Carotid stenosis (Chronic) Postgastric surgery syndrome (Chronic) Microscopic hematuria (Chronic) Weight loss (Chronic) Urinary incontinence (Chronic) Primary small intestine carcinoid tumor (Chronic) Raynauds syndrome (Chronic) Positive RYLAND (antinuclear antibody) (Chronic) Polymyalgia rheumatica (Chronic) Mitral valve regurgitation (Chronic) Meckel's diverticulum (Chronic) Hyperlipidemia (Chronic) Esophagitis (Chronic) Degenerative arthritis (Chronic) Colon polyps (Chronic 11/27/08) Back pain (Chronic) Medical History Anticoagulant long-term use (10/30/13) Arthritis Atrial fibrillation (~1998) Chronic with mitral regurgitation. Coumadin Back pain Back pain Benign hypertension with CKD (chronic kidney disease) stage III Biceps muscle tear Bilateral lower extremity edema Blood disorder Blood thinner Carotid stenosis Chronic pruritus Colon polyps (11/27/08) Hyperplastic Daytime sleepiness Degenerative arthritis Multi joint Dysphagia Slight, on a background of history of esophagitis and Saba's, EGD 2008 Dysuria Dysuria Esophagitis History of, EGD in 11/2008 Fibrocystic disease of breast Mammogram done 09/24/12 History of common carotid artery stent placement History of stent insertion of renal artery Hypercholesterolemia Hyperlipidemia Improved with diet treatment; multiple medicine intolerances Hypertension Hypovitaminosis D Joint pain Kidney failure one is gone; one at 27% Low energy Meckel's diverticulum History of, sequencing through Dr Casanova, last chromogranin level stable in May of 2012 Microscopic hematuria Midepigastric pain Burning; EGD 2008 Migraine with visual aura Mitral valve regurgitation On Coumadin anticoagulation; last echo in October of 2010 with normal ejection fraction and 2+ mitral regurgitation Polymyalgia rheumatica History of, off prednisone in August of 2010 Positive RYLAND (antinuclear antibody) 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 History of, with recent review by Dr Casanova KARLA (renal artery stenosis) Raynauds syndrome Mild positive RYLAND Rheumatic fever Small bowel obstruction 01/2009 Splenic mass septated cyst; stable and benign per US 2017 Urinary incontinence Urinary tract infection UTI (urinary tract infection) Urosepsis - History of urinary incontinence and previous urinary tract infection with previous hospitalization for urosepsis, currently stable urine and asymptomatic Venous insufficiency Weight loss Mild weight loss 6-1/2 pounds Surgical History History of appendectomy History of arthroplasty 2004 - Right knee History of colonoscopy (12/16/13) Rectal Polyps, Uncomplicated internal hemorrhoids, Diverticulosis. Performed by Dr. Menjiavr History of esophagogastroduodenoscopy (12/18/08) History of hysterectomy for non cancer reason in the distant past History of pelvic surgery 05/2008 - She had surgery for pelvic prolapse History of renal stent History of rotator cuff surgery Both shoulders History of sinus surgery History of tonsillectomy Family History Sister Malignant neoplasm of breast Father Malignant neoplasm of colon Rectal cancer Heart attack Social History Smoking Status: Former smoker Alcohol Intake Frequency: a few times a month Substance Use: does not use Exam Narrative Narrative: Narrative: Constitutional: normally developed, no acute distress . Head: Normocephalic, atraumatic, Eyes: No Icterus, ENT: Bit dry mucus membranes, Neck: Supple, Cardiac: Normal heart sounds, palpable radial pulses, 1+ edema Pulmonary: Normal respiratory effort. Breath sounds clear, no wheeze, rhonchi, rales, Gastrointestinal: Abdomen soft, non-distended, mildly tender in the midepigastrium no rebound no guarding negative Ramirez's Musculoskeletal: No gross deformities, well perfused Skin: warm, dry Neuro: Alert and oriented. General Limitations: no limitations Course Vital Signs Vital signs: Vital Signs Temperature 36.6 C 06/16/21 19:29 Pulse Rate 84 06/16/21 19:29 Respiratory Rate 18 06/16/21 19:29 Blood Pressure 169/64 06/16/21 19:29 Pulse Oximetry (%) 92 06/16/21 19:29 Temperature 36.9 C 06/16/21 23:31 Pulse Rate 58 L 06/17/21 02:02 Respiratory Rate 18 06/17/21 02:02 Blood Pressure 129/39 06/17/21 02:02 Pulse Oximetry (%) 96 06/17/21 02:02 [facility] MDM Narrative Medical decision making narrative: Narrative: Patient with persistent symptoms of mid abdominal pain and nausea worsening over the past day or 2 but ongoing for close to 1 week. Work-up was initiated, was given small fluid bolus initially, will obtain labs CT and urine CBC shows a mild leukocytosis 14 actually downtrending improving from the 13th and no obvious infectious symptoms Electrolytes show marked hyponatremia 118 worsening from previous 129, also hypochloremia 81, baseline creatinine 1.3 LFTs bilirubin within normal lipase normal Urinalysis no infection CAT scan shows no acute pathology of the abdomen pelvis per direct radiology, bilateral pleural effusions consolidation versus atelectasis cardiomegaly. Did add on BNP which was 6000, chest x-ray per my interpretation shows some worsening pleural effusions and vascular congestion compared to previous. Appears to have some volume overload however in the setting of significant hyponatremia I did discuss any potential diuresis with the hospitalist. They would like 20 mg IV Lasix. And have admitted the patient for further management Lab Data Result diagrams: 06/16/21 20:33 06/16/21 20:32 Labs: Lab Results 06/16/21 06/16/21 06/16/21 Range/Units 19:50 20:32 20:33 WBC 14.6 H (4.5-11.0) K/mcL RBC 3.82 (3.59-5.38) M/mcL Hgb 11.3 (11.2-15.7) g/dL Hct 33.1 L (34.1-44.9) % MCV 86.6 (80.0-100.0) fL MCH 29.6 (26.0-34.0) pg MCHC 34.1 (31.0-36.0) g/dL RDW 14.7 H (11.5-14.5) % Plt Count 207 (140-440) K/mcL MPV 10.4 (7.4-10.4) fL Neut % (Auto) 88.0 H (38.0-78.0) % Lymph % (Auto) 6.8 L (15.5-49.0) % [place] % (Auto) 4.3 (1.0-12.0) % Eos % (Auto) 0.5 (0.0-7.0) % Baso % (Auto) 0.4 (0.0-2.0) % Lymph # (Auto) 0.99 L (1.50-4.80) K/mcL [place] # (Auto) 0.63 (0.10-0.90) K/mcL Eos # (Auto) 0.08 (0.00-0.70) K/mcL Baso # (Auto) 0.06 (0.00-0.30) K/mcL Seg Neutrophils % (38-78) % Lymphocytes % (15-49) % Monocytes % (Manual) (1-12) % Eosinophils % (Manual) (0-7) % Absolute Neutrophils 12.88 H (1.80-8.00) K/mcL Platelet Estimate (Normal) RBC Morphology (Normal) Sodium 118 L* (133-145) mmol/L Potassium 4.5 (3.3-5.1) mmol/L Chloride 81 L (96-108) mmol/L Carbon Dioxide 22 (22-30) mmol/L Anion Gap 15.0 (8.0-16.0) BUN 35 H (8-23) mg/dL Creatinine 1.3 H (0.6-1.1) mg/dL POC Creatinine 1.4 H (0.6-1.2) mg/dL GFR Calculation 37 Glucose 108 H (70-105) mg/dL Osmolality (280-300) mOSM/kg Uric Acid (2.5-8.0) mg/dL Calcium 9.6 (8.6-10.4) mg/dL Total Bilirubin 0.8 (0.1-1.0) mg/dL AST 26 (<32) U/L ALT 19 (<40) U/L Alkaline Phosphatase 80 (39-117) U/L C-Reactive Protein (0.03-0.80) mg/dL NT-Pro-B Natriuret Pep (<450.0) pg/mL Total Protein 7.7 (5.9-8.4) gm/dL Albumin 4.0 (3.2-5.2) gm/dL Globulin 3.7 (2.2-3.7) gm/dL Albumin/Globulin Ratio 1.1 (1.0-2.3) Lipase 29 (7-60) U/L Procalcitonin (<0.10) ng/mL TSH (0.27-5.01) uIU/mL Urine Color Straw Urine Appearance Clear (Clear) Urine pH 5.0 (5.0-9.0) Ur Specific [place] 1.004 (1.000-1.035) Urine Protein Negative (Negative) mg/dL Urine Glucose (UA) Negative (Negative) mg/dL Urine Ketones Negative (Negative) mg/dL Urine Occult Blood Negative (Negative) mg/dL Urine Nitrate Negative (Negative) Urine Bilirubin Negative (Negative) mg/dL Urine Urobilinogen Negative mg/dL Ur Leukocyte Esterase Negative (Negative) /uL Urine RBC 1 (0-3) /hpf Urine WBC < 1 (0-4) /hpf Ur Squamous Epith Cells < 1 (0-4) /hpf Urine Bacteria None (0) /hpf Ur Culture Indicated? No Urine Osmolality (80-1000) mOSM/kg Ur Random Sodium mmol/L Ur Strep pneumoniae Ag (Negative) 06/16/21 06/16/21 06/16/21 Range/Units 22:00 22:07 22:07 WBC (4.5-11.0) K/mcL RBC (3.59-5.38) M/mcL Hgb (11.2-15.7) g/dL Hct (34.1-44.9) % MCV (80.0-100.0) fL MCH (26.0-34.0) pg MCHC (31.0-36.0) g/dL RDW (11.5-14.5) % Plt Count (140-440) K/mcL MPV (7.4-10.4) fL Neut % (Auto) (38.0-78.0) % Lymph % (Auto) (15.5-49.0) % [place] % (Auto) (1.0-12.0) % Eos % (Auto) (0.0-7.0) % Baso % (Auto) (0.0-2.0) % Lymph # (Auto) (1.50-4.80) K/mcL [place] # (Auto) (0.10-0.90) K/mcL Eos # (Auto) (0.00-0.70) K/mcL Baso # (Auto) (0.00-0.30) K/mcL Seg Neutrophils % (38-78) % Lymphocytes % (15-49) % Monocytes % (Manual) (1-12) % Eosinophils % (Manual) (0-7) % Absolute Neutrophils (1.80-8.00) K/mcL Platelet Estimate (Normal) RBC Morphology (Normal) Sodium (133-145) mmol/L Potassium (3.3-5.1) mmol/L Chloride (96-108) mmol/L Carbon Dioxide (22-30) mmol/L Anion Gap (8.0-16.0) BUN (8-23) mg/dL Creatinine (0.6-1.1) mg/dL POC Creatinine (0.6-1.2) mg/dL GFR Calculation Glucose (70-105) mg/dL Osmolality 260 L (280-300) mOSM/kg Uric Acid (2.5-8.0) mg/dL Calcium (8.6-10.4) mg/dL Total Bilirubin (0.1-1.0) mg/dL AST (<32) U/L ALT (<40) U/L Alkaline Phosphatase (39-117) U/L C-Reactive Protein (0.03-0.80) mg/dL NT-Pro-B Natriuret Pep 6373.0 H (<450.0) pg/mL Total Protein (5.9-8.4) gm/dL Albumin (3.2-5.2) gm/dL Globulin (2.2-3.7) gm/dL Albumin/Globulin Ratio (1.0-2.3) Lipase (7-60) U/L Procalcitonin (<0.10) ng/mL TSH 4.38 (0.27-5.01) uIU/mL Urine Color Urine Appearance (Clear) Urine pH (5.0-9.0) Ur Specific [place] (1.000-1.035) Urine Protein (Negative) mg/dL Urine Glucose (UA) (Negative) mg/dL Urine Ketones (Negative) mg/dL Urine Occult Blood (Negative) mg/dL Urine Nitrate (Negative) Urine Bilirubin (Negative) mg/dL Urine Urobilinogen mg/dL Ur Leukocyte Esterase (Negative) /uL Urine RBC (0-3) /hpf Urine WBC (0-4) /hpf Ur Squamous Epith Cells (0-4) /hpf Urine Bacteria (0) /hpf Ur Culture Indicated? Urine Osmolality 245 (80-1000) mOSM/kg Ur Random Sodium 70 mmol/L Ur Strep pneumoniae Ag (Negative) 06/16/21 06/16/21 06/16/21 Range/Units 22:20 22:31 22:31 WBC (4.5-11.0) K/mcL RBC (3.59-5.38) M/mcL Hgb (11.2-15.7) g/dL Hct (34.1-44.9) % MCV (80.0-100.0) fL MCH (26.0-34.0) pg MCHC (31.0-36.0) g/dL RDW (11.5-14.5) % Plt Count (140-440) K/mcL MPV (7.4-10.4) fL Neut % (Auto) (38.0-78.0) % Lymph % (Auto) (15.5-49.0) % [place] % (Auto) (1.0-12.0) % Eos % (Auto) (0.0-7.0) % Baso % (Auto) (0.0-2.0) % Lymph # (Auto) (1.50-4.80) K/mcL [place] # (Auto) (0.10-0.90) K/mcL Eos # (Auto) (0.00-0.70) K/mcL Baso # (Auto) (0.00-0.30) K/mcL Seg Neutrophils % (38-78) % Lymphocytes % (15-49) % Monocytes % (Manual) (1-12) % Eosinophils % (Manual) (0-7) % Absolute Neutrophils (1.80-8.00) K/mcL Platelet Estimate (Normal) RBC Morphology (Normal) Sodium (133-145) mmol/L Potassium (3.3-5.1) mmol/L Chloride (96-108) mmol/L Carbon Dioxide (22-30) mmol/L Anion Gap (8.0-16.0) BUN (8-23) mg/dL Creatinine (0.6-1.1) mg/dL POC Creatinine (0.6-1.2) mg/dL GFR Calculation Glucose (70-105) mg/dL Osmolality (280-300) mOSM/kg Uric Acid 6.9 (2.5-8.0) mg/dL Calcium (8.6-10.4) mg/dL Total Bilirubin (0.1-1.0) mg/dL AST (<32) U/L ALT (<40) U/L Alkaline Phosphatase (39-117) U/L C-Reactive Protein 8.20 H (0.03-0.80) mg/dL NT-Pro-B Natriuret Pep (<450.0) pg/mL Total Protein (5.9-8.4) gm/dL Albumin (3.2-5.2) gm/dL Globulin (2.2-3.7) gm/dL Albumin/Globulin Ratio (1.0-2.3) Lipase (7-60) U/L Procalcitonin 3.47 H (<0.10) ng/mL TSH (0.27-5.01) uIU/mL Urine Color Urine Appearance (Clear) Urine pH (5.0-9.0) Ur Specific [place] (1.000-1.035) Urine Protein (Negative) mg/dL Urine Glucose (UA) (Negative) mg/dL Urine Ketones (Negative) mg/dL Urine Occult Blood (Negative) mg/dL Urine Nitrate (Negative) Urine Bilirubin (Negative) mg/dL Urine Urobilinogen mg/dL Ur Leukocyte Esterase (Negative) /uL Urine RBC (0-3) /hpf Urine WBC (0-4) /hpf Ur Squamous Epith Cells (0-4) /hpf Urine Bacteria (0) /hpf Ur Culture Indicated? Urine Osmolality (80-1000) mOSM/kg Ur Random Sodium mmol/L Ur Strep pneumoniae Ag (Negative) 06/16/21 06/16/21 Range/Units 22:31 22:31 WBC (4.5-11.0) K/mcL RBC (3.59-5.38) M/mcL Hgb (11.2-15.7) g/dL Hct (34.1-44.9) % MCV (80.0-100.0) fL MCH (26.0-34.0) pg MCHC (31.0-36.0) g/dL RDW (11.5-14.5) % Plt Count (140-440) K/mcL MPV (7.4-10.4) fL Neut % (Auto) (38.0-78.0) % Lymph % (Auto) (15.5-49.0) % [place] % (Auto) (1.0-12.0) % Eos % (Auto) (0.0-7.0) % Baso % (Auto) (0.0-2.0) % Lymph # (Auto) (1.50-4.80) K/mcL [place] # (Auto) (0.10-0.90) K/mcL Eos # (Auto) (0.00-0.70) K/mcL Baso # (Auto) (0.00-0.30) K/mcL Seg Neutrophils % 89 H (38-78) % Lymphocytes % 7 L (15-49) % Monocytes % (Manual) 3 (1-12) % Eosinophils % (Manual) 1 (0-7) % Absolute Neutrophils (1.80-8.00) K/mcL Platelet Estimate Normal (Normal) RBC Morphology Normal (Normal) Sodium (133-145) mmol/L Potassium (3.3-5.1) mmol/L Chloride (96-108) mmol/L Carbon Dioxide (22-30) mmol/L Anion Gap (8.0-16.0) BUN (8-23) mg/dL Creatinine (0.6-1.1) mg/dL POC Creatinine (0.6-1.2) mg/dL GFR Calculation Glucose (70-105) mg/dL Osmolality (280-300) mOSM/kg Uric Acid (2.5-8.0) mg/dL Calcium (8.6-10.4) mg/dL Total Bilirubin (0.1-1.0) mg/dL AST (<32) U/L ALT (<40) U/L Alkaline Phosphatase (39-117) U/L C-Reactive Protein (0.03-0.80) mg/dL NT-Pro-B Natriuret Pep (<450.0) pg/mL Total Protein (5.9-8.4) gm/dL Albumin (3.2-5.2) gm/dL Globulin (2.2-3.7) gm/dL Albumin/Globulin Ratio (1.0-2.3) Lipase (7-60) U/L Procalcitonin (<0.10) ng/mL TSH (0.27-5.01) uIU/mL Urine Color Urine Appearance (Clear) Urine pH (5.0-9.0) Ur Specific [place] (1.000-1.035) Urine Protein (Negative) mg/dL Urine Glucose (UA) (Negative) mg/dL Urine Ketones (Negative) mg/dL Urine Occult Blood (Negative) mg/dL Urine Nitrate (Negative) Urine Bilirubin (Negative) mg/dL Urine Urobilinogen mg/dL Ur Leukocyte Esterase (Negative) /uL Urine RBC (0-3) /hpf Urine WBC (0-4) /hpf Ur Squamous Epith Cells (0-4) /hpf Urine Bacteria (0) /hpf Ur Culture Indicated? Urine Osmolality (80-1000) mOSM/kg Ur Random Sodium mmol/L Ur Strep pneumoniae Ag Negative (Negative) ED POC Tests ED POC Tests: NEAL - Influenza A Negative NEAL - Influenza B Negative NEAL - SARS Antigen Negative Discharge Plan Patient/Caregiver Discharge Instructions Pt seen by GRINDING ROOM SUPERVISOR/PA only: No Clinical Impression: Acute hyponatremia, Abdominal pain Patient Disposition: Xfer As Inpt ([facility]) Condition: Serious Discharge Date/Time: 06/16/21 23:37
[2021-06-16] MEDS ORDERED: ONDANSETRON 4 MG/2 ML VIAL IV ONE (20:03)
[2021-06-16 20:41] LABS: POC Creatinine 1.4 mg/dL (0.6-1.2)
[2021-06-16 21:15] LABS: Basophils # (Auto) 0.06 K/mcL (0.00-0.30); Basophils % (Auto) 0.4 % (0.0-2.0); Eosinophils # (Auto) 0.08 K/mcL (0.00-0.70); Eosinophils % (Auto) 0.5 % (0.0-7.0); Hematocrit 33.1 % (34.1-44.9); Hemoglobin 11.3 g/dL (11.2-15.7); Lymphocytes # (Auto) 0.99 K/mcL (1.50-4.80); Lymphocytes % (Auto) 6.8 % (15.5-49.0); Mean Cell Volume 86.6 fL (80.0-100.0); Mean Corpuscular HGB Conc 34.1 g/dL (31.0-36.0); Mean Platelet Volume 10.4 fL (7.4-10.4); Monocytes # (Auto) 0.63 K/mcL (0.10-0.90); Monocytes % (Auto) 4.3 % (1.0-12.0); Platelet Count 207 K/mcL (140-440); RBC 3.82 M/mcL (3.59-5.38); Red Cell Distribution Width 14.7 % (11.5-14.5); WBC 14.6 K/mcL (4.5-11.0)
[2021-06-16 21:19] LABS: Appearance,Urine CLEAR (Clear); Bilirubin,Urine Negative (Negative); Color,Urine STRAW; Culture Indicated,Urine No; Glucose,Urine (UA) Negative (Negative); Ketones,Urine Negative (Negative); Leukocyte Esterase,Urine Negative /uL (Negative); Nitrate,Urine Negative (Negative); Protein,Urine Negative (Negative); Specific Gravity,Urine 1.004 (1.000-1.035); Urine Blood Negative (Negative); Urine RBC 1 /hpf (0-3); Urine Squamous Epithelial Cell < 1 /hpf (0-4); Urine WBC < 1 /hpf (0-4); Urobilinogen,Urine Negative
[2021-06-16 21:47] LABS: ALT/SGPT 19 U/L (<40); AST/SGOT 26 U/L (<32); Albumin/Globulin Ratio 1.1 (1.0-2.3); Alkaline Phosphatase 80 U/L (39-117); Bilirubin,Total 0.8 mg/dL (0.1-1.0); Blood Urea Nitrogen 35 mg/dL (8-23); Calcium 9.6 mg/dL (8.6-10.4); Carbon Dioxide 22 mmol/L (22-30); Chloride 81 mmol/L (96-108); Globulin 3.7 gm/dL (2.2-3.7); Glomerular Filtration Rate 37; Glucose 108 mg/dL (70-105)
--- NOTE | 2021-06-16 22:17 | Internal Med History&Physical ---
HPI History of Present Illness Patient information: Note initiated : 06/16/21 at 10:15 pm Service Date, if different from initiated Date: [] Patient: Lionel Knapp 86 y/o F admitted on for abdominal pain. Chief Complaint: [] History of present illness: Ms. Knapp is a 86 year old F Presents the ED with a abdominal pain describes an upset stomach and nausea and generalized weakness. She was diagnosed with a UTI last or Monday. And it seems that since that time she has had increased nausea and weakness. She was prescribed Macrobid on the fourth by urgent care provider. 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 She was also noted to be mildly hypoxic and her family member feels she is had a postnasal drip cough and states she breathes a little bit differently lately. Although she does not complain of shortness of breath. She does complain of upset stomach and the nausea nothing else really. No change in her bowels. No vomiting. Denies any recent medication changes other than the antibiotic recently started. Review of Systems: Pertinent positives as above. Denies headache/fever/chills/vomiting/chest or abdominal pain/dyspnea/diarrhea. Remaining 10 point review of system reviewed negative PFSH PFSH All Active Problems (Updated 06/12/21 @ 16:32 by Jasson Arce MD) Generalized weakness (Acute) Hyponatremia (Acute) Dehydration (Acute) Urinary tract infection (Acute) Low energy (Acute) Bilateral lower extremity edema (Acute) Back pain (Acute) Venous insufficiency (Acute) Hyponatremia (Chronic) Dysuria (Acute) Dysuria (Acute) Chronic kidney disease (CKD) stage G3b/A2, moderately decreased glomerular filtration rate (GFR) between 30-44 mL/min/1.73 square meter and albuminuria creatinine ratio between 30-299 mg/g (Chronic) Cystitis (Acute) Parathyroid related hypercalcemia (Chronic) Hyperparathyroidism (Chronic) Chronic pruritus (Acute) Atopic dermatitis (Acute) History of sinus surgery (Chronic) History of renal stent (Chronic) History of common carotid artery stent placement (Chronic) History of tonsillectomy (Chronic) History of appendectomy (Chronic) History of rotator cuff surgery (Chronic) Rheumatic fever (Chronic) Kidney failure (Chronic) Joint pain (Chronic) Hypercholesterolemia (Chronic) Daytime sleepiness (Chronic) Blood disorder (Chronic) Arthritis (Chronic) Closed left clavicular fracture (Acute) Guaiac positive stools (Acute) Hematoma (Acute) Anticoagulant long-term use (Chronic 10/30/13) Atrial fibrillation (Chronic ~1998) Hypertension (Chronic) Benign hypertension with CKD (chronic kidney disease) stage III (Chronic) History of stent insertion of renal artery (Chronic) Carotid stenosis (Chronic) Postgastric surgery syndrome (Chronic) Microscopic hematuria (Chronic) Weight loss (Chronic) Urinary incontinence (Chronic) Primary small intestine carcinoid tumor (Chronic) Raynauds syndrome (Chronic) Positive RYLAND (antinuclear antibody) (Chronic) Polymyalgia rheumatica (Chronic) Mitral valve regurgitation (Chronic) Meckel's diverticulum (Chronic) Hyperlipidemia (Chronic) Esophagitis (Chronic) Degenerative arthritis (Chronic) Colon polyps (Chronic 11/27/08) Back pain (Chronic) Medical History Anticoagulant long-term use (10/30/13) Arthritis Atrial fibrillation (~1998) Chronic with mitral regurgitation. Coumadin Back pain Back pain Benign hypertension with CKD (chronic kidney disease) stage III Biceps muscle tear Bilateral lower extremity edema Blood disorder Blood thinner Carotid stenosis Chronic pruritus Colon polyps (11/27/08) Hyperplastic Daytime sleepiness Degenerative arthritis Multi joint Dysphagia Slight, on a background of history of esophagitis and Saba's, EGD 2008 Dysuria Dysuria Esophagitis History of, EGD in 11/2008 Fibrocystic disease of breast Mammogram done 09/24/12 History of common carotid artery stent placement History of stent insertion of renal artery Hypercholesterolemia Hyperlipidemia Improved with diet treatment; multiple medicine intolerances Hypertension Hypovitaminosis D Joint pain Kidney failure one is gone; one at 27% Low energy Meckel's diverticulum History of, sequencing through Dr Casanova, last chromogranin level stable in May of 2012 Microscopic hematuria Midepigastric pain Burning; EGD 2008 Migraine with visual aura Mitral valve regurgitation On Coumadin anticoagulation; last echo in October of 2010 with normal ejection fraction and 2+ mitral regurgitation Polymyalgia rheumatica History of, off prednisone in August of 2010 Positive RYLAND (antinuclear antibody) 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 History of, with recent review by Dr Casanova KARLA (renal artery stenosis) Raynauds syndrome Mild positive RYLAND Rheumatic fever Small bowel obstruction 01/2009 Splenic mass septated cyst; stable and benign per US 2017 Urinary incontinence Urinary tract infection UTI (urinary tract infection) Urosepsis - History of urinary incontinence and previous urinary tract infection with previous hospitalization for urosepsis, currently stable urine and asymptomatic Venous insufficiency Weight loss Mild weight loss 6-1/2 pounds Surgical History History of appendectomy History of arthroplasty 2004 - Right knee History of colonoscopy (12/16/13) Rectal Polyps, Uncomplicated internal hemorrhoids, Diverticulosis. Performed by Dr. Menjivar History of esophagogastroduodenoscopy (12/18/08) History of hysterectomy for non cancer reason in the distant past History of pelvic surgery 05/2008 - She had surgery for pelvic prolapse History of renal stent History of rotator cuff surgery Both shoulders History of sinus surgery History of tonsillectomy Family History Sister Malignant neoplasm of breast Father Malignant neoplasm of colon Rectal cancer Heart attack Social History marital status: occupational status: retired smoking status: Former smoker quit date: 09/02/1962 pack-years: 5 alcohol intake frequency: a few times a month substance use type: does not use MEDS/ALLERGIES Home Medications and Allergies Home Medications Medication Instructions Recorded Confirmed Type multivitamin 1 tab PO QDAY tab 02/03/15 06/03/21 History glucosamine HCl 1,500 mg tablet 1,500 mg PO QDAY 07/20/17 06/03/21 History flaxseed oil 1,000 mg capsule 1,000 mg PO QDAY 11/16/17 06/03/21 History apixaban 5 mg tablet (Eliquis) 5 mg PO BID 12/26/18 06/03/21 History diltiazem HCl 360 mg 360 mg PO QDAY #90 cap 05/26/20 06/03/21 Rx capsule,extended release 24 hr fexofenadine 180 mg tablet 180 mg PO QDAY 09/04/20 06/03/21 History (Radha Allergy) B/L knee high compression garments #1 ea 12/31/20 06/03/21 Rx (15-20 mmHg) lidocaine 5 % topical patch 1 patch TOPICAL QDAY #15 ea 12/31/20 06/03/21 Rx valsartan 160 mg tablet 160 mg PO QDAY #90 tab 01/28/21 06/03/21 Rx torsemide 10 mg tablet 10 mg PO QDAY #90 tab 03/18/21 06/03/21 Rx hydralazine 25 mg tablet 25 mg PO TID #270 tab 03/30/21 06/03/21 Rx rosuvastatin 5 mg tablet 5 mg PO QDAY #90 tab 03/30/21 06/03/21 Rx Allergies Allergy/AdvReac Type Severity Reaction Status Date / Time Cisapride [From Propulsid] Allergy Mild Diarrhea Verified 06/03/21 11:03 ezetimibe [From Zetia] Allergy Mild Diarrhea Verified 06/03/21 11:03 loratadine [From Claritin] Allergy Mild "Funny Verified 06/03/21 11:03 feeling" ciprofloxacin [From Cipro] AdvReac Intermediate Delerium Verified 06/03/21 11:03 MRI (stent) AdvReac Severe Other Uncoded 02/04/21 11:00 EXAM Constitutional Vitals: Temp Pulse Resp BP Pulse Ox 97.8 F 71 18 154/61 86 L 06/16/21 19:29 06/16/21 21:54 06/16/21 19:29 06/16/21 21:31 06/16/21 21:54 Exam: General: Alert, Awake, No acute Distress Eyes/N/T: EOMI, PERRL, dry MM Head/Neck: neck supple, normocephalic atraumatic CV: irreg irreg, No murmurs, normal s1/s2 Pulm: Clear b/l, no wheezing/rhonchi/rales Abd: soft, nontender, +BS x4 Ext: no clubbing/cyanosis, 1-2+ b/l LE edema Neuro: Alert, no focal deficits, moves all extremities, CN 2-12 grossly intact, symmetrical strength b/l upper/lower, sensations intact b/l upper/lower Skin: warm/dry DATA Data Completed and Pending Labs: Labs from last 24 hours 06/16/21 06/16/21 06/16/21 22:07 22:07 22:00 WBC RBC Hgb Hct MCV MCH MCHC RDW Plt Count MPV Neut % (Auto) Lymph % (Auto) Sheridan % (Auto) Eos % (Auto) Baso % (Auto) Lymph # (Auto) [place] # (Auto) Eos # (Auto) Baso # (Auto) Absolute Neutrophils Sodium Potassium Chloride Carbon Dioxide Anion Gap BUN Creatinine POC Creatinine GFR Calculation Glucose Osmolality Pending Calcium Total Bilirubin AST ALT Alkaline Phosphatase NT-Pro-B Natriuret Pep Pending Total Protein Albumin Globulin Albumin/Globulin Ratio Lipase TSH Pending Urine Color Urine Appearance Urine pH Ur Specific [place] Urine Protein Urine Glucose (UA) Urine Ketones Urine Occult Blood Urine Nitrate Urine Bilirubin Urine Urobilinogen Ur Leukocyte Esterase Urine RBC Urine WBC Ur Squamous Epith Cells Urine Bacteria Ur Culture Indicated? Urine Osmolality Pending Ur Random Sodium Pending 06/16/21 06/16/21 06/16/21 20:33 20:32 19:50 WBC 14.6 H RBC 3.82 Hgb 11.3 Hct 33.1 L MCV 86.6 MCH 29.6 MCHC 34.1 RDW 14.7 H Plt Count 207 MPV 10.4 Neut % (Auto) 88.0 H Lymph % (Auto) 6.8 L Sher[place] % (Auto) 4.3 Eos % (Auto) 0.5 Baso % (Auto) 0.4 Lymph # (Auto) 0.99 L Sher[place] # (Auto) 0.63 Eos # (Auto) 0.08 Baso # (Auto) 0.06 Absolute Neutrophils 12.88 H Sodium 118 L* Potassium 4.5 Chloride 81 L Carbon Dioxide 22 Anion Gap 15.0 BUN 35 H Creatinine 1.3 H POC Creatinine 1.4 H GFR Calculation 37 Glucose 108 H Osmolality Calcium 9.6 Total Bilirubin 0.8 AST 26 ALT 19 Alkaline Phosphatase 80 NT-Pro-B Natriuret Pep Total Protein 7.7 Albumin 4.0 Globulin 3.7 Albumin/Globulin Ratio 1.1 Lipase 29 TSH Urine Color Straw Urine Appearance Clear Urine pH 5.0 Ur Specific [place] 1.004 Urine Protein Negative Urine Glucose (UA) Negative Urine Ketones Negative Urine Occult Blood Negative Urine Nitrate Negative Urine Bilirubin Negative Urine Urobilinogen Negative Ur Leukocyte Esterase Negative Urine RBC 1 Urine WBC < 1 Ur Squamous Epith Cells < 1 Urine Bacteria None Ur Culture Indicated? 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 *h/o CEA and KARLA: was on Plavix in past, has followed with Dr. Pack *CKD III: Follows with Dr. Black *HTN: on hydralazine/torsemide/ARB * P: -await hyponatremia w/u before anymore ivf's -serial Na -Antiemetics -CXR, rvp/crp/strep -Continue home diltiazem/ARB/statin -Medication reconciliation -PT/OT -ppx: eliquis DNR Time Spent With Patient Time: Total time spent is greater than 50% in coordination of care (as documented) at patient's floor/unit and/or counseling patient:
[2021-06-16 22:45] LABS: Thyroid Stimulating Hormone 4.38 uIU/mL (0.27-5.01)
[2021-06-16] MEDS ORDERED: FUROSEMIDE 20 MG/2 ML VIAL IV ONE ×2 (23:03→23:46)
[2021-06-16 23:16] LABS: Osmolality,Urine 245 mOSM/kg (80-1000)
[2021-06-16 23:25] LABS: Eosinophils % (Manual) 1 % (0-7); Lymphocytes % 7 % (15-49); Monocytes % (Manual) 3 % (1-12); Platelet Estimate NORMAL (Normal); RBC Morphology NORMAL (Normal); Segmented Neutrophils % 89 % (38-78)
[2021-06-16] MEDS ORDERED: ONDANSETRON 4 MG/2 ML VIAL IV PRN (23:46)
[2021-06-16] MEDS ORDERED: POLYETHYLENE GLYCOL 3350 17 GM PACKET PO PRN (23:46)
[2021-06-16] MEDS ORDERED: MAGNESIUM SULFATE 2 GM/50 ML BAG IV PRN (23:46)
[2021-06-16] MEDS ORDERED: LABETALOL 5 MG/ML ML IV PRN (23:46)
[2021-06-16] MEDS ORDERED: METOCLOPRAMIDE 10 MG/2 ML VIAL IV PRN (23:46)
[2021-06-16] MEDS ORDERED: ACETAMINOPHEN 325 MG TABLET PO PRN (23:46)
[2021-06-16] MEDS ORDERED: IPRATROPIUM/ALBUTEROL 3 ML AMPUL.NEB NEB PRN (23:46)
[2021-06-16] MEDS ORDERED: POTASSIUM CHLORIDE 40 MEQ in DEXTROSE 5% IN WATER 500 ML IV PRN (23:46)
[2021-06-16] MEDS ORDERED: SENNOSIDES 1 TABLET PO PRN (23:46)
[2021-06-16] MEDS ORDERED: PROMETHAZINE 25 MG/ML VIAL IV PRN (23:46)
[2021-06-16] MEDS ORDERED: POTASSIUM CHLORIDE 20 MEQ TABLET PO PRN ×2 (23:46)
[2021-06-17] MEDS ORDERED: LABETALOL 5 MG/ML ML IV ONE (00:33)
[2021-06-17] MEDS: cefTRIAXone 2 GM in DEXTROSE 5% IN WATER 50 ML IV SCH ×2 (01:26→16:26)
[2021-06-17] MEDS: AZITHROMYCIN 500 MG in DEXTROSE 5% IN WATER 250 ML IV SCH ×2 (02:15→17:02)
[2021-06-17 02:33] LABS: Sodium, Urine Random 70 mmol/L
--- NOTE | 2021-06-17 03:32 | XRay Report ---
CLINICAL INFORMATION: hypoxia COMPARISON: 06/12/2021 FINDINGS: Marked cardiomegaly has increased slightly. Mediastinum is unremarkable. Pulmonary vessels are moderately congested with moderate peribronchovascular edema throughout both lungs. Small bilateral pleural effusions noted. Moderate bibasilar airspace disease has also developed. IMPRESSION: Moderate CHF-progressing Moderate bibasilar infiltrates-new. Aspiration versus infection Interpreted and Authenticated by: Jarrod Shukla 06/17/21
[2021-06-17] MEDS: 0.9 % SODIUM CHLORIDE 10 ML SYRINGE IV SCH ×3 (04:27→21:13)
--- NOTE | 2021-06-17 04:50 | Cat Scan Report ---
CLINICAL INFORMATION: Mid abdominal pain. COMPARISON: Abdomen and pelvic CT 05/05/2016 TECHNIQUE: 0.625 mm helical slices were obtained from the mid heart through the subtrochanteric regions. Following reconstruction, 2.5 mm sagittal, coronal and axial reformatted images were processed and reviewed at bone and soft tissue windows.The exam was performed using radiation dose optimization techniques including, but not limited to, automated exposure control, adjustment of the mA and/or kV according to patient size and use of iterative reconstruction technique. FINDINGS: The lung bases show moderate patchy airspace disease posterior inferiorly in the lower lobes which likely reflects subsegmental atelectasis. Moderate right and small left pleural effusions due to CHF appreciated. The heart is markedly enlarged with mitral annular calcification and scattered calcification in the visualized coronary arteries. Abdominal images show the noncontrasted gallbladder and bile ducts, liver, adrenal glands, spleen, pancreas and aorta are normal in size, configuration and attenuation without focal lesion. There is no free air, free fluid or adenopathy. Marked atrophy of the right kidney appreciated: length 6 cm. There is compensatory hypertrophy of the left kidney which is 10.2 cm in length. A 14 mm well-circumscribed hyperattenuating lesion anterior cortex of the right kidney measures 91 Hounsfield units findings patible with a hyperdense cyst. Shows a slow size increase since the prior CT five years ago. It was 9 mm at that time. Pelvic images show normal noncontrasted urinary bladder. Uterus and both ovaries are surgically absent. Sigmoid diverticulosis noted but no CT evidence for diverticulitis. The remainder of the large bowel is normal. Appendix not identified and may be surgically absent. Small right inguinal hernia contains in very short segment of small bowel at the inguinal ring.. No evidence of bowel obstruction or incarceration. Small bowel and stomach are otherwise grossly normal. Bone windows show severe degeneration in the lumbar spine IMPRESSION: 1. Small right inguinal hernia containing the inferior wall of a small segment of small bowel there is no evidence of incarceration or bowel obstruction. 2. Marked cardiomegaly with moderate right and small left pleural effusions compatible with moderate CHF. The patient may have congestive hepatopathy as a cause for abdominal pain. Please correlate with right upper quadrant associated with elevated LFTs. 3. Sigmoid diverticulosis, but no evidence of diverticulitis. 4. Severe atrophy right kidney with compensatory hypertrophy of the left kidney. No change. 5. 14 mm hyperdense cyst in the mid left kidney which shows very slow increase prior CT over five years prior. Interpreted and Authenticated by: Jarrod Shukla 06/17/21
[2021-06-17 05:15] LABS: POC Blood Urea Nitrogen 30 mg/dL (6-20); POC CO2 27 mmol/L (22-30); POC Chloride 85 mEq/L (96-108); POC Creatinine 1.4 mg/dL (0.6-1.2); POC Glucose, Random 100 mg/dL (70-105); POC Hematocrit 31 % (36-48); POC Potassium 4.2 mEql/L (3.3-5.1); POC Sodium 122 mEq/L (133-145)
[2021-06-17 07:18] LABS: Hematocrit 29.1 % (34.1-44.9); Hemoglobin 9.9 g/dL (11.2-15.7); Mean Cell Volume 86.1 fL (80.0-100.0); Mean Platelet Volume 10.3 fL (7.4-10.4); Platelet Count 182 K/mcL (140-440); RBC 3.38 M/mcL (3.59-5.38); Red Cell Distribution Width 14.6 % (11.5-14.5); WBC 8.3 K/mcL (4.5-11.0)
--- NOTE | 2021-06-17 07:48 | Internal Med Progress Note ---
SUBJECTIVE Subjective Patient information: Note initiated : 06/17/21 at 7:39 am Service Date, if different from initiated Date: [] Patient: Lionel Knapp 86 y/o F admitted on 06/16/21 for abdominal pain. Chief Complaint: [] Interval history: History of present illness: Ms. Knapp is a 86 year old F Presents the ED with a abdominal pain describes an upset stomach and nausea and generalized weakness. She was diagnosed with a UTI last or Monday. And it seems that since that time she has had increased nausea and weakness. She was prescribed Macrobid on the fourth by urgent care provider. 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 She was also noted to be mildly hypoxic and her family member feels she is had a postnasal drip cough and states she breathes a little bit differently lately. Although she does not complain of shortness of breath. She does complain of upset stomach and the nausea nothing else really. No change in her bowels. No vomiting. Denies any recent medication changes other than the antibiotic recently started. 06/17 No overnight event or new complaints. Nausea improving. On minimal oxygen requirement. Sodium slowly coming up as expected slowly. Mild cough and denies shortness of breath Review of Systems: denies headache/fever/chills/vomiting/chest or abdominal pain/diarrhea. Otherwise see above. Constitutional Vitals: Vital Signs Temp Pulse Resp BP Pulse Ox 98.2 F 91 H 24 H 110/55 93 06/17/21 04:02 06/17/21 06:03 06/17/21 06:03 06/17/21 06:03 06/17/21 06:03 Period Temp Pulse Resp BP Sys/Mcintosh Pulse Ox Last 24 Hr 97.8 F-98.4 F 44-113 16-24 109-174/38-73 86-97 Intake and Output 06/16/21 06/17/21 06/17/21 21:59 05:59 13:59 Intake Total 800 Output Total 1150 200 Balance -350 -200 Weight 56.699 kg 58.769 kg Intake & Output: Intake & Output 06/16/21 06/17/21 06/17/21 21:59 05:59 13:59 Intake Total 800 Output Total 1150 200 Balance -350 -200 Weight 56.699 kg 58.769 kg Intake: IV 800 Sodium Chloride 0.9% 500 ml @ 500 Wide Open IV BOLUS ONE Rx#: [id number] Zithromax 500 mg In Dextrose 5% 250 in Water 250 ml @ 250 mls/hr IV Q24H [facility] Rx#:[id number] Rocephin 2 gm In Dextrose 5% in 50 Water 50 ml @ 100 mls/hr IV Q24H [facility] Rx#:[id number] Output: Void Amount 1150 200 Other: Urine Appearance Clear Clear Urine Color Pale Bright Yellow Urine Odor Strong Exam: General: Alert, Awake, No acute Distress Eyes/N/T: EOMI, Head/Neck: neck supple, CV: irreg irreg, No murmurs, Pulm: Clear b/l, no wheezing/rhonchi/rales Abd: soft, nontender, +BS x4 Ext: no clubbing/cyanosis, 1+ b/l LE edema improved Neuro: Alert, no focal deficits, moves all extremities, Skin: warm/dry OBJ DATA Labs CBC & Chem 7: 06/17/21 05:08 06/17/21 05:07 Labs: Abnormal Lab Results 06/17/21 06/17/21 06/16/21 05:08 05:07 22:31 WBC RBC 3.38 L Hgb 9.9 L Hct 29.1 L POC Hct 31 L RDW 14.6 H Neut % (Auto) Lymph % (Auto) Lymph # (Auto) Seg Neutrophils % 89 H Lymphocytes % 7 L Absolute Neutrophils POC Sodium 122 L Sodium POC Chloride 85 L Chloride POC BUN 30 H BUN Creatinine POC Creatinine 1.4 H Glucose Osmolality C-Reactive Protein NT-Pro-B Natriuret Pep Procalcitonin 06/16/21 06/16/21 06/16/21 22:31 22:31 22:07 WBC RBC Hgb Hct POC Hct RDW Neut % (Auto) Lymph % (Auto) Lymph # (Auto) Seg Neutrophils % Lymphocytes % Absolute Neutrophils POC Sodium Sodium POC Chloride Chloride POC BUN BUN Creatinine POC Creatinine Glucose Osmolality 260 L C-Reactive Protein 8.20 H NT-Pro-B Natriuret Pep Procalcitonin 3.47 H 06/16/21 06/16/21 06/16/21 22:00 20:33 20:32 WBC 14.6 H RBC Hgb Hct 33.1 L POC Hct RDW 14.7 H Neut % (Auto) 88.0 H Lymph % (Auto) 6.8 L Lymph # (Auto) 0.99 L Seg Neutrophils % Lymphocytes % Absolute Neutrophils 12.88 H POC Sodium Sodium 118 L* POC Chloride Chloride 81 L POC BUN BUN 35 H Creatinine 1.3 H POC Creatinine 1.4 H Glucose 108 H Osmolality C-Reactive Protein NT-Pro-B Natriuret Pep 6373.0 H Procalcitonin Meds: Medications Acetaminophen (Acetaminophen 325 Mg Tablet) 650 mg PO Q6HP PRN; Protocol PRN Reason: Per Pain Protocol/Fever > 101 Albuterol/Ipratropium (Ipratropium/Albuterol 3 Ml Ampul.Neb) 3 ml NEB Q4HP PRN PRN Reason: Shortness Of Breath Docusate Sodium (Docusate Sodium 100 Mg Capsule) 100 mg PO BID WILBER Potassium Chloride 40 meq/ (Dextrose) 520 mls @ 130 mls/hr IV UD PRN PRN Reason: Potassium < 3 Magnesium Sulfate (Magnesium Sulfate) 2 gm in 50 mls @ 50 mls/hr IV UD PRN PRN Reason: Magnesium </= 1.6 Ceftriaxone Sodium 2 gm/ (Dextrose) 50 mls @ 100 mls/hr IV Q24H [facility]; Protocol Last Infusion: 06/17/21 02:16 Dose: Infused Documented by: Azithromycin 500 mg/ Dextrose 250 mls @ 250 mls/hr IV Q24H [facility]; Protocol Stop: 06/19/21 00:45 Last Infusion: 06/17/21 03:23 Dose: Infused Documented by: Labetalol HCl (Labetalol 5 Mg/Ml Ml) 0 mg IV Q2HP PRN PRN Reason: Hypertension Last Admin: 06/17/21 00:30 Dose: 10 mg Documented by: Metoclopramide HCl (Metoclopramide 10 Mg/2 Ml Vial) 10 mg IV Q6HP PRN PRN Reason: Nausea And Vomiting Ondansetron HCl (Ondansetron 4 Mg/2 Ml Vial) 4 mg IV Q4HP PRN PRN Reason: Nausea And Vomiting Polyethylene Glycol (Polyethylene Glycol 3350 17 Gm Packet) 17 gm PO DAILYP PRN PRN Reason: Constipation Potassium Chloride (Potassium Chloride 20 Meq Tablet) 40 meq PO UD PRN PRN Reason: Potssium is 3-3.5 Potassium Chloride (Potassium Chloride 20 Meq Tablet) 40 meq PO UD PRN PRN Reason: Potassium < 3 Promethazine HCl (Promethazine 25 Mg/Ml Vial) 12.5 mg IV Q6HP PRN PRN Reason: Nausea And Vomiting Senna (Sennosides 1 Tablet) 2 tab PO DAILYP PRN PRN Reason: Constipation Sodium Chloride (0.9 % Sodium Chloride 10 Ml Syringe) 10 ml IV Q8 WILBER Last Admin: 06/17/21 04:27 Dose: 10 ml Documented by: A/P Narrative A/P Narrative: A: *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 *h/o CEA and KARLA: was on Plavix in past, has followed with Dr. Pcak *CKD III: Follows with Dr. Black *HTN: on hydralazine/torsemide/ARB * P: -lasix -serial Na -Antiemetics -echo pending -empric abx, SC pending -Continue home diltiazem/ARB/statin -Medication reconciliation -PT/OT -ppx: eliquis DNR Time Spent With Patient Time: Total time spent is greater than 50% in coordination of care (as documented) at patient's floor/unit and/or counseling patient: QUALITY VTE Deep Vein Thrombosis/Pulmonary Embolism Present on Admission: No
[2021-06-17 08:27] LABS: ALT/SGPT 16 U/L (<40); AST/SGOT 22 U/L (<32); Albumin 3.4 gm/dL (3.2-5.2); Albumin/Globulin Ratio 1.1 (1.0-2.3); Alkaline Phosphatase 56 U/L (39-117); Bilirubin,Direct < 0.2 mg/dL (0-0.3); Bilirubin,Total 0.3 mg/dL (0.1-1.0); Blood Urea Nitrogen 29 mg/dL (8-23); Calcium 9.1 mg/dL (8.6-10.4); Carbon Dioxide 24 mmol/L (22-30); Chloride 85 mmol/L (96-108); Glomerular Filtration Rate 40; Glucose 95 mg/dL (70-105); Lactate Dehydrogenase 146 U/L (135-225); Phosphorous 2.7 mg/dL (2.5-4.5); Triglycerides 64 mg/dL (<150); Uric Acid 6.8 mg/dL (2.5-8.0)
[2021-06-17] MEDS ORDERED: SODIUM CHLORIDE 1 GM TABLET PO SCH (09:00)
[2021-06-17] MEDS ORDERED: FUROSEMIDE 20 MG/2 ML VIAL IV ONE (09:13)
[2021-06-17] MEDS ORDERED: hydrALAZINE 20 MG/ML VIAL IV PRN (09:15)
[2021-06-17] MEDS: APIXABAN 5 MG TABLET PO SCH ×2 (09:37→21:13)
[2021-06-17] MEDS: DOCUSATE SODIUM 100 MG CAPSULE PO SCH ×2 (09:40→19:50)
[2021-06-17 09:50] LABS: Anisocytosis 1+ (None Seen); Eosinophils % (Manual) 2 % (0-7); Lymphocytes % 8 % (15-49); Monocytes % (Manual) 8 % (1-12); Platelet Estimate NORMAL (Normal); RBC Morphology ABNORMAL (Normal); Reactive Lymphocytes 1 % (0-2); Segmented Neutrophils % 81 % (38-78)
[2021-06-17] MEDS ORDERED: TAMSULOSIN 0.4 MG CAPSULE PO ONE (10:19)
[2021-06-17] MEDS ORDERED: METOPROLOL TARTRATE 5 MG/5 ML VIAL IV PRN (11:43)
[2021-06-17 12:14] LABS: POC Blood Urea Nitrogen 28 mg/dL (6-20); POC CO2 28 mmol/L (22-30); POC Calcium, Ionized 1.18 mmEq/L (1.16-1.32); POC Chloride 86 mEq/L (96-108); POC Creatinine 1.3 mg/dL (0.6-1.2); POC Glucose, Random 96 mg/dL (70-105); POC Hematocrit 34 % (36-48); POC Potassium 4.3 mEql/L (3.3-5.1); POC Sodium 125 mEq/L (133-145)
[2021-06-17] MEDS: hydrALAZINE 25 MG TABLET PO SCH (16:26)
[2021-06-18] MEDS: hydrALAZINE 25 MG TABLET PO SCH ×4 (00:20→21:15)
[2021-06-18] MEDS: 0.9 % SODIUM CHLORIDE 10 ML SYRINGE IV SCH ×3 (04:48→21:16)
[2021-06-18 07:58] LABS: ALT/SGPT 17 U/L (<40); AST/SGOT 23 U/L (<32); Albumin 3.4 gm/dL (3.2-5.2); Albumin/Globulin Ratio 1.1 (1.0-2.3); Alkaline Phosphatase 56 U/L (39-117); Bilirubin,Direct < 0.2 mg/dL (0-0.3); Bilirubin,Total 0.3 mg/dL (0.1-1.0); Blood Urea Nitrogen 22 mg/dL (8-23); Calcium 9.2 mg/dL (8.6-10.4); Carbon Dioxide 28 mmol/L (22-30); Chloride 90 mmol/L (96-108); Glomerular Filtration Rate 40; Glucose 75 mg/dL (70-105); Lactate Dehydrogenase 153 U/L (135-225); Phosphorous 3.2 mg/dL (2.5-4.5); Triglycerides 101 mg/dL (<150)
--- NOTE | 2021-06-18 09:09 | Internal Med Progress Note ---
SUBJECTIVE Subjective Patient information: Note initiated : 06/18/21 at 9:03 am Service Date, if different from initiated Date: [] Patient: Lionel Knapp 86 y/o F admitted on 06/16/21 for abdominal pain. Chief Complaint: [] Interval history: History of present illness: Ms. Knapp is a 86 year old F Presents the ED with a abdominal pain describes an upset stomach and nausea and generalized weakness. She was diagnosed with a UTI last or Monday. And it seems that since that time she has had increased nausea and weakness. She was prescribed Macrobid on the fourth by urgent care provider. 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 She was also noted to be mildly hypoxic and her family member feels she is had a postnasal drip cough and states she breathes a little bit differently lately. Although she does not complain of shortness of breath. She does complain of upset stomach and the nausea nothing else really. No change in her bowels. No vomiting. Denies any recent medication changes other than the antibiotic recently started. 06/17 No overnight event or new complaints. Nausea improving. On minimal oxygen requirement. Sodium slowly coming up as expected slowly. Mild cough and denies shortness of breath 06/18 Patient feels tired and weak today. On 1 L nasal cannula, improved. CRP and procalcitonin improved. Echo pending Review of Systems: denies headache/fever/chills/vomiting/chest or abdominal pain/diarrhea. Otherwise see above. Constitutional Vitals: Vital Signs Temp Pulse Resp BP Pulse Ox 97.8 F 70 16 142/53 97 06/18/21 04:02 06/18/21 06:01 06/18/21 00:02 06/18/21 06:01 06/18/21 06:01 Period Temp Pulse Resp BP Sys/Mcintosh Pulse Ox Last 24 Hr 97.1 F-98.8 F 46-82 16-22 112-170/42-117 93-98 Intake and Output 06/17/21 06/18/21 06/18/21 21:59 05:59 13:59 Intake Total 1540 605 Output Total 915 325 125 Balance 625 -325 480 Weight 38.3 kg Intake & Output: Intake & Output 06/17/21 06/18/2106/18/21 21:59 05:59 13:59 Intake Total 1540 605 Output Total 915 325 125 Balance 625 -325 480 Weight 38.3 kg Intake: IV 300 Zithromax 500 mg In Dextrose 5% 250 in Water 250 ml @ 250 mls/hr IV Q24H [facility] Rx#:[id number] Rocephin 2 gm In Dextrose 5% in 50 Water 50 ml @ 100 mls/hr IV Q24H [facility] Rx#:[id number] Oral 1240 605 Output: Void Amount 915 325 Urine/Stool Mix 125 Other: Meal Dinner Breakfast Percent of Meal Consumed 75% 100% Feeding Ability Independent Independent Urine Appearance Clear Clear Urine Color Pale Bright Yellow Urine Odor Normal Stool Size Moderate Small Stool Color Brown Brown Stool Consistency Soft Nidia Loose Exam: General: Alert, Awake, No acute Distress Eyes/N/T: EOMI, Head/Neck: neck supple, CV: irreg irreg, No murmurs, Pulm: Clear b/l, no wheezing/rhonchi/rales Abd: soft, nontender, +BS x4 Ext: no clubbing/cyanosis, mild b/l LE edema Neuro: Alert, no focal deficits, moves all extremities, Skin: warm/dry OBJ DATA Labs CBC & Chem 7: 06/17/21 05:08 06/18/21 05:17 Labs: Abnormal Lab Results 06/18/21 06/18/21 06/17/21 05:18 05:17 12:00 WBC RBC Hgb Hct POC Hct 34 L RDW Neut % (Auto) Lymph % (Auto) Lymph # (Auto) Seg Neutrophils % Lymphocytes % Absolute Neutrophils RBC Morphology Anisocytosis POC Sodium 125 L Sodium 125 L POC Chloride 86 L Chloride 90 L Anion Gap 7.0 L POC BUN 28 H BUN Creatinine 1.2 H POC Creatinine 1.3 H Glucose Osmolality C-Reactive Protein 3.60 H NT-Pro-B Natriuret Pep Procalcitonin 1.43 H 06/17/21 06/17/21 06/16/21 05:08 05:07 22:31 WBC RBC 3.38 L Hgb 9.9 L Hct 29.1 L POC Hct 31 L RDW 14.6 H Neut % (Auto) Lymph % (Auto) Lymph # (Auto) Seg Neutrophils % 81 H 89 H Lymphocytes % 8 L 7 L Absolute Neutrophils RBC Morphology Abnormal A Anisocytosis 1+ A POC Sodium 122 L Sodium 120 L POC Chloride 85 L Chloride 85 L Anion Gap POC BUN 30 H BUN 29 H Creatinine 1.2 H POC Creatinine 1.4 H Glucose Osmolality C-Reactive Protein 6.00 H NT-Pro-B Natriuret Pep Procalcitonin 06/16/21 06/16/21 06/16/21 22:31 22:31 22:07 WBC RBC Hgb Hct POC Hct RDW Neut % (Auto) Lymph % (Auto) Lymph # (Auto) Seg Neutrophils % Lymphocytes % Absolute Neutrophils RBC Morphology Anisocytosis POC Sodium Sodium POC Chloride Chloride Anion Gap POC BUN BUN Creatinine POC Creatinine Glucose Osmolality 260 L C-Reactive Protein 8.20 H NT-Pro-B Natriuret Pep Procalcitonin 3.47 H 06/16/21 06/16/21 06/16/21 22:00 20:33 20:32 WBC 14.6 H RBC Hgb Hct 33.1 L POC Hct RDW 14.7 H Neut % (Auto) 88.0 H Lymph % (Auto) 6.8 L Lymph # (Auto) 0.99 L Seg Neutrophils % Lymphocytes % Absolute Neutrophils 12.88 H RBC Morphology Anisocytosis POC Sodium Sodium 118 L* POC Chloride Chloride 81 L Anion Gap POC BUN BUN 35 H Creatinine 1.3 H POC Creatinine 1.4 H Glucose 108 H Osmolality C-Reactive Protein NT-Pro-B Natriuret Pep 6373.0 H Procalcitonin Meds: Medications Acetaminophen (Acetaminophen 325 Mg Tablet) 650 mg PO Q6HP PRN; Protocol PRN Reason: Per Pain Protocol/Fever > 101 Albuterol/Ipratropium (Ipratropium/Albuterol 3 Ml Ampul.Neb) 3 ml NEB Q4HP PRN PRN Reason: Shortness Of Breath Apixaban (Apixaban 5 Mg Tablet) 2.5 mg PO BID [facility] Last Admin: 06/17/21 21:13 Dose: 2.5 mg Documented by: Atorvastatin Calcium (Atorvastatin 10 Mg Tablet) 10 mg PO DAILY [facility] Diltiazem HCl (Diltiazem 180 Mg Cap.Xl.24h) 360 mg PO DAILY [facility] Docusate Sodium (Docusate Sodium 100 Mg Capsule) 100 mg PO BID [facility] Last Admin: 06/17/21 19:50 Dose: Not Given Documented by: Hydralazine HCl (Hydralazine 20 Mg/Ml Vial) 0 mg IV Q2HP PRN PRN Reason: Hypertension Hydralazine HCl (Hydralazine 25 Mg Tablet) 25 mg PO TID [facility] Last Admin: 06/18/21 00:20 Dose: 25 mg Documented by: Potassium Chloride 40 meq/ (Dextrose) 520 mls @ 130 mls/hr IV UD PRN PRN Reason: Potassium < 3 Magnesium Sulfate (Magnesium Sulfate) 2 gm in 50 mls @ 50 mls/hr IV UD PRN PRN Reason: Magnesium </= 1.6 Ceftriaxone Sodium 2 gm/ (Dextrose) 50 mls @ 100 mls/hr IV Q24H [facility]; Protocol Last Infusion: 06/17/21 16:56 Dose: Infused Documented by: Azithromycin 500 mg/ Dextrose 250 mls @ 250 mls/hr IV Q24H [facility]; Protocol Stop: 06/19/21 00:45 Last Infusion: 06/17/21 18:02 Dose: Infused Documented by: Losartan Potassium (Losartan 50 Mg Tablet) 100 mg PO DAILY [facility] Metoclopramide HCl (Metoclopramide 10 Mg/2 Ml Vial) 10 mg IV Q6HP PRN PRN Reason: Nausea And Vomiting Metoprolol Tartrate (Metoprolol Tartrate 5 Mg/5 Ml Vial) 5 mg IV Q2HP PRN PRN Reason: Tachyarrhythmias HR>110 Ondansetron HCl (Ondansetron 4 Mg/2 Ml Vial) 4 mg IV Q4HP PRN PRN Reason: Nausea And Vomiting Polyethylene Glycol (Polyethylene Glycol 3350 17 Gm Packet) 17 gm PO DAILYP PRN PRN Reason: Constipation Potassium Chloride (Potassium Chloride 20 Meq Tablet) 40 meq PO UD PRN PRN Reason: Potssium is 3-3.5 Potassium Chloride (Potassium Chloride 20 Meq Tablet) 40 meq PO UD PRN PRN Reason: Potassium < 3 Promethazine HCl (Promethazine 25 Mg/Ml Vial) 12.5 mg IV Q6HP PRN PRN Reason: Nausea And Vomiting Senna (Sennosides 1 Tablet) 2 tab PO DAILYP PRN PRN Reason: Constipation Sodium Chloride (0.9 % Sodium Chloride 10 Ml Syringe) 10 ml IV Q8 [facility] Last Admin: 06/18/21 04:48 Dose: 10 ml Documented by: Torsemide (Torsemide 10 Mg Tablet) 10 mg PO DAILY [facility] A/P Narrative A/P Narrative: A: *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 *h/o CEA and KARLA: was on Plavix in past, has followed with Dr. Pack *CKD III: Follows with Dr. Black *HTN: on hydralazine/torsemide/ARB/dilt * P: -prn lasix -serial Na -f/u cxr -Antiemetics -echo pending -empric abx, SC pending -Continue home diltiazem/hydralazine/ARB, statin -PT/OT -ppx: eliquis DNR Time Spent With Patient Time: Total time spent is greater than 50% in coordination of care (as documented) at patient's floor/unit and/or counseling patient: QUALITY VTE Deep Vein Thrombosis/Pulmonary Embolism Present on Admission: No
--- NOTE | 2021-06-18 09:56 | EKG ---
[facility] Test Date: 2021-06-17 Pat Name: Lionel Knapp Department: ICU Room: 120A Gender: Female [employer]: micah : 1935 Requested By: Avi Simmons Order Number: [id number] Reading MD: Jarrod Cintron M.D. Measurements Intervals [place] Rate: 61 P: CA: QRS: 32 QRSD: 99 T: 7 QT: 407 QTc: 410 Interpretive Statements Atrial fibrillation Anteroseptal infarct, old Electronically Signed On 06-18-2021 9:56:20 PST by Jarrod Cintron M.D. /[email or web address]/[email or web address]/[id number]
[2021-06-18] MEDS ORDERED: FUROSEMIDE 40 MG/4 ML VIAL IV ONE (10:21)
--- NOTE | 2021-06-18 10:21 | XRay Report ---
CLINICAL INFORMATION: Shortness of breath COMPARISON: 06/16/2021 TECHNIQUE: PA and Lateral views FINDINGS: The heart is markedly enlarged but unchanged. Mediastinum is unremarkable. The pulmonary vessels have decreased in caliber, but remain mildly distended. Interstitial edema has nearly resolved. Moderate consolidated infiltrate in the left base and moderate left pleural effusion have progressed. Moderate patchy infiltrate in the right base and right pleural effusion have also progressed. IMPRESSION: Improving CHF Moderate consolidated left basilar infiltrate and moderate patchy right basilar infiltrate-worsening slightly Interpreted and Authenticated by: Jarrod Shukla 06/18/21
[2021-06-18] MEDS: cefTRIAXone 2 GM in DEXTROSE 5% IN WATER 50 ML IV SCH (10:41)
[2021-06-18] MEDS: ATORVASTATIN 10 MG TABLET PO SCH (10:48)
[2021-06-18] MEDS: TORSEMIDE 10 MG TABLET PO SCH (10:48)
[2021-06-18] MEDS: DILTIAZEM 180 MG CAP.XL.24H PO SCH (10:48)
[2021-06-18] MEDS: LOSARTAN 50 MG TABLET PO SCH (10:49)
[2021-06-18] MEDS: DOCUSATE SODIUM 100 MG CAPSULE PO SCH ×2 (10:49→21:12)
[2021-06-18] MEDS: APIXABAN 5 MG TABLET PO SCH ×2 (10:49→21:16)
[2021-06-18] MEDS: SODIUM CHLORIDE 1 GM TABLET PO SCH ×3 (10:54→21:15)
[2021-06-18] MEDS: AZITHROMYCIN 500 MG in DEXTROSE 5% IN WATER 250 ML IV SCH (11:20)
--- NOTE | 2021-06-18 15:09 | Discharge Summary ---
Discharge Provider Provider Patient information: Note initiated : 06/18/21 at 3:06 pm Service Date, if different from initiated Date: [] Patient: Lionel Knapp 86 y/o F admitted on 06/16/21 for abdominal pain. Chief Complaint: [] Date of admission: 06/16/21 23:37 Primary care physician: Jose Jarquin MD Consults: 06/16/21 Consult to Physician [CONS] Stat Comment: Consulting Provider: Avi Simmons Reason For Exam: Physician to Consult Discharge Meds Discharge Medications Home Medications multivitamin 1 tab PO QDAY tab 02/03/15 [History Confirmed 06/17/21 Last Taken Unknown] glucosamine HCl 1,500 mg tablet 1,500 mg PO QDAY 07/20/17 [History Confirmed 06/17/21 Last Taken Unknown] flaxseed oil 1,000 mg capsule 1,000 mg PO QDAY 11/16/17 [History Confirmed 06/17/21 Last Taken Unknown] apixaban 5 mg tablet (Eliquis) 5 mg PO BID 12/26/18 [History Confirmed 06/17/21 Last Taken Unknown] diltiazem HCl 360 mg capsule,extended release 24 hr 360 mg PO QDAY #90 cap 05/26/20 [Rx Confirmed 06/17/21 Last Taken Unknown] fexofenadine 180 mg tablet (Radha Allergy) 180 mg PO QDAY 09/04/20 [History Confirmed 06/17/21 Last Taken Unknown] B/L knee high compression garments (15-20 mmHg) #1 ea 12/31/20 [Rx Confirmed 06/17/21 Last Taken Unknown] hydralazine 25 mg tablet 25 mg PO TID #270 tab 03/30/21 [Rx Confirmed 06/17/21 Last Taken Unknown] rosuvastatin 5 mg tablet 5 mg PO QDAY #90 tab 03/30/21 [Rx Confirmed 06/17/21 Last Taken Unknown] valsartan 160 mg tablet 160 mg PO DAILY 06/17/21 [History Confirmed 06/17/21 Last Taken Unknown] cefpodoxime 200 mg tablet 200 mg PO BID #6 tab 06/18/21 [Rx Last Taken Unknown] torsemide 10 mg tablet 20 mg PO DAILY #30 tab 06/18/21 [Rx Last Taken Unknown] COURSE Hospital Course Hospital course: Interval history: History of present illness: Ms. Knapp is a 86 year old F Presents the ED with a abdominal pain describes an upset stomach and nausea and generalized weakness. She was diagnosed with a UTI last or Monday. And it seems that since that time she has had increased nausea and weakness. She was prescribed Macrobid on the fourth by urgent care provider. 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 She was also noted to be mildly hypoxic and her family member feels she is had a postnasal drip cough and states she breathes a little bit differently lately. Although she does not complain of shortness of breath. She does complain of upset stomach and the nausea nothing else really. No change in her bowels. No vomiting. Denies any recent medication changes other than the antibiotic recently started. 06/17 No overnight event or new complaints. Nausea improving. On minimal oxygen requirement. Sodium slowly coming up as expected slowly. Mild cough and denies shortness of breath 06/18 Patient feels tired and weak today. On 1 L nasal cannula, improved. CRP and procalcitonin improved. Echo pending Echo with good EF. Diastolic grade 3 dysfunction, mildly reduced RV systolic function, severe biatrial dilation, mod-sev MR/TR, mod pulm HTN. 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 *h/o CEA and KARLA: was on Plavix in past, has followed with Dr. Pack *CKD III: Follows with Dr. Black *HTN: on hydralazine/torsemide/ARB/dilt * Discharge diagnosis: Hyponatremia heart failure acute hypoxic respiratory failure Secondary discharge diagnosis: Nausea vomiting pneumonia chronic A. fib CKD hypertension Time Spent with Patient Time attestation: Total time spent providing and/or coordinating discharge services: Time spent: Greater than 30 minutes EXAM Constitutional Vitals: Temp Pulse Resp BP Pulse Ox 97.8 F 82 16 143/65 96 06/18/21 12:02 06/18/21 14:01 06/18/21 12:02 06/18/21 14:01 06/18/21 14:01 Discharge Data Data Completed and Pending Labs on day of discharge: Labs from last 24 hours 06/18/21 06/18/21 05:18 05:17 Sodium 125 L Potassium 4.3 Chloride 90 L Carbon Dioxide 28 Anion Gap 7.0 L BUN 22 Creatinine 1.2 H GFR Calculation 40 Glucose 75 Uric Acid 7.0 Calcium 9.2 Phosphorus 3.2 Magnesium 2.0 Total Bilirubin 0.3 Direct Bilirubin < 0.2 GGT 31 AST 23 ALT 17 Alkaline Phosphatase 56 Lactate Dehydrogenase 153 C-Reactive Protein 3.60 H Total Protein 6.4 Albumin 3.4 Globulin 3.0 Albumin/Globulin Ratio 1.1 Triglycerides 101 Procalcitonin 1.43 H Discharge Plan Patient/Caregiver Discharge Instructions Activity: increase activity as tolerated Diet: Regular Diet Activity Restrictions/Additional Instructions: Chery see cardiology in 3 to 14 days for heart failure and valvular heart disease. Prescriptions: New cefpodoxime 200 mg tablet 200 mg PO BID Qty: 6 0RF Rx Instructions: must administer with a meal/food Continued diltiazem HCl 360 mg capsule,extended release 24hr 360 mg PO QDAY Qty: 90 4RF hydralazine 25 mg tablet 25 mg PO TID Qty: 270 1RF rosuvastatin 5 mg tablet 5 mg PO QDAY Qty: 90 0RF multivitamin tablet 1 tab PO QDAY 0RF fexofenadine [Radha Allergy] 180 mg tablet 180 mg PO QDAY 0RF (DME) B/L knee high compression garments (15-20 mmHg) See Rx Instructions .Route .MEDSUPPLY Qty: 1 0RF Rx Instructions: As directed glucosamine HCl 1,500 mg tablet 1,500 mg PO QDAY 0RF flaxseed oil 1,000 mg capsule 1,000 mg PO QDAY 0RF Eliquis 5 mg tablet 5 mg PO BID 0RF valsartan 160 mg tablet 160 mg PO DAILY 0RF Changed torsemide 10 mg tablet 20 mg PO DAILY Qty: 30 0RF Other Ambulatory Orders: Basic Metabolic Panel (Routine) Timeframe: 3 Days Facility: [facility] - Location: Laboratory Ordered By: Avi Simmons Follow Up Plan Follow up with: Jose Jarquin MD [Primary Care Provider] - Patient Disposition: Home, Self-Care Prognosis: Fair Overall status at discharge: patient is progressing back to baseline QUALITY VTE Deep Vein Thrombosis/Pulmonary Embolism Present on Admission: No
[2021-06-18 15:42] LABS: POC Blood Urea Nitrogen 20 mg/dL (6-20); POC CO2 31 mmol/L (22-30); POC Calcium, Ionized 1.18 mmEq/L (1.16-1.32); POC Chloride 85 mEq/L (96-108); POC Creatinine 1.1 mg/dL (0.6-1.2); POC Glucose, Random 108 mg/dL (70-105); POC Hematocrit 36 % (36-48); POC Sodium 127 mEq/L (133-145)
[2021-06-19] MEDS: 0.9 % SODIUM CHLORIDE 10 ML SYRINGE IV SCH ×3 (05:47→20:48)
[2021-06-19 06:50] LABS: Hematocrit 33.6 % (34.1-44.9); Hemoglobin 11.3 g/dL (11.2-15.7)
[2021-06-19 07:28] LABS: ALT/SGPT 18 U/L (<40); AST/SGOT 26 U/L (<32); Albumin 3.3 gm/dL (3.2-5.2); Albumin/Globulin Ratio 0.9 (1.0-2.3); Alkaline Phosphatase 55 U/L (39-117); Bilirubin,Direct < 0.2 mg/dL (0-0.3); Bilirubin,Total 0.3 mg/dL (0.1-1.0); Blood Urea Nitrogen 20 mg/dL (8-23); Calcium 9.3 mg/dL (8.6-10.4); Carbon Dioxide 28 mmol/L (22-30); Chloride 87 mmol/L (96-108); Globulin 3.5 gm/dL (2.2-3.7); Glomerular Filtration Rate 45; Glucose 78 mg/dL (70-105); Lactate Dehydrogenase 184 U/L (135-225); Phosphorous 3.2 mg/dL (2.5-4.5); Triglycerides 80 mg/dL (<150); Uric Acid 6.8 mg/dL (2.5-8.0)
--- NOTE | 2021-06-19 07:55 | Internal Med Progress Note ---
SUBJECTIVE Subjective Patient information: Note initiated : 06/19/21 at 7:49 am Service Date, if different from initiated Date: [] Patient: Lionel Knapp 86 y/o F admitted on 06/16/21 for abdominal pain. Chief Complaint: [] Interval history: History of present illness: Ms. Knapp is a 86 year old F Presents the ED with a abdominal pain describes an upset stomach and nausea and generalized weakness. She was diagnosed with a UTI last or Monday. And it seems that since that time she has had increased nausea and weakness. She was prescribed Macrobid on the fourth by urgent care provider. 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 She was also noted to be mildly hypoxic and her family member feels she is had a postnasal drip cough and states she breathes a little bit differently lately. Although she does not complain of shortness of breath. She does complain of upset stomach and the nausea nothing else really. No change in her bowels. No vomiting. Denies any recent medication changes other than the antibiotic recently started. 06/17 No overnight event or new complaints. Nausea improving. On minimal oxygen requirement. Sodium slowly coming up as expected slowly. Mild cough and denies shortness of breath 06/18 Patient feels tired and weak today. On 1 L nasal cannula, improved. CRP and procalcitonin improved. Echo pending 06/19 No overnight event or new complaints. Patient has some cough, denies shortness of breath at rest. Legs have no edema anymore. Sodium 127. salt tabs started yesterday, will start fluid restrict today. Review of Systems: denies headache/fever/chills/vomiting/chest or abdominal pain/diarrhea. Otherwise see above. Constitutional Vitals: Vital Signs Temp Pulse Resp BP Pulse Ox 97.4 F 64 16 137/73 96 06/19/21 04:04 06/19/21 02:01 06/18/21 12:02 06/19/21 04:04 06/19/21 06:00 Period Temp Pulse Resp BP Sys/Mcintosh Pulse Ox Last 24 Hr 97.4 F-97.9 F 64-86 16-16 114-157/55-73 91-96 Intake and Output 06/18/21 06/19/21 06/19/21 21:59 05:59 13:59 Intake Total 720 Output Total 400 375 75 Balance 320 -375 -75 Weight 57.289 kg Intake & Output: Intake & Output 06/18/21 06/19/21 06/19/21 21:59 05:59 13:59 Intake Total 720 Output Total 400 375 75 Balance 320 -375 -75 Weight 57.289 kg Intake: Oral 720 Output: Void Amount 400 375 75 Other: Meal Dinner Percent of Meal Consumed 50% Feeding Ability Independent Urine Appearance Clear Clear Clear Urine Color Straw Pale Bright Yellow Urine Odor Normal Normal Normal Stool Size Small Stool Color Brown Stool Consistency Soft Formed Exam: General: Alert, Awake, No acute Distress Eyes/N/T: EOMI, Head/Neck: neck supple, CV: irreg irreg, No murmurs, Pulm: Clear b/l, no wheezing/rhonchi/rales Abd: soft, nontender, +BS x4 Ext: no clubbing/cyanosis, trace b/l LE edema Neuro: Alert, no focal deficits, moves all extremities, Skin: warm/dry OBJ DATA Labs CBC & Chem 7: 06/19/21 05:21 06/19/21 05:21 Labs: Abnormal Lab Results 06/19/21 06/19/21 06/19/21 05:22 05:21 05:21 WBC RBC Hgb Hct 33.6 L POC Hct RDW Neut % (Auto) Lymph % (Auto) Lymph # (Auto) Seg Neutrophils % Lymphocytes % Absolute Neutrophils RBC Morphology Anisocytosis POC Sodium Sodium 127 L POC Chloride Chloride 87 L POC Total CO2 Anion Gap POC BUN BUN Creatinine POC Creatinine Glucose POC Glucose Osmolality C-Reactive Protein 2.30 H NT-Pro-B Natriuret Pep Albumin/Globulin Ratio 0.9 L Procalcitonin 0.86 H 06/18/21 06/18/21 06/18/21 15:29 05:18 05:17 WBC RBC Hgb Hct POC Hct RDW Neut % (Auto) Lymph % (Auto) Lymph # (Auto) Seg Neutrophils % Lymphocytes % Absolute Neutrophils RBC Morphology Anisocytosis POC Sodium 127 L Sodium 125 L POC Chloride 85 L Chloride 90 L POC Total CO2 31 H Anion Gap 7.0 L POC BUN BUN Creatinine 1.2 H POC Creatinine Glucose POC Glucose 108 H Osmolality C-Reactive Protein 3.60 H NT-Pro-B Natriuret Pep Albumin/Globulin Ratio Procalcitonin 1.43 H 06/17/21 06/17/21 06/17/21 12:00 05:08 05:07 WBC RBC 3.38 L Hgb 9.9 L Hct 29.1 L POC Hct 34 L 31 L RDW 14.6 H Neut % (Auto) Lymph % (Auto) Lymph # (Auto) Seg Neutrophils % 81 H Lymphocytes % 8 L Absolute Neutrophils RBC Morphology Abnormal A Anisocytosis 1+ A POC Sodium 125 L 122 L Sodium 120 L POC Chloride 86 L 85 L Chloride 85 L POC Total CO2 Anion Gap POC BUN 28 H 30 H BUN 29 H Creatinine 1.2 H POC Creatinine 1.3 H 1.4 H Glucose POC Glucose Osmolality C-Reactive Protein 6.00 H NT-Pro-B Natriuret Pep Albumin/Globulin Ratio Procalcitonin 06/16/21 06/16/21 06/16/21 22:31 22:31 22:31 WBC RBC Hgb Hct POC Hct RDW Neut % (Auto) Lymph % (Auto) Lymph # (Auto) Seg Neutrophils % 89 H Lymphocytes % 7 L Absolute Neutrophils RBC Morphology Anisocytosis POC Sodium Sodium POC Chloride Chloride POC Total CO2 Anion Gap POC BUN BUN Creatinine POC Creatinine Glucose POC Glucose Osmolality C-Reactive Protein 8.20 H NT-Pro-B Natriuret Pep Albumin/Globulin Ratio Procalcitonin 3.47 H 06/16/21 06/16/21 06/16/21 22:07 22:00 20:33 WBC 14.6 H RBC Hgb Hct 33.1 L POC Hct RDW 14.7 H Neut % (Auto) 88.0 H Lymph % (Auto) 6.8 L Lymph # (Auto) 0.99 L Seg Neutrophils % Lymphocytes % Absolute Neutrophils 12.88 H RBC Morphology Anisocytosis POC Sodium Sodium POC Chloride Chloride POC Total CO2 Anion Gap POC BUN BUN Creatinine POC Creatinine Glucose POC Glucose Osmolality 260 L C-Reactive Protein NT-Pro-B Natriuret Pep 6373.0 H Albumin/Globulin Ratio Procalcitonin 06/16/21 20:32 WBC RBC Hgb Hct POC Hct RDW Neut % (Auto) Lymph % (Auto) Lymph # (Auto) Seg Neutrophils % Lymphocytes % Absolute Neutrophils RBC Morphology Anisocytosis POC Sodium Sodium 118 L* POC Chloride Chloride 81 L POC Total CO2 Anion Gap POC BUN BUN 35 H Creatinine 1.3 H POC Creatinine 1.4 H Glucose 108 H POC Glucose Osmolality C-Reactive Protein NT-Pro-B Natriuret Pep Albumin/Globulin Ratio Procalcitonin Meds: Medications Acetaminophen (Acetaminophen 325 Mg Tablet) 650 mg PO Q6HP PRN; Protocol PRN Reason: Per Pain Protocol/Fever > 101 Albuterol/Ipratropium (Ipratropium/Albuterol 3 Ml Ampul.Neb) 3 ml NEB Q4HP PRN PRN Reason: Shortness Of Breath Apixaban (Apixaban 5 Mg Tablet) 2.5 mg PO BID [facility] Last Admin: 06/18/21 21:16 Dose: 2.5 mg Documented by: Atorvastatin Calcium (Atorvastatin 10 Mg Tablet) 10 mg PO DAILY [facility] Last Admin: 06/18/21 10:48 Dose: 10 mg Documented by: Diltiazem HCl (Diltiazem 180 Mg Cap.Xl.24h) 360 mg PO DAILY [facility] Last Admin: 06/18/21 10:48 Dose: 360 mg Documented by: Docusate Sodium (Docusate Sodium 100 Mg Capsule) 100 mg PO BID [facility] Last Admin: 06/18/21 21:12 Dose: Not Given Documented by: Hydralazine HCl (Hydralazine 20 Mg/Ml Vial) 0 mg IV Q2HP PRN PRN Reason: Hypertension Hydralazine HCl (Hydralazine 25 Mg Tablet) 25 mg PO TID [facility] Last Admin: 06/18/21 21:15 Dose: 25 mg Documented by: Potassium Chloride 40 meq/ (Dextrose) 520 mls @ 130 mls/hr IV UD PRN PRN Reason: Potassium < 3 Magnesium Sulfate (Magnesium Sulfate) 2 gm in 50 mls @ 50 mls/hr IV UD PRN PRN Reason: Magnesium </= 1.6 Ceftriaxone Sodium 2 gm/ (Dextrose) 50 mls @ 100 mls/hr IV Q24H [facility]; Protocol Last Infusion: 06/18/21 11:11 Dose: Infused Documented by: Losartan Potassium (Losartan 50 Mg Tablet) 100 mg PO DAILY [facility] Last Admin: 06/18/21 10:49 Dose: 100 mg Documented by: Metoclopramide HCl (Metoclopramide 10 Mg/2 Ml Vial) 10 mg IV Q6HP PRN PRN Reason: Nausea And Vomiting Metoprolol Tartrate (Metoprolol Tartrate 5 Mg/5 Ml Vial) 5 mg IV Q2HP PRN PRN Reason: Tachyarrhythmias HR>110 Ondansetron HCl (Ondansetron 4 Mg/2 Ml Vial) 4 mg IV Q4HP PRN PRN Reason: Nausea And Vomiting Polyethylene Glycol (Polyethylene Glycol 3350 17 Gm Packet) 17 gm PO DAILYP PRN PRN Reason: Constipation Potassium Chloride (Potassium Chloride 20 Meq Tablet) 40 meq PO UD PRN PRN Reason: Potssium is 3-3.5 Potassium Chloride (Potassium Chloride 20 Meq Tablet) 40 meq PO UD PRN PRN Reason: Potassium < 3 Promethazine HCl (Promethazine 25 Mg/Ml Vial) 12.5 mg IV Q6HP PRN PRN Reason: Nausea And Vomiting Senna (Sennosides 1 Tablet) 2 tab PO DAILYP PRN PRN Reason: Constipation Sodium Chloride (0.9 % Sodium Chloride 10 Ml Syringe) 10 ml IV Q8 [facility] Last Admin: 06/19/21 05:47 Dose: 10 ml Documented by: Sodium Chloride (Sodium Chloride 1 Gm Tablet) 1 gm PO TID [facility] Last Admin: 06/18/21 21:15 Dose: 1 gm Documented by: Torsemide (Torsemide 10 Mg Tablet) 10 mg PO DAILY [facility] Last Admin: 06/18/21 10:48 Dose: 10 mg Documented by: A/P Narrative A/P Narrative: A: *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 Diastolic grade 3 dysfunction, mildly reduced RV systolic function, severe biatrial dilation, mod-sev MR/TR, mod pulm HTN. *PNA: -elevated pct/crp/wbc - all improving *Chronicatrial fibrillation: On eliquis/diltiazem. *h/o CEA and KARLA: was on Plavix in past, has followed with Dr. Pack *CKD III: Follows with Dr. Black *HTN: on hydralazine/torsemide/ARB/dilt *Gen weak: P: -restart home torsemide at increased dose -salt tabs, fluid restrict started -serial Na -empric abx, SC pending -Continue home diltiazem/hydralazine/ARB, statin -PT/OT -possible SNF -ppx: elivenita DNR Time Spent With Patient Time: Total time spent is greater than 50% in coordination of care (as documented) at patient's floor/unit and/or counseling patient: QUALITY VTE Deep Vein Thrombosis/Pulmonary Embolism Present on Admission: No
[2021-06-19] MEDS: cefTRIAXone 2 GM in DEXTROSE 5% IN WATER 50 ML IV SCH (08:57)
[2021-06-19] MEDS: TORSEMIDE 10 MG TABLET PO SCH (10:05)
[2021-06-19] MEDS: hydrALAZINE 25 MG TABLET PO SCH ×3 (10:05→20:46)
[2021-06-19] MEDS: DILTIAZEM 180 MG CAP.XL.24H PO SCH (10:06)
[2021-06-19] MEDS: SODIUM CHLORIDE 1 GM TABLET PO SCH ×3 (10:06→20:46)
[2021-06-19] MEDS: LOSARTAN 50 MG TABLET PO SCH (10:06)
[2021-06-19] MEDS: DOCUSATE SODIUM 100 MG CAPSULE PO SCH ×2 (10:06→20:46)
[2021-06-19] MEDS: ATORVASTATIN 10 MG TABLET PO SCH (10:06)
[2021-06-19] MEDS: APIXABAN 5 MG TABLET PO SCH ×2 (10:07→20:47)
[2021-06-19 19:06] LABS: POC Blood Urea Nitrogen 22 mg/dL (6-20); POC CO2 29 mmol/L (22-30); POC Calcium, Ionized 1.15 mmEq/L (1.16-1.32); POC Chloride 87 mEq/L (96-108); POC Creatinine 1.3 mg/dL (0.6-1.2); POC Glucose, Random 126 mg/dL (70-105); POC Hematocrit 34 % (36-48); POC Potassium 3.9 mEql/L (3.3-5.1); POC Sodium 127 mEq/L (133-145)
[2021-06-20] MEDS: 0.9 % SODIUM CHLORIDE 10 ML SYRINGE IV SCH ×3 (05:45→21:34)
[2021-06-20 07:46] LABS: Blood Urea Nitrogen 18 mg/dL (8-23); Carbon Dioxide 29 mmol/L (22-30); Chloride 90 mmol/L (96-108); Glomerular Filtration Rate 45; Glucose 79 mg/dL (70-105)
[2021-06-20] MEDS: DOCUSATE SODIUM 100 MG CAPSULE PO SCH ×2 (09:50→21:21)
--- NOTE | 2021-06-20 10:12 | Internal Med Progress Note ---
SUBJECTIVE Subjective Patient information: Note initiated : 06/20/21 at 10:03 am Service Date, if different from initiated Date: [] Patient: Lionel Knapp 86 y/o F admitted on 06/16/21 for abdominal pain. Chief Complaint: [] Interval history: Ms. Knapp is a 86 year old F Presents the ED with a abdominal pain describes an upset stomach and nausea and generalized weakness. She was diagnosed with a UTI last or Monday. And it seems that since that time she has had increased nausea and weakness. She was prescribed Macrobid on the fourth by urgent care provider. 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 She was also noted to be mildly hypoxic and her family member feels she is had a postnasal drip cough and states she breathes a little bit differently lately. Although she does not complain of shortness of breath. She does complain of upset stomach and the nausea nothing else really. No change in her bowels. No vomiting. Denies any recent medication changes other than the antibiotic recently started. 06/17 No overnight event or new complaints. Nausea improving. On minimal oxygen requirement. Sodium slowly coming up as expected slowly. Mild cough and denies shortness of breath 06/18 Patient feels tired and weak today. On 1 L nasal cannula, improved. CRP and procalcitonin improved. Echo pending 06/19 No overnight event or new complaints. Patient has some cough, denies shortness of breath at rest. Legs have no edema anymore. Sodium 127. salt tabs started yesterday, will start fluid restrict today. 06/20-patient doing well however feels queasy with abdominal discomfort/gurgling. Diarrhea has improved. Denies fever, chest pain, lightheadedness or dizziness but just does not feel back to baseline. Continue Eliquis for A. fib, blood pressures 160s, sodium 127, creatinine 1.1 Constitutional Vitals: Vital Signs Temp Pulse Resp BP Pulse Ox 98.1 F 64 14 161/79 96 06/20/21 08:00 06/19/21 02:01 06/19/21 20:00 06/20/21 08:00 06/20/21 08:00 Period Temp Pulse Resp BP Sys/Mcintosh Pulse Ox Last 24 Hr 97.8 F-98.2 F 14-20 118-161/54-86 92-98 Intake and Output 06/19/21 06/20/21 06/20/21 21:59 05:59 13:59 Intake Total 680 120 Output Total 300 575 250 Balance 380 575 -130 Weight 57.334 kg Alert oriented Nonlabored breathing Minimal anxiety Nondistended abdomen Intake & Output: Intake & Output 06/19/21 06/20/21 06/20/21 21:59 05:59 13:59 Intake Total 680 120 Output Total 300 575 250 Balance 380 -575 -130 Weight 57.334 kg Intake: Oral 680 120 Output: Void Amount 300 575 250 Other: Meal Dinner Breakfast Percent of Meal Consumed 100% 100% Feeding Ability Independent Independent Urine Appearance Clear Clear Clear Urine Color Bright Yellow Pale Pale Urine Odor Normal OBJ DATA Labs CBC & Chem 7: 06/19/21 05:21 06/20/21 05:20 Labs: Abnormal Lab Results 06/20/21 06/19/21 06/19/21 05:20 18:48 05:22 Hct POC Hct 34 L POC Sodium 127 L Sodium 127 L POC Chloride 87 L Chloride 90 L POC Total CO2 Anion Gap POC BUN 22 H Creatinine POC Creatinine 1.3 H POC Glucose 126 H POC WB Ioniz Calcium 1.15 L C-Reactive Protein Albumin/Globulin Ratio Procalcitonin 0.86 H 06/19/21 06/19/21 06/18/21 05:21 05:21 15:29 Hct 33.6 L POC Hct POC Sodium 127 L Sodium 127 L POC Chloride 85 L Chloride 87 L POC Total CO2 31 H Anion Gap POC BUN Creatinine POC Creatinine POC Glucose 108 H POC WB Ioniz Calcium C-Reactive Protein 2.30 H Albumin/Globulin Ratio 0.9 L Procalcitonin 06/18/21 06/18/21 06/17/21 05:18 05:17 12:00 Hct POC Hct 34 L POC Sodium 125 L Sodium 125 L POC Chloride 86 L Chloride 90 L POC Total CO2 Anion Gap 7.0 L POC BUN 28 H Creatinine 1.2 H POC Creatinine 1.3 H POC Glucose POC WB Ioniz Calcium C-Reactive Protein 3.60 H Albumin/Globulin Ratio Procalcitonin 1.43 H Meds: Medications Acetaminophen (Acetaminophen 325 Mg Tablet) 650 mg PO Q6HP PRN; Protocol PRN Reason: Per Pain Protocol/Fever > 101 Albuterol/Ipratropium (Ipratropium/Albuterol 3 Ml Ampul.Neb) 3 ml NEB Q4HP PRN PRN Reason: Shortness Of Breath Apixaban (Apixaban 5 Mg Tablet) 2.5 mg PO BID ON LICENSE OF [facility] Last Admin: 06/19/21 20:47 Dose: 2.5 mg Documented by: Atorvastatin Calcium (Atorvastatin 10 Mg Tablet) 10 mg PO DAILY ON [facility] OF [facility] Last Admin: 06/19/21 10:06 Dose: 10 mg Documented by: Diltiazem HCl (Diltiazem 180 Mg Cap.Xl.24h) 360 mg PO DAILY ON [facility] Last Admin: 06/19/21 10:06 Dose: Not Given Documented by: Docusate Sodium (Docusate Sodium 100 Mg Capsule) 100 mg PO BID ON [facility] OF [facility] Last Admin: 06/20/21 09:50 Dose: Not Given Documented by: Hydralazine HCl (Hydralazine 20 Mg/Ml Vial) 0 mg IV Q2HP PRN PRN Reason: Hypertension Hydralazine HCl (Hydralazine 25 Mg Tablet) 25 mg PO TID ON [facility] OF [facility] Last Admin: 06/19/21 20:46 Dose: 25 mg Documented by: Potassium Chloride 40 meq/ (Dextrose) 520 mls @ 130 mls/hr IV UD PRN PRN Reason: Potassium < 3 Magnesium Sulfate (Magnesium Sulfate) 2 gm in 50 mls @ 50 mls/hr IV UD PRN PRN Reason: Magnesium </= 1.6 Ceftriaxone Sodium 2 gm/ (Dextrose) 50 mls @ 100 mls/hr IV Q24H ON [facility]; Protocol Last Infusion: 06/19/21 09:27 Dose: Infused Documented by: Losartan Potassium (Losartan 50 Mg Tablet) 100 mg PO DAILY ON [facility] Last Admin: 06/19/21 10:06 Dose: 100 mg Documented by: Metoclopramide HCl (Metoclopramide 10 Mg/2 Ml Vial) 10 mg IV Q6HP PRN PRN Reason: Nausea And Vomiting Metoprolol Tartrate (Metoprolol Tartrate 5 Mg/5 Ml Vial) 5 mg IV Q2HP PRN PRN Reason: Tachyarrhythmias HR>110 Ondansetron HCl (Ondansetron 4 Mg/2 Ml Vial) 4 mg IV Q4HP PRN PRN Reason: Nausea And Vomiting Polyethylene Glycol (Polyethylene Glycol 3350 17 Gm Packet) 17 gm PO DAILYP PRN PRN Reason: Constipation Potassium Chloride (Potassium Chloride 20 Meq Tablet) 40 meq PO UD PRN PRN Reason: Potssium is 3-3.5 Potassium Chloride (Potassium Chloride 20 Meq Tablet) 40 meq PO UD PRN PRN Reason: Potassium < 3 Promethazine HCl (Promethazine 25 Mg/Ml Vial) 12.5 mg IV Q6HP PRN PRN Reason: Nausea And Vomiting Senna (Sennosides 1 Tablet) 2 tab PO DAILYP PRN PRN Reason: Constipation Sodium Chloride (0.9 % Sodium Chloride 10 Ml Syringe) 10 ml IV Q8 ON [facility] Last Admin: 06/20/21 05:45 Dose: 10 ml Documented by: Sodium Chloride (Sodium Chloride 1 Gm Tablet) 1 gm PO TID ON [facility] OF [facility] Last Admin: 06/19/21 20:46 Dose: 1 gm Documented by: Torsemide (Torsemide 10 Mg Tablet) 10 mg PO DAILY ON [facility] Last Admin: 06/19/21 10:05 Dose: 10 mg Documented by: A/P Narrative A/P Narrative: * 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 Continue fluid restriction * Nausea/abdominal discomfort persistent. Interval imaging today. CTS of unremarkable * Acute decompensated diastolic heart failure with valvular disease gradually improving with diuresis.Continue diuretics/beta-lisa/hydralazine/ARB. Echo diastolic grade 3 dysfunction, mildly reduced RV systolic function, severe biatrial dilation, mod-sev MR/TR, mod pulm HTN. * Community-acquired pneumonia clinically resolved * Chronic A. fib on rate controlled on Cardizem, CVA prophylaxis on Eliquis * h/o CEA and KARLA: was on Plavix in past, has followed with Dr. Pack * CKD III: Follows with Dr. Black * HTN: on hydralazine/torsemide/ARB/dilt * Gen weak: Continue PT OT Plan * Intra-abdominal imaging * Fluid restriction/CHF management * Continue antibiotic coverage * Continue home diltiazem/hydralazine/ARB, statin * PT/OT * possible SNF Time Spent With Patient Time: Total time spent is greater than 50% in coordination of care (as documented) at patient's floor/unit and/or counseling patient: QUALITY VTE Deep Vein Thrombosis/Pulmonary Embolism Present on Admission: No
[2021-06-20] MEDS: cefTRIAXone 2 GM in DEXTROSE 5% IN WATER 50 ML IV SCH (10:14)
[2021-06-20] MEDS: hydrALAZINE 25 MG TABLET PO SCH ×3 (10:14→21:21)
[2021-06-20] MEDS: SODIUM CHLORIDE 1 GM TABLET PO SCH ×3 (10:14→21:21)
[2021-06-20] MEDS: ATORVASTATIN 10 MG TABLET PO SCH (10:14)
[2021-06-20] MEDS: LOSARTAN 50 MG TABLET PO SCH (10:15)
[2021-06-20] MEDS: DILTIAZEM 180 MG CAP.XL.24H PO SCH (10:15)
[2021-06-20] MEDS: TORSEMIDE 10 MG TABLET PO SCH (10:15)
[2021-06-20] MEDS: APIXABAN 5 MG TABLET PO SCH ×2 (10:15→21:22)
--- NOTE | 2021-06-20 12:53 | XRay Report ---
CLINICAL INFORMATION: abd pain COMPARISON: 10/26/2018 FINDINGS: The visualized chest shows moderate consolidated atelectasis in the left medial base-retrocardiac region. This is new from the prior exam. Moderate cardiomegaly with mitral annular calcification again noted. There are small bilateral pleural effusions. The stool gas pattern is unremarkable. There is no free air, soft tissue mass, organomegaly or pathologic calcification. IMPRESSION: Abdomen is unremarkable. Moderate consolidated atelectasis left medial base. Moderate cardiomegaly and small effusions noted. Recent CHF acknowledged Interpreted and Authenticated by: Jarrod Shukla 06/20/21
[2021-06-21] MEDS: 0.9 % SODIUM CHLORIDE 10 ML SYRINGE IV SCH (06:06)
[2021-06-21] MEDS: DOCUSATE SODIUM 100 MG CAPSULE PO SCH (08:53)
[2021-06-21] MEDS: cefTRIAXone 2 GM in DEXTROSE 5% IN WATER 50 ML IV SCH (08:53)
[2021-06-21] MEDS: APIXABAN 5 MG TABLET PO SCH (08:53)
[2021-06-21] MEDS: ATORVASTATIN 10 MG TABLET PO SCH (08:54)
[2021-06-21] MEDS: DILTIAZEM 180 MG CAP.XL.24H PO SCH (08:54)
[2021-06-21] MEDS: LOSARTAN 50 MG TABLET PO SCH (08:55)
[2021-06-21] MEDS: SODIUM CHLORIDE 1 GM TABLET PO SCH (08:55)
[2021-06-21] MEDS: hydrALAZINE 25 MG TABLET PO SCH (08:55)
[2021-06-21] MEDS: TORSEMIDE 10 MG TABLET PO SCH (08:55)
--- NOTE | 2021-06-21 11:38 | Discharge Summary ---
Discharge Provider Provider Patient information: Note initiated : 06/21/21 at 11:35 am Service Date, if different from initiated Date: [] Patient: Lionel Knapp 86 y/o F admitted on 06/16/21 for abdominal pain. Chief Complaint: [] Date of admission: 06/16/21 23:37 Discharge date: 06/21/21 Primary care physician: Jose Jarquin MD Consults: 06/16/21 Consult to Physician [CONS] Stat Comment: Consulting Provider: Avi Simmons Reason For Exam: Physician to Consult Discharge Meds Discharge Medications Home Medications multivitamin 1 tab PO QDAY tab 02/03/15 [History Confirmed 06/17/21 Last Taken Unknown] glucosamine HCl 1,500 mg tablet 1,500 mg PO QDAY 07/20/17 [History Confirmed 06/17/21 Last Taken Unknown] flaxseed oil 1,000 mg capsule 1,000 mg PO QDAY 11/16/17 [History Confirmed 06/17/21 Last Taken Unknown] apixaban 5 mg tablet (Eliquis) 5 mg PO BID 12/26/18 [History Confirmed 06/17/21 Last Taken Unknown] diltiazem HCl 360 mg capsule,extended release 24 hr 360 mg PO QDAY #90 cap 05/26/20 [Rx Confirmed 06/17/21 Last Taken Unknown] fexofenadine 180 mg tablet (Radha Allergy) 180 mg PO QDAY 09/04/20 [History Confirmed 06/17/21 Last Taken Unknown] B/L knee high compression garments (15-20 mmHg) #1 ea 12/31/20 [Rx Confirmed 06/17/21 Last Taken Unknown] hydralazine 25 mg tablet 25 mg PO TID #270 tab 03/30/21 [Rx Confirmed 06/17/21 Last Taken Unknown] rosuvastatin 5 mg tablet 5 mg PO QDAY #90 tab 03/30/21 [Rx Confirmed 06/17/21 Last Taken Unknown] valsartan 160 mg tablet 160 mg PO DAILY 06/17/21 [History Confirmed 06/17/21 Last Taken Unknown] torsemide 10 mg tablet 20 mg PO DAILY #30 tab 06/18/21 [Rx Last Taken Unknown] sodium chloride 1 gram tablet 1,000 mg PO TID 14 Days #42 tab 06/21/21 [Rx Last Taken Unknown] COURSE Hospital Course Hospital course: Discharge diagnosis * 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 Continue fluid restriction. Salt tabs for 2 weeks. Recommend repeat BMP in 2 weeks * Nausea/abdominal discomfort persistent. Negative abdominal exam. Symptoms resolved * Acute decompensated diastolic heart failure with valvular disease -currently well compensated.Continue diuretics/beta-lisa/hydralazine/ARB. Echo diastolic grade 3 dysfunction, mildly reduced RV systolic function, severe biatrial dilation, mod-sev MR/TR, mod pulm HTN. * Community-acquired pneumonia clinically resolved * Chronic A. fib on rate controlled on Cardizem, CVA prophylaxis on Eliquis * h/o CEA and KARLA: was on Plavix in past, has followed with Dr. Pack * CKD III: Follows with Dr. Black * HTN: on hydralazine/torsemide/ARB/dilt * Gen weak: Continue PT OT brief hospital course Presents the ED with a abdominal pain describes an upset stomach and nausea and generalized weakness. She was diagnosed with a UTI last or Monday. And it seems that since that time she has had increased nausea and weakness. She was prescribed Macrobid on the by urgent care provider. 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 She was also noted to be mildly hypoxic and her family member feels she is had a postnasal drip cough and states she breathes a little bit differently lately. Although she does not complain of shortness of breath. She does complain of upset stomach and the nausea nothing else really. No change in her bowels. No vomiting. Denies any recent medication changes other than the antibiotic recently started. 06/17 No overnight event or new complaints. Nausea improving. On minimal oxygen requirement. Sodium slowly coming up as expected slowly. Mild cough and denies shortness of breath 06/18 Patient feels tired and weak today. On 1 L nasal cannula, improved. CRP and procalcitonin improved. Echo pending 06/19 No overnight event or new complaints. Patient has some cough, denies shortness of breath at rest. Legs have no edema anymore. Sodium 127. salt tabs started yesterday, will start fluid restrict today. 06/20-patient doing well however feels queasy with abdominal d iscomfort/gurgling. Diarrhea has improved. Denies fever, chest pain, lightheadedness or dizziness but just does not feel back to baseline. Continue Eliquis for A. fib, blood pressures 160s, sodium 127, creatinine 1.1 06/21-patient doing well. No overnight events. Currently on 1 L oxygen. Discharging to SNF for continued posthospitalization rehab. Discharge diagnosis: . Time Spent with Patient Time attestation: Total time spent providing and/or coordinating discharge services: EXAM Constitutional Vitals: Temp Pulse Resp BP Pulse Ox 97.2 F 66 20 149/60 92 06/21/21 07:14 06/21/21 07:14 06/21/21 07:14 06/21/21 07:14 06/21/21 08:00 Discharge Plan Patient/Caregiver Discharge Instructions Activity: increase activity as tolerated Diet: Regular Diet Activity Restrictions/Additional Instructions: Referral to see cardiology in 3 to 14 days for heart failure and valvular heart disease. Prescriptions: New sodium chloride 1 gram Tablet 1,000 mg PO TID 14 Days Qty: 42 0RF Continued diltiazem HCl 360 mg capsule,extended release 24hr 360 mg PO QDAY Qty: 90 4RF hydralazine 25 mg tablet 25 mg PO TID Qty: 270 1RF rosuvastatin 5 mg tablet 5 mg PO QDAY Qty: 90 0RF multivitamin tablet 1 tab PO QDAY 0RF fexofenadine [Radha Allergy] 180 mg tablet 180 mg PO QDAY 0RF (DME) B/L knee high compression garments (15-20 mmHg) See Rx Instructions .Route .MEDSUPPLY Qty: 1 0RF Rx Instructions: As directed glucosamine HCl 1,500 mg tablet 1,500 mg PO QDAY 0RF flaxseed oil 1,000 mg capsule 1,000 mg PO QDAY 0RF Eliquis 5 mg tablet 5 mg PO BID 0RF valsartan 160 mg tablet 160 mg PO DAILY 0RF Changed torsemide 10 mg tablet 20 mg PO DAILY Qty: 30 0RF Other Ambulatory Orders: Basic Metabolic Panel (Routine) Timeframe: 3 Days Facility: [facility] - Location: Laboratory Ordered By: Avi Simmons Follow Up Plan Follow up with: Jose Jarquin MD [Primary Care Provider] - Patient Disposition: Xfer SNF Prognosis: Fair Rehab Potential: Fair I certify that the patient requires SNF services: Yes Overall status at discharge: patient is progressing back to baseline Discharge Orders: Discharge Order (Routine); Ordered 06/21/21 Ordered By: Brian GARCIA VTE Deep Vein Thrombosis/Pulmonary Embolism Present on Admission: No
== END 2021-06-21 13:15 | DRG 640 ==
LOC: ED 19:28 → ICU 23:37 → MEDSUR 06-20 16:20
PROVIDERS: ADMIT Internal Medicine; ATTEND Internal Medicine

== ENCOUNTER 2021-07-29 11:37 | Inpatient (IN) ==
--- NOTE | 2021-07-29 12:08 | Emergency Department Note ---
SOB HPI General Chief Complaint: Shortness of Breath/Dyspnea Stated Complaint: short of breath Time Seen by Provider: 07/29/21 11:49 Source: patient Mode of arrival: ambulatory History of Present Illness HPI Narrative: Patient is an 86-year-old lady who arrives emergency department. History is provided by the patient. She says she has been feeling short of breath since last night. Last night, she awoke and started gasping for air. She found that her symptoms got better when she would sit upright. She denies any associated cough fever or chills. She does not have any associated chest pain. She has chronic peripheral edema that she does not think is changed from her baseline. The patient was hospitalized in late May uremia but notes that her symptoms seem to have improved since then. She did recently see a pipe stress engineer who stopped her torsemide and adjusted her Eliquis dosing. Related Data Home Medications Medication Instructions Recorded Confirmed multivitamin 1 tab PO QDAY tab 02/03/15 07/09/21 glucosamine HCl 1,500 mg tablet 1,500 mg PO QDAY 07/20/17 07/09/21 flaxseed oil 1,000 mg capsule 1,000 mg PO QDAY 11/16/17 07/09/21 apixaban 5 mg tablet (Eliquis) 5 mg PO BID 12/26/18 07/09/21 fexofenadine 180 mg tablet 180 mg PO QDAY 09/04/20 07/09/21 (Radha Allergy) valsartan 160 mg tablet 160 mg PO DAILY 06/17/21 07/09/21 Previous Rx's Medication Instructions Recorded diltiazem HCl 360 mg 360 mg PO QDAY #90 cap 05/26/20 capsule,extended release 24 hr B/L knee high compression garments #1 ea 12/31/20 (15-20 mmHg) hydralazine 25 mg tablet 25 mg PO TID #270 tab 03/30/21 rosuvastatin 5 mg tablet 5 mg PO QDAY #90 tab 03/30/21 torsemide 10 mg tablet 20 mg PO DAILY #30 tab 06/18/21 Allergies Allergy/AdvReac Type Severity Reaction Status Date / Time ciprofloxacin [From Cipro] AdvReac Intermediate Delerium Verified 07/09/21 11:21 Cisapride [From Propulsid] AdvReac Mild Diarrhea Verified 07/09/21 11:21 ezetimibe [From Zetia] AdvReac Mild Diarrhea Verified 07/09/21 11:21 loratadine [From Claritin] AdvReac Mild "Funny Verified 07/09/21 11:21 feeling" MRI (stent) AdvReac Severe Other Uncoded 07/09/21 11:21 Review of Systems ROS ROS Narrative: Narrative: All systems ED: reviewed and negative except as stated. Constitutional: Denies fever or chills Gastrointestinal: Denies abdominal pain, nausea, vomiting or diarrhea PFSH Narrative Patient History Narrative: Narrative: Medical/Surgical/Family History All Active Problems (Updated 07/29/21 @ 16:57 by Gary Gilliam DO) Congestive heart failure (CHF) (Acute) Hospital discharge follow-up (Acute) Malaise (Acute) Generalized weakness (Acute) Hyponatremia (Acute) Dehydration (Acute) Acute hyponatremia (Acute) Abdominal pain (Acute) Urinary tract infection (Acute) Low energy (Acute) Bilateral lower extremity edema (Acute) Back pain (Acute) Venous insufficiency (Acute) Hyponatremia (Chronic) Dysuria (Acute) Dysuria (Acute) Chronic kidney disease (CKD) stage G3b/A2, moderately decreased glomerular filtration rate (GFR) between 30-44 mL/min/1.73 square meter and albuminuria creatinine ratio between 30-299 mg/g (Chronic) Cystitis (Acute) Parathyroid related hypercalcemia (Chronic) Hyperparathyroidism (Chronic) Chronic pruritus (Acute) Atopic dermatitis (Acute) History of sinus surgery (Chronic) History of renal stent (Chronic) History of common carotid artery stent placement (Chronic) History of tonsillectomy (Chronic) History of appendectomy (Chronic) History of rotator cuff surgery (Chronic) Rheumatic fever (Chronic) Kidney failure (Chronic) Joint pain (Chronic) Hypercholesterolemia (Chronic) Daytime sleepiness (Chronic) Blood disorder (Chronic) Arthritis (Chronic) Closed left clavicular fracture (Acute) Guaiac positive stools (Acute) Hematoma (Acute) Anticoagulant long-term use (Chronic 10/30/13) Atrial fibrillation (Chronic ~1998) Hypertension (Chronic) Benign hypertension with CKD (chronic kidney disease) stage III (Chronic) History of stent insertion of renal artery (Chronic) Carotid stenosis (Chronic) Postgastric surgery syndrome (Chronic) Microscopic hematuria (Chronic) Weight loss (Chronic) Urinary incontinence (Chronic) Primary small intestine carcinoid tumor (Chronic) Raynauds syndrome (Chronic) Positive RYLAND (antinuclear antibody) (Chronic) Polymyalgia rheumatica (Chronic) Mitral valve regurgitation (Chronic) Meckel's diverticulum (Chronic) Hyperlipidemia (Chronic) Esophagitis (Chronic) Degenerative arthritis (Chronic) Colon polyps (Chronic 11/27/08) Back pain (Chronic) Medical History Anticoagulant long-term use (10/30/13) Arthritis Atrial fibrillation (~1998) Chronic with mitral regurgitation. Coumadin Back pain Back pain Benign hypertension with CKD (chronic kidney disease) stage III Biceps muscle tear Bilateral lower extremity edema Blood disorder Blood thinner Carotid stenosis Chronic pruritus Colon polyps (11/27/08) Hyperplastic Daytime sleepiness Degenerative arthritis Multi joint Dysphagia Slight, on a background of history of esophagitis and Saba's, EGD 2008 Dysuria Dysuria Esophagitis History of, EGD in 11/2008 Fibrocystic disease of breast Mammogram done 09/24/12 History of common carotid artery stent placement History of stent insertion of renal artery Hospital discharge follow-up Hypercholesterolemia Hyperlipidemia Improved with diet treatment; multiple medicine intolerances Hypertension Hypovitaminosis D Joint pain Kidney failure one is gone; one at 27% Low energy Malaise Meckel's diverticulum History of, sequencing through Dr Casanova, last chromogranin level stable in May of 2012 Microscopic hematuria Midepigastric pain Burning; EGD 2008 Migraine with visual aura Mitral valve regurgitation On Coumadin anticoagulation; last echo in October of 2010 with normal ejection fraction and 2+ mitral regurgitation Polymyalgia rheumatica History of, off prednisone in August of 2010 Positive RYLAND (antinuclear antibody) 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 History of, with recent review by Dr Casanova KARLA (renal artery stenosis) Raynauds syndrome Mild positive RYLAND Rheumatic fever Small bowel obstruction 01/2009 Splenic mass septated cyst; stable and benign per US 2017 Urinary incontinence Urinary tract infection UTI (urinary tract infection) Urosepsis - History of urinary incontinence and previous urinary tract i nfection with previous hospitalization for urosepsis, currently stable urine and asymptomatic Venous insufficiency Weight loss Mild weight loss 6-1/2 pounds Surgical History History of appendectomy History of arthroplasty 2004 - Right knee History of colonoscopy (12/16/13) Rectal Polyps, Uncomplicated internal hemorrhoids, Diverticulosis. Performed by Dr. Menjivar History of esophagogastroduodenoscopy (12/18/08) History of hysterectomy for non cancer reason in the distant past History of pelvic surgery 05/2008 - She had surgery for pelvic prolapse History of renal stent History of rotator cuff surgery Both shoulders History of sinus surgery History of tonsillectomy Family History Sister Malignant neoplasm of breast Father Malignant neoplasm of colon Rectal cancer Heart attack Social History Smoking Status: Former smoker Alcohol Intake Frequency: a few times a month Substance Use: does not use Exam Narrative Narrative: I reviewed the vital signs. Gen -patient is awake and alert and in no acute distress. The patient is well groomed. HEENT -head is atraumatic. There is no conjunctival pallor or scleral icterus. Mucous membranes are moist. CV -S1-S2 regular rate and rhythm. Peripheral pulses are palpable. There is no JVD. Resp -breathing is nonlabored. Lungs have mild rales bilaterally. There is no cyanosis. GI - Abdomen is soft and nontender to palpation. There is no guarding or rebound tenderness. Derm -skin is warm and dry. There is no visible rash. MSK -present extremities are atraumatic. There is mild pitting edema bilateral lower extremities. Psych -patient has appropriate affect. The patient does not appear internally stimulated. Neuro -patient answers questions appropriately with fluent speech. Patient moves all present extremities equally. Course Vital Signs Vital signs: Vital Signs Temperature 97.7 F 07/29/21 11:38 Pulse Rate 82 07/29/21 11:38 Respiratory Rate 16 07/29/21 11:38 Blood Pressure 189/72 07/29/21 11:38 Pulse Oximetry (%) 94 07/29/21 11:38 Temperature 97.7 F 07/29/21 11:38 Pulse Rate 70 07/29/21 15:46 Respiratory Rate 23 H 07/29/21 15:46 Blood Pressure 164/59 07/29/21 15:46 Pulse Oximetry (%) 91 07/29/21 15:46 MDM MDM Narrative Medical decision making narrative: Patient presents with shortness of breath. On my initial examination, I personally performed interpreted limited bedside echocardiogram and pulmonary ultrasound. Obtain parasternal long and short axis views. There is no pericardial effusion. Left ventricular ejection fraction is normal. There is no evidence of right ventricular strain. Lung bowman are B-lines predominant bilaterally. Patient's chest x-ray reveals mild vascular congestion. Labs are remarkable for no significant electrolyte derangements and a significantly elevated BNP. Patient's presentation appears consistent with decompensated heart failure. She was given IV furosemide and transdermal nitroglycerin. After period of diuresis, the patient was reassessed. She became significantly short of breath ambulating from the wheelchair to the stretcher after using the restroom and had oxygen saturation of 82% on room air at that time. Given that, I recommended she be admitted for further diuresis and monitoring and she is agreeable. I discussed the patient's history examination and diagnostic findings with Dr. Lawson, who agrees with the plan of care and accepts admission. Lab Data Lab results reviewed: Yes I reviewed the patient's lab results. Result diagrams: 07/29/21 12:17 Labs: Lab Results 07/29/21 07/29/21 07/29/21 Range/Units 12:17 12:17 12:17 WBC 5.8 (4.5-11.0) K/mcL RBC 3.66 (3.59-5.38) M/mcL Hgb 11.1 L (11.2-15.7) g/dL Hct 33.7 L (34.1-44.9) % POC Hct 35 L (36-48) % MCV 92.1 (80.0-100.0) fL MCH 30.3 (26.0-34.0) pg MCHC 32.9 (31.0-36.0) g/dL RDW 16.4 H (11.5-14.5) % Plt Count 143 (140-440) K/mcL MPV 11.1 H (7.4-10.4) fL Neut % (Auto) 80.0 H (38.0-78.0) % Lymph % (Auto) 12.8 L (15.5-49.0) % [place] % (Auto) 6.0 (1.0-12.0) % Eos % (Auto) 0.3 (0.0-7.0) % Baso % (Auto) 0.9 (0.0-2.0) % Lymph # (Auto) 0.74 L (1.50-4.80) K/mcL [place] # (Auto) 0.35 (0.10-0.90) K/mcL Eos # (Auto) 0.02 (0.00-0.70) K/mcL Baso # (Auto) 0.05 (0.00-0.30) K/mcL Absolute Neutrophils 4.64 (1.80-8.00) K/mcL POC Sodium 139 (133-145) mEq/L POC Potassium 4.3 (3.3-5.1) mEql/L POC Chloride 105 (96-108) mEq/L POC Total CO2 22 (22-30) mmol/L POC BUN 19 (6-20) mg/dL POC Creatinine 1.1 (0.6-1.2) mg/dL POC Glucose 96 (70-105) mg/dL POC WB Ioniz Calcium 1.28 (1.16-1.32) mmEq/L Troponin T < 0.01 (<0.03) ng/mL NT-Pro-B Natriuret Pep 4572.0 H (<450.0) pg/mL EKG Data EKG #1: EKG attestation: Yes I reviewed and interpreted this EKG. EKG results narrative: EKG performed at 12:12 PM: Atrial fibrillation, rate 74. There are Q waves present in V1 through V3. No ST segment deviation. T waves are biphasic in V2 through V5. Normal QRS and QTc duration. No significant changes compared to June 12, 2021. EKG was interpreted by me. Discharge Plan Patient/Caregiver Discharge Instructions Pt seen by USABILITY ARCHITECT/PA only: No Clinical Impression: Congestive heart failure (CHF) Patient Disposition: Xfer As Inpt ([facility]) Condition: Fair Follow up with: Jose Jarquin MD [Primary Care Provider] - Prescriptions: No Action diltiazem HCl 360 mg capsule,extended release 24hr 360 mg PO QDAY Qty: 90 4RF hydralazine 25 mg tablet 25 mg PO TID Qty: 270 1RF rosuvastatin 5 mg tablet 5 mg PO QDAY Qty: 90 0RF multivitamin tablet 1 tab PO QDAY 0RF fexofenadine [Radha Allergy] 180 mg tablet 180 mg PO QDAY 0RF (DME) B/L knee high compression garments (15-20 mmHg) See Rx Instructions .Route .MEDSUPPLY Qty: 1 0RF Rx Instructions: As directed glucosamine HCl 1,500 mg tablet 1,500 mg PO QDAY 0RF flaxseed oil 1,000 mg capsule 1,000 mg PO QDAY 0RF Eliquis 5 mg tablet 5 mg PO BID 0RF valsartan 160 mg tablet 160 mg PO DAILY 0RF torsemide 10 mg tablet 20 mg PO DAILY Qty: 30 0RF
[2021-07-29 12:36] LABS: POC Blood Urea Nitrogen 19 mg/dL (6-20); POC CO2 22 mmol/L (22-30); POC Calcium, Ionized 1.28 mmEq/L (1.16-1.32); POC Chloride 105 mEq/L (96-108); POC Creatinine 1.1 mg/dL (0.6-1.2); POC Glucose, Random 96 mg/dL (70-105); POC Hematocrit 35 % (36-48); POC Potassium 4.3 mEql/L (3.3-5.1); POC Sodium 139 mEq/L (133-145)
--- NOTE | 2021-07-29 12:55 | XRay Report ---
CLINICAL INFORMATION: Shortness of breath COMPARISON: 06/18/2021 TECHNIQUE: PA and Lateral views FINDINGS: Moderate cardiomegaly is unchanged. Mediastinum is unremarkable. Pulmonary vessels are mildly distended, but no definite edema. Small bilateral pleural effusions noted. Bibasilar infiltrates or atelectasis have nearly cleared since previous exam with only minimal residual. IMPRESSION: Mild CHF. Interpreted and Authenticated by: Jarrod Shukla 07/29/21
[2021-07-29 13:17] LABS: Basophils # (Auto) 0.05 K/mcL (0.00-0.30); Basophils % (Auto) 0.9 % (0.0-2.0); Eosinophils # (Auto) 0.02 K/mcL (0.00-0.70); Eosinophils % (Auto) 0.3 % (0.0-7.0); Hematocrit 33.7 % (34.1-44.9); Hemoglobin 11.1 g/dL (11.2-15.7); Lymphocytes # (Auto) 0.74 K/mcL (1.50-4.80); Lymphocytes % (Auto) 12.8 % (15.5-49.0); Mean Cell Volume 92.1 fL (80.0-100.0); Mean Corpuscular HGB Conc 32.9 g/dL (31.0-36.0); Mean Platelet Volume 11.1 fL (7.4-10.4); Monocytes # (Auto) 0.35 K/mcL (0.10-0.90); Platelet Count 143 K/mcL (140-440); RBC 3.66 M/mcL (3.59-5.38); Red Cell Distribution Width 16.4 % (11.5-14.5); WBC 5.8 K/mcL (4.5-11.0)
[2021-07-29] MEDS ORDERED: FUROSEMIDE 40 MG/4 ML VIAL IV ONE (14:31)
[2021-07-29] MEDS ORDERED: NITROGLYCERIN 1 GM OINT.TOP TD ONE (14:31)
--- NOTE | 2021-07-29 17:37 | Internal Med History&Physical ---
HPI History of Present Illness Patient information: Note initiated : 07/29/21 at 5:21 pm Service Date, if different from initiated Date: [] Patient: Lionel Knapp a 86 y/o F admitted on for short of breath. Chief Complaint: [] Chief complaint: shortness of breath History of present illness: Ms. Knapp is a 86 year old F history of atrial fibrillation, mixed dyslipidemia, chronic kidney disease III, CHF, p/w 1 day history of shortness of breath. She was seen by gaming surveillance observer for first time Dr. Hilliard about a week ago, when Torsemide was discontinued and dosage of Eliquis was modified. Last night she woke up from sleep with shortness of breath. she also c/o mild right sided chest pain. Denies any cough or sputum production. Denies wheezing. Denies fever, chills, or sweating. Orthopnea baseline 2 pillow, now on recliner. Baseline physical activity was 100ft now less than 10ft. Denies any unintentional weight gain. Denies any increased legs swelling. She was brought by her son to our ED for further evaluation. Vital signs significant for mild tachypnea with RR to the mid 20s bpm, rest of the VS within normal limits. Labs significant for serum Cr level 1.1, at her baseline. BNP 4572. Troponin-i <0.01. CXR showed mild CHF. Constitutional Constitutional: Absent chills, excessive sweating, fatigue, fever(s) or weakness EENT Eyes: Absent blurry vision, change in vision, loss of vision or other visual disturbances Ears: Absent decreased hearing or tinnitus Nose, mouth and throat: Absent abnormal hearing, dry mouth, headache(s), nasal congestion or sore throat Cardiovascular Cardiovascular: Absent chest pain, chest pain at rest, edema, irregular heart rhythm or palpatations Respiratory Respiratory: Present dyspnea and dyspnea on exertion; Absent cough or wheezing Gastrointestinal Gastrointestinal: Absent abdominal pain, constipation, diarrhea, nausea or vomiting Musculoskeletal Musculoskeletal: Absent back pain, deformity, limited range of motion, muscle cramps, muscle weakness or numbness Integumentary Integumentary: Absent lesions, rash or wounds Neurological Neurological: Absent focal weakness, headache(s) or numbness Psychiatric Psychiatric: Absent anxiety, depression or hallucinations PFSH PFSH All Active Problems (Updated 07/29/21 @ 17:35 by Keith Lawson MD) Anemia of chronic renal failure, stage 3 (moderate) (Acute) Mixed dyslipidemia (Acute) Acute exacerbation of CHF (congestive heart failure) (Acute) Congestive heart failure (CHF) (Acute) Hospital discharge follow-up (Acute) Malaise (Acute) Generalized weakness (Acute) Hyponatremia (Acute) Dehydration (Acute) Acute hyponatremia (Acute) Abdominal pain (Acute) Urinary tract infection (Acute) Low energy (Acute) Bilateral lower extremity edema (Acute) Back pain (Acute) Venous insufficiency (Acute) Hyponatremia (Chronic) Dysuria (Acute) Dysuria (Acute) Chronic kidney disease (CKD) stage G3b/A2, moderately decreased glomerular filtration rate (GFR) between 30-44 mL/min/1.73 square meter and albuminuria creatinine ratio between 30-299 mg/g (Chronic) Cystitis (Acute) Parathyroid related hypercalcemia (Chronic) Hyperparathyroidism (Chronic) Chronic pruritus (Acute) Atopic dermatitis (Acute) History of sinus surgery (Chronic) History of renal stent (Chronic) History of common carotid artery stent placement (Chronic) History of tonsillectomy (Chronic) History of appendectomy (Chronic) History of rotator cuff surgery (Chronic) Rheumatic fever (Chronic) Kidney failure (Chronic) Joint pain (Chronic) Hypercholesterolemia (Chronic) Daytime sleepiness (Chronic) Blood disorder (Chronic) Arthritis (Chronic) Closed left clavicular fracture (Acute) Guaiac positive stools (Acute) Hematoma (Acute) Anticoagulant long-term use (Chronic 10/30/13) Atrial fibrillation (Chronic ~1998) Hypertension (Chronic) Benign hypertension with CKD (chronic kidney disease) stage III (Chronic) History of stent insertion of renal artery (Chronic) Carotid stenosis (Chronic) Postgastric surgery syndrome (Chronic) Microscopic hematuria (Chronic) Weight loss (Chronic) Urinary incontinence (Chronic) Primary small intestine carcinoid tumor (Chronic) Raynauds syndrome (Chronic) Positive RYLAND (antinuclear antibody) (Chronic) Polymyalgia rheumatica (Chronic) Mitral valve regurgitation (Chronic) Meckel's diverticulum (Chronic) Hyperlipidemia (Chronic) Esophagitis (Chronic) Degenerative arthritis (Chronic) Colon polyps (Chronic 11/27/08) Back pain (Chronic) Medical History Anticoagulant long-term use (10/30/13) Arthritis Atrial fibrillation (~1998) Chronic with mitral regurgitation. Coumadin Back pain Back pain Benign hypertension with CKD (chronic kidney disease) stage III Biceps muscle tear Bilateral lower extremity edema Blood disorder Blood thinner Carotid stenosis Chronic pruritus Colon polyps (11/27/08) Hyperplastic Daytime sleepiness Degenerative arthritis Multi joint Dysphagia Slight, on a background of history of esophagitis and Saba's, EGD 2008 Dysuria Dysuria Esophagitis History of, EGD in 11/2008 Fibrocystic disease of breast Mammogram done 09/24/12 History of common carotid artery stent placement History of stent insertion of renal artery Hospital discharge follow-up Hypercholesterolemia Hyperlipidemia Improved with diet treatment; multiple medicine intolerances Hypertension Hypovitaminosis D Joint pain Kidney failure one is gone; one at 27% Low energy Malaise Meckel's diverticulum History of, sequencing through Dr Casanova, last chromogranin level stable in May of 2012 Microscopic hematuria Midepigastric pain Burning; EGD 2008 Migraine with visual aura Mitral valve regurgitation On Coumadin anticoagulation; last echo in October of 2010 with normal ejection fraction and 2+ mitral regurgitation Polymyalgia rheumatica History of, off prednisone in August of 2010 Positive RYLAND (antinuclear antibody) 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 History of, with recent review by Dr Casanova KARLA (renal artery stenosis) Raynauds syndrome Mild positive RYLAND Rheumatic fever Small bowel obstruction 01/2009 Splenic mass septated cyst; stable and benign per US 2017 Urinary incontinence Urinary tract infection UTI (urinary tract infection) Urosepsis - History of urinary incontinence and previous urinary tract infection with previous hospitalization for urosepsis, currently stable urine and asymptomatic Venous insufficiency Weight loss Mild weight loss 6-1/2 pounds Surgical History History of appendectomy History of arthroplasty 2004 - Right knee History of colonoscopy (12/16/13) Rectal Polyps, Uncomplicated internal hemorrhoids, Diverticulosis. Performed by Dr. Menjivar History of esophagogastroduodenoscopy (12/18/08) History of hysterectomy for non cancer reason in the distant past History of pelvic surgery 05/2008 - She had surgery for pelvic prolapse History of renal stent History of rotator cuff surgery Both shoulders History of sinus surgery History of tonsillectomy Family History Sister Malignant neoplasm of breast Father Malignant neoplasm of colon Rectal cancer Heart attack Social History marital status: occupational status: retired smoking status: Former smoker quit date: 09/02/1962 pack-years: 5 alcohol intake frequency: a few times a month substance use type: does not use MEDS/ALLERGIES Home Medications and Allergies Home Medications Medication Instructions Recorded Confirmed Type multivitamin 1 tab PO QDAY tab 02/03/15 07/09/21 History glucosamine HCl 1,500 mg tablet 1,500 mg PO QDAY 07/20/17 07/09/21 History flaxseed oil 1,000 mg capsule 1,000 mg PO QDAY 11/16/17 07/09/21 History apixaban 5 mg tablet (Eliquis) 5 mg PO BID 12/26/18 07/09/21 History diltiazem HCl 360 mg 360 mg PO QDAY #90 cap 05/26/20 07/09/21 Rx capsule,extended release 24 hr fexofenadine 180 mg tablet 180 mg PO QDAY 09/04/20 07/09/21 History (Radha Allergy) B/L knee high compression garments #1 ea 12/31/20 07/09/21 Rx (15-20 mmHg) hydralazine 25 mg tablet 25 mg PO TID #270 tab 03/30/21 07/09/21 Rx rosuvastatin 5 mg tablet 5 mg PO QDAY #90 tab 03/30/21 07/09/21 Rx valsartan 160 mg tablet 160 mg PO DAILY 06/17/21 07/09/21 History torsemide 10 mg tablet 20 mg PO DAILY #30 tab 06/18/21 07/09/21 Rx Allergies Allergy/AdvReac Type Severity Reaction Status Date / Time ciprofloxacin [From Cipro] AdvReac Intermediate Delerium Verified 07/09/21 11:21 Cisapride [From Propulsid] AdvReac Mild Diarrhea Verified 07/09/21 11:21 ezetimibe [From Zetia] AdvReac Mild Diarrhea Verified 07/09/21 11:21 loratadine [From Claritin] AdvReac Mild "Funny Verified 07/09/21 11:21 feeling" MRI (stent) AdvReac Severe Other Uncoded 07/09/21 11:21 EXAM Constitutional Vitals: Temp Pulse Resp BP Pulse Ox 36.5 C 70 23 H 164/59 91 07/29/21 11:38 07/29/21 15:46 07/29/21 15:46 07/29/21 15:46 07/29/21 15:46 General appearance: cooperative and no acute distress Head Head exam: Present atraumatic and normocephalic Eye Eye exam: Present EOMI and PERRL ENT ENT exam: Present mucous membranes moist and normal external ear exam; Absent normal exam Additional comments: bilateral decreased hearing Neck Neck exam: Present normal inspection; Absent lymphadenopathy, tenderness or thyromegaly Respiratory Respiratory exam: Present rhonchi; Absent accessory muscle use, respiratory distress or wheezes Cardiovascular Cardiovascular exam: Present normal rate and rhythm; Absent JVD GI/Abdominal GI/Abdominal exam: Present normal bowel sounds and soft; Absent organomegaly or tenderness Extremities Exam Extremities exam: Present full ROM, normal capillary refill, normal inspection and pedal edema; Absent tenderness Neurological Exam Neurological exam: Present alert, CN II-XII intact and oriented X3; Absent motor sensory deficit Psychiatric Psychiatric exam: Present normal affect and normal mood; Absent anxious or depressed Skin Skin exam: Present dry and intact DATA Data Completed and Pending Labs: Labs from last 24 hours 07/29/21 07/29/21 07/29/21 12:17 12:17 12:17 WBC 5.8 RBC 3.66 Hgb 11.1 L Hct 33.7 L POC Hct 35 L MCV 92.1 MCH 30.3 MCHC 32.9 RDW 16.4 H Plt Count 143 MPV 11.1 H Neut % (Auto) 80.0 H Lymph % (Auto) 12.8 L Warrick % (Auto) 6.0 Eos % (Auto) 0.3 Baso % (Auto) 0.9 Lymph # (Auto) 0.74 L Warrick # (Auto) 0.35 Eos # (Auto) 0.02 Baso # (Auto) 0.05 Absolute Neutrophils 4.64 POC Sodium 139 POC Potassium 4.3 POC Chloride 105 POC Total CO2 22 POC BUN 19 POC Creatinine 1.1 POC Glucose 96 POC WB Ioniz Calcium 1.28 Troponin T < 0.01 NT-Pro-B Natriuret Pep 4572.0 H A/P Assessment and plan (1) Acute exacerbation of CHF (congestive heart failure): Status: Acute (2) Atrial fibrillation: Status: Chronic Comment: Chronic with mitral regurgitation. Coumadin Qualifiers: Atrial fibrillation type: unspecified Qualified Code(s): I48.91 - Unspecified atrial fibrillation (3) Anticoagulant long-term use: Status: Chronic (4) Benign hypertension with CKD (chronic kidney disease) stage III: Status: Chronic (5) Chronic kidney disease (CKD) stage G3b/A2, moderately decreased glomerular filtration rate (GFR) between 30-44 mL/min/1.73 square meter and albuminuria creatinine ratio between 30-299 mg/g: Status: Chronic (6) Hypertension: Status: Chronic Qualifiers: Hypertension type: essential hypertension Qualified Code(s): I10 - Essential (primary) hypertension (7) Mixed dyslipidemia: Status: Acute (8) Anemia of chronic renal failure, stage 3 (moderate): Status: Acute Narrative A/P Narrative: Assessment and Plan: 1. Exacerbation of CHF: Admit to outpatient med surg telemetry Supplemental oxygen therapy titrate to achieve spo2>=92%, currently on room air STRICT intake and output Daily weigh 2L/day fluid restriction Lasix 40mg IV BID No beta lisa during exacerbation Valsartan 2D echocardiogram Physical therapy Occupational therapy 2. Permanent atrial fibrillation: Diltiazem Eliquis 3. Essential HTN and anemia associated with CKDIII: Avoid nephrotoxic agents Diltiazem Valsartan CMP and cbc w/ auto diff in AM to trend H/H and kidney functions 4.Mixed dyslipidemia: Statin GI ppx: not currently indicated DVT ppx: Eliquis Code status: full Prognosis: stable Disposition: observation med surg Time Spent With Patient Time: Total time spent is greater than 50% in coordination of care (as documented) at patient's floor/unit and/or counseling patient: Total time spent with greater than 50% in coordination of care (as documented) at patient's floor/unit and/or counseling patient:: Greater than 35 minutes
[2021-07-29] MEDS ORDERED: ONDANSETRON 4 MG/2 ML VIAL IV PRN (18:44)
[2021-07-29] MEDS ORDERED: ACETAMINOPHEN 325 MG TABLET PO PRN (18:44)
[2021-07-29] MEDS ORDERED: traZODone HCL 50 MG TABLET PO PRN (18:44)
[2021-07-29] MEDS ORDERED: IPRATROPIUM/ALBUTEROL 3 ML AMPUL.NEB NEB PRN (18:44)
[2021-07-29] MEDS: hydrALAZINE 25 MG TABLET PO SCH (21:25)
[2021-07-29] MEDS: APIXABAN 5 MG TABLET PO SCH (21:25)
[2021-07-29] MEDS: SENNOSIDES 1 TABLET PO SCH (21:26)
[2021-07-29] MEDS: DOCUSATE SODIUM 100 MG CAPSULE PO SCH (21:26)
[2021-07-29] MEDS: 0.9 % SODIUM CHLORIDE 10 ML SYRINGE IV SCH (21:27)
[2021-07-30] MEDS: 0.9 % SODIUM CHLORIDE 10 ML SYRINGE IV SCH ×3 (04:56→20:52)
[2021-07-30 06:50] LABS: Basophils # (Auto) 0.05 K/mcL (0.00-0.30); Basophils % (Auto) 0.9 % (0.0-2.0); Eosinophils # (Auto) 0.16 K/mcL (0.00-0.70); Eosinophils % (Auto) 2.7 % (0.0-7.0); Hematocrit 35.3 % (34.1-44.9); Hemoglobin 11.8 g/dL (11.2-15.7); Lymphocytes # (Auto) 1.68 K/mcL (1.50-4.80); Lymphocytes % (Auto) 28.8 % (15.5-49.0); Mean Corpuscular HGB Conc 33.4 g/dL (31.0-36.0); Mean Platelet Volume 10.9 fL (7.4-10.4); Monocytes # (Auto) 0.62 K/mcL (0.10-0.90); Monocytes % (Auto) 10.6 % (1.0-12.0); Platelet Count 163 K/mcL (140-440); RBC 3.88 M/mcL (3.59-5.38); Red Cell Distribution Width 16.5 % (11.5-14.5); WBC 5.8 K/mcL (4.5-11.0)
[2021-07-30 07:13] LABS: ALT/SGPT 31 U/L (<40); AST/SGOT 31 U/L (<32); Albumin 3.9 gm/dL (3.2-5.2); Albumin/Globulin Ratio 1.2 (1.0-2.3); Alkaline Phosphatase 69 U/L (39-117); Bilirubin,Total 0.5 mg/dL (0.1-1.0); Blood Urea Nitrogen 19 mg/dL (8-23); Calcium 9.2 mg/dL (8.6-10.4); Carbon Dioxide 26 mmol/L (22-30); Chloride 101 mmol/L (96-108); Globulin 3.3 gm/dL (2.2-3.7); Glomerular Filtration Rate 45; Glucose 76 mg/dL (70-105); Phosphorous 3.4 mg/dL (2.5-4.5)
[2021-07-30] MEDS ORDERED: FUROSEMIDE 40 MG/4 ML VIAL IV SCH (08:00)
[2021-07-30] MEDS: GLUCOSAMINE/CHONDROITIN SULF A 1 CAP CAPSULE PO SCH (08:18)
[2021-07-30] MEDS: FEXOFENADINE 180 MG TABLET PO SCH (08:18)
[2021-07-30] MEDS: APIXABAN 5 MG TABLET PO SCH ×2 (08:19→20:52)
[2021-07-30] MEDS: LOSARTAN 50 MG TABLET PO SCH (08:19)
[2021-07-30] MEDS: FISH OIL 1,000 MG CAPSULE PO SCH (08:19)
[2021-07-30] MEDS: DILTIAZEM 180 MG CAP.XL.24H PO SCH (08:19)
[2021-07-30] MEDS: hydrALAZINE 25 MG TABLET PO SCH ×3 (08:19→20:52)
[2021-07-30] MEDS: MULTIVIT,THER IRON,CA,FA & MIN 1 TABLET PO SCH (08:19)
[2021-07-30] MEDS: ATORVASTATIN 10 MG TABLET PO SCH (08:19)
[2021-07-30] MEDS: DOCUSATE SODIUM 100 MG CAPSULE PO SCH ×2 (08:23→20:52)
--- NOTE | 2021-07-30 11:13 | Internal Med Progress Note ---
SUBJECTIVE Subjective Patient information: Note initiated : 07/30/21 at 11:09 am Service Date, if different from initiated Date: [] Patient: Lionel Knapp 86 y/o F admitted on 07/29/21 for short of breath. Chief Complaint: [] Interval history: Ms. Knapp is a 86 year old F history of atrial fibrillation, mixed dyslipidemia, chronic kidney disease III, CHF, p/w 1 day history of shortness of breath. She was seen by correctional counselor for first time Dr. Hilliard about a week ago, when Torsemide was discontinued and dosage of Eliquis was modified. Last night she woke up from sleep with shortness of breath. she also c/o mild right sided chest pain. Denies any cough or sputum production. Denies wheezing. Denies fever, chills, or sweating. Orthopnea baseline 2 pillow, now on recliner. Baseline physical activity was 100ft now less than 10ft. Denies any unintentional weight gain. Denies any increased legs swelling. She was brought by her son to our ED for further evaluation. Vital signs significant for mild tachypnea with RR to the mid 20s bpm, rest of the VS within normal limits. Labs significant for serum Cr level 1.1, at her baseline. BNP 4572. Troponin-i <0.01. CXR showed mild CHF. 07/30: Been on room air. Afebrile overnight. Improving degree of shortness of breath. c/o nonproductive cough. Denies sputum production or wheezing. Denies chest pain. Denies fever, chills, or sweating. Denies legs swelling. Improving overall strength. Lasix IV-->PO. Constitutional Vitals: Vital Signs Temp Pulse Resp BP Pulse Ox 36.2 C 51 L 16 142/64 93 07/30/21 07:12 07/30/21 07:12 07/30/21 07:12 07/30/21 07:12 07/30/21 07:12 Period Temp Pulse Resp BP Sys/Mcintosh Pulse Ox Last 24 Hr 36.2 C-37.4 C 44-82 16-25 120-189/51-77 82-94 Intake and Output 07/29/21 07/30/21 07/30/21 21:59 05:59 13:59 Intake Total 400 240 Output Total 700 1450 400 Balance -700 -1050 -160 Weight 56.245 kg Intake & Output: Intake & Output 07/29/21 07/30/21 07/30/21 21:59 05:59 13:59 Intake Total 400 240 Output Total 700 1450 400 Balance -700 -1050 -160 Weight 56.245 kg Intake: Oral 400 240 Output: Void Amount 700 1450 400 Other: Meal Breakfast Percent of Meal Consumed 100% Urine Appearance Clear Clear Clear Urine Color Pale Bright Yellow Bright Yellow Urine Odor Normal Stool Size Moderate Stool Color Brown Green Stool Consistency Soft # Voids 1 1 # Bowel Movements 1 1 General appearance: average body habitus, cooperative and no acute distress Head Head exam: Present atraumatic and normal inspection Eye Eye exam: Present normal appearance ENT ENT exam: Present mucous membranes moist, normal exam and normal external ear exam Neck Neck exam: Present normal inspection Respiratory Respiratory exam: Present normal respiratory exam Cardiovascular Cardiovascular exam: Present irregular rhythm GI/Abdominal GI/Abdominal exam: Present normal bowel sounds Back Exam Back exam: Present normal inspection Neurological Exam Neurological exam: Present alert and oriented X3 Skin Skin exam: Present intact and warm OBJ DATA Labs CBC & Chem 7: 07/30/21 05:27 07/30/21 05:27 Labs: Abnormal Lab Results 07/30/21 07/29/21 07/29/21 05:27 12:17 12:17 Hgb 11.1 L Hct 33.7 L POC Hct 35 L RDW 16.5 H 16.4 H MPV 10.9 H 11.1 H Neut % (Auto) 80.0 H Lymph % (Auto) 12.8 L Lymph # (Auto) 0.74 L NT-Pro-B Natriuret Pep 4572.0 H Meds: Medications Acetaminophen (Acetaminophen 325 Mg Tablet) 650 mg PO Q6HP PRN; Protocol PRN Reason: Per Pain Protocol/Fever > 101 Albuterol/Ipratropium (Ipratropium/Albuterol 3 Ml Ampul.Neb) 3 ml NEB Q4HRT PRN PRN Reason: Wheezing Apixaban (Apixaban 5 Mg Tablet) 2.5 mg PO BID [facility] Last Admin: 07/30/21 08:19 Dose: 2.5 mg Documented by: Atorvastatin Calcium (Atorvastatin 10 Mg Tablet) 10 mg PO QDAY [facility] Last Admin: 07/30/21 08:19 Dose: 10 mg Documented by: Diltiazem HCl (Diltiazem 180 Mg Cap.Xl.24h) 360 mg PO DAILY [facility] Last Admin: 07/30/21 08:19 Dose: 360 mg Documented by: Docusate Sodium (Docusate Sodium 100 Mg Capsule) 100 mg PO BID [facility] Last Admin: 07/30/21 08:23 Dose: Not Given Documented by: Fexofenadine HCl (Fexofenadine 180 Mg Tablet) 180 mg PO QDAY [facility] Last Admin: 07/30/21 08:18 Dose: 180 mg Documented by: Fish Oil (Fish Oil 1,000 Mg Capsule) 1,000 mg PO DAILY [facility] Last Admin: 07/30/21 08:19 Dose: 1,000 mg Documented by: Furosemide (Furosemide 40 Mg Tablet) 40 mg PO BIDD [facility] Glucosamine/Chondroitin (Glucosamine/Chondroitin Sulf A 1 Cap Capsule) 1 cap PO DAILY [facility] Last Admin: 07/30/21 08:18 Dose: 1 cap Documented by: Hydralazine HCl (Hydralazine 25 Mg Tablet) 25 mg PO TID [facility] Last Admin: 07/30/21 08:19 Dose: 25 mg Documented by: Iron Carb/Multivit/Jenkins/Folic Acid (Multivit,Ther Iron,Ca,Fa & Min 1 Tablet) 1 tab PO DAILY [facility] Last Admin: 07/30/21 08:19 Dose: 1 tab Documented by: Losartan Potassium (Losartan 50 Mg Tablet) 100 mg PO DAILY [facility] Last Admin: 07/30/21 08:19 Dose: 100 mg Documented by: Ondansetron HCl (Ondansetron 4 Mg/2 Ml Vial) 4 mg IV Q6HP PRN PRN Reason: Nausea And Vomiting Senna (Sennosides 1 Tablet) 2 tab PO HS [facility] Last Admin: 07/29/21 21:26 Dose: Not Given Documented by: Sodium Chloride (0.9 % Sodium Chloride 10 Ml Syringe) 10 ml IV Q8 [facility] Last Admin: 07/30/21 04:56 Dose: 10 ml Documented by: Trazodone HCl (Trazodone Hcl 50 Mg Tablet) 25 mg PO HSP PRN PRN Reason: Insomnia A/P Assessment and plan (1) Acute exacerbation of CHF (congestive heart failure): Status: Acute (2) Atrial fibrillation: Status: Chronic Comment: Chronic with mitral regurgitation. Coumadin Qualifiers: Atrial fibrillation type: unspecified Qualified Code(s): I48.91 - Unspecified atrial fibrillation (3) Anticoagulant long-term use: Status: Chronic (4) Benign hypertension with CKD (chronic kidney disease) stage III: Status: Chronic (5) Chronic kidney disease (CKD) stage G3b/A2, moderately decreased glomerular filtration rate (GFR) between 30-44 mL/min/1.73 square meter and albuminuria creatinine ratio between 30-299 mg/g: Status: Chronic (6) Hypertension: Status: Chronic Qualifiers: Hypertension type: essential hypertension Qualified Code(s): I10 - Essential (primary) hypertension (7) Mixed dyslipidemia: Status: Acute (8) Anemia of chronic renal failure, stage 3 (moderate): Status: Acute Narrative A/P Narrative: Assessment and Plan: 1. Exacerbation of CHF: Stays in outpatient med surg Supplemental oxygen therapy titrate to achieve spo2>=92%, currently on room air STRICT intake and output Daily weigh 2L/day fluid restriction Lasix 40mg IV-->PO BID No beta lisa during exacerbation Valsartan Recent 2D echocardiogram showed grade III diastolic dysfunction, good systolic function with estimated LVEF 60-65% Physical therapy Occupational therapy 2. Permanent atrial fibrillation: Diltiazem Eliquis 3. Essential HTN and anemia associated with CKDIII: Avoid nephrotoxic agents Diltiazem Valsartan CMP and cbc w/ auto diff in AM to trend H/H and kidney functions 4.Mixed dyslipidemia: Statin GI ppx: not currently indicated DVT ppx: Eliquis Code status: full Prognosis: stable Disposition: observation med surg Time Spent With Patient Time: Total time spent is greater than 50% in coordination of care (as documented) at patient's floor/unit and/or counseling patient: Total time spent with greater than 50% in coordination of care (as documented) at patient's floor/unit and/or counseling patient:: Greater than 35 minutes QUALITY VTE Deep Vein Thrombosis/Pulmonary Embolism Present on Admission: No
[2021-07-30] MEDS: FUROSEMIDE 40 MG TABLET PO SCH (15:55)
[2021-07-30] MEDS: SENNOSIDES 1 TABLET PO SCH (20:52)
[2021-07-31] MEDS: 0.9 % SODIUM CHLORIDE 10 ML SYRINGE IV SCH ×3 (04:57→20:07)
[2021-07-31] MEDS: FUROSEMIDE 40 MG TABLET PO SCH (08:57)
[2021-07-31] MEDS: DILTIAZEM 180 MG CAP.XL.24H PO SCH (08:57)
[2021-07-31] MEDS: MULTIVIT,THER IRON,CA,FA & MIN 1 TABLET PO SCH (08:57)
[2021-07-31] MEDS: hydrALAZINE 25 MG TABLET PO SCH ×3 (08:57→20:07)
[2021-07-31] MEDS: FISH OIL 1,000 MG CAPSULE PO SCH (08:57)
[2021-07-31] MEDS: FEXOFENADINE 180 MG TABLET PO SCH (08:57)
[2021-07-31] MEDS: LOSARTAN 50 MG TABLET PO SCH (08:57)
[2021-07-31] MEDS: ATORVASTATIN 10 MG TABLET PO SCH (08:57)
[2021-07-31] MEDS: GLUCOSAMINE/CHONDROITIN SULF A 1 CAP CAPSULE PO SCH (08:57)
[2021-07-31] MEDS: APIXABAN 5 MG TABLET PO SCH ×2 (08:57→20:06)
[2021-07-31] MEDS: DOCUSATE SODIUM 100 MG CAPSULE PO SCH ×2 (09:26→20:07)
[2021-07-31 11:36] LABS: Blood Urea Nitrogen 26 mg/dL (8-23); Calcium 8.9 mg/dL (8.6-10.4); Carbon Dioxide 27 mmol/L (22-30); Chloride 99 mmol/L (96-108); Glomerular Filtration Rate 36; Glucose 83 mg/dL (70-105)
[2021-07-31] MEDS: FUROSEMIDE 40 MG/4 ML VIAL IV SCH ×2 (13:04→15:06)
--- NOTE | 2021-07-31 16:50 | Internal Med Progress Note ---
SUBJECTIVE Subjective Patient information: Note initiated : 07/31/21 at 4:41 pm Service Date, if different from initiated Date: [] Patient: Lionel Knapp 86 y/o F admitted on 07/29/21 for short of breath. Chief Complaint: Follow-up congestive heart failure Interval history: Ms. Knapp is a 86 year old F history of atrial fibrillation, mixed dyslipidemia, chronic kidney disease III, CHF, p/w 1 day history of shortness of breath. She was seen by chief meteorologist for first time Dr. Hilliard about a week ago, when Torsemide was discontinued and dosage of Eliquis was modified. Last night she woke up from sleep with shortness of breath. she also c/o mild right sided chest pain. Denies any cough or sputum production. Denies wheezing. Denies fever, chills, or sweating. Orthopnea baseline 2 pillow, now on recliner. Baseline physical activity was 100ft now less than 10ft. Denies any unintentional weight gain. Denies any increased legs swelling. She was brought by her son to our ED for further evaluation. Vital signs significant for mild tachypnea with RR to the mid 20s bpm, rest of the VS within normal limits. Labs significant for serum Cr level 1.1, at her baseline. BNP 4572. Troponin-i <0.01. CXR showed mild CHF. 07/30: Been on room air. Afebrile overnight. Improving degree of shortness of breath. c/o nonproductive cough. Denies sputum production or wheezing. Denies chest pain. Denies fever, chills, or sweating. Denies legs swelling. Improving overall strength. Lasix IV-->PO. 07/31: Feeling more dyspneic this morning. Not quite as bad as when she first presented, but worse than yesterday (generally no dyspnea yesterday afternoon). Not much urine output with oral Lasix this morning. Changing back to IV. Constitutional Vitals: Vital Signs Temp Pulse Resp BP Pulse Ox 98.4 F 69 16 137/61 91 07/31/21 15:33 07/31/21 11:36 07/31/21 15:33 07/31/21 15:33 07/31/21 15:33 Period Temp Pulse Resp BP Sys/Mcintosh Pulse Ox Last 24 Hr 97.4 F-98.4 F 60-86 16-19 122-137/52-78 91-97 Intake and Output 07/31/21 07/31/21 07/31/21 05:59 13:59 21:59 Intake Total 480 Output Total 1050 400 Balance -1050 80 Intake & Output: Intake & Output 07/31/21 07/31/21 07/31/21 05:59 13:59 21:59 Intake Total 480 Output Total 1050 400 Balance -1050 80 Intake: Oral 480 Output: Void Amount 1050 400 Other: Meal Lunch Percent of Meal Consumed 100% Urine Appearance Clear Urine Color Bright Yellow Bright Yellow Stool Consistency Loose # Voids 1 # Bowel Movements 3 GENERAL: Sitting in bed, looks mildly uncomfortable RESPIRATORY: Few crackles at the bases bilaterally CARDIOVASCULAR: Irregular, JVP approximately 3 cm above the clavicle at 45 degrees, trace lower extremity edema ABDOMEN: Soft, nontender EXTREMITIES: Trace edema, warm NEURO: Alert, oriented x3 OBJ DATA Labs CBC & Chem 7: 07/30/21 05:27 07/31/21 10:29 Labs: Abnormal Lab Results 07/31/21 07/30/21 07/29/21 10:29 05:27 12:17 Hgb Hct POC Hct 35 L RDW 16.5 H MPV 10.9 H Neut % (Auto) Lymph % (Auto) Lymph # (Auto) BUN 26 H Creatinine 1.3 H NT-Pro-B Natriuret Pep 1975.0 H 4572.0 H 07/29/21 12:17 Hgb 11.1 L Hct 33.7 L POC Hct RDW 16.4 H MPV 11.1 H Neut % (Auto) 80.0 H Lymph % (Auto) 12.8 L Lymph # (Auto) 0.74 L BUN Creatinine NT-Pro-B Natriuret Pep Meds: Medications Acetaminophen (Acetaminophen 325 Mg Tablet) 650 mg PO Q6HP PRN; Protocol PRN Reason: Per Pain Protocol/Fever > 101 Last Admin: 07/31/21 10:31 Dose: 650 mg Documented by: Albuterol/Ipratropium (Ipratropium/Albuterol 3 Ml Ampul.Neb) 3 ml NEB Q4HRT PRN PRN Reason: Wheezing Apixaban (Apixaban 5 Mg Tablet) 2.5 mg PO BID [facility] Last Admin: 07/31/21 08:57 Dose: 2.5 mg Documented by: Atorvastatin Calcium (Atorvastatin 10 Mg Tablet) 10 mg PO QDAY [facility] Last Admin: 07/31/21 08:57 Dose: 10 mg Documented by: Diltiazem HCl (Diltiazem 180 Mg Cap.Xl.24h) 360 mg PO DAILY [facility] Last Admin: 07/31/21 08:57 Dose: 360 mg Documented by: Docusate Sodium (Docusate Sodium 100 Mg Capsule) 100 mg PO BID [facility] Last Admin: 07/31/21 09:26 Dose: Not Given Documented by: Fexofenadine HCl (Fexofenadine 180 Mg Tablet) 180 mg PO QDAY [facility] Last Admin: 07/31/21 08:57 Dose: 180 mg Documented by: Fish Oil (Fish Oil 1,000 Mg Capsule) 1,000 mg PO DAILY [facility] Last Admin: 07/31/21 08:57 Dose: 1,000 mg Documented by: Furosemide (Furosemide 40 Mg/4 Ml Vial) 40 mg IV BIDD [facility] Last Admin: 07/31/21 15:06 Dose: Not Given Documented by: Glucosamine/Chondroitin (Glucosamine/Chondroitin Sulf A 1 Cap Capsule) 1 cap PO DAILY [facility] Last Admin: 07/31/21 08:57 Dose: 1 cap Documented by: Hydralazine HCl (Hydralazine 25 Mg Tablet) 25 mg PO TID [facility] Last Admin: 07/31/21 15:06 Dose: 25 mg Documented by: Iron Carb/Multivit/Rock Crushing Machine Operator/Folic Acid (Multivit,Ther Iron,Ca,Fa & Min 1 Tablet) 1 tab PO DAILY [facility] Last Admin: 07/31/21 08:57 Dose: 1 tab Documented by: Losartan Potassium (Losartan 50 Mg Tablet) 100 mg PO DAILY [facility] Last Admin: 07/31/21 08:57 Dose: 100 mg Documented by: Ondansetron HCl (Ondansetron 4 Mg/2 Ml Vial) 4 mg IV Q6HP PRN PRN Reason: Nausea And Vomiting Senna (Sennosides 1 Tablet) 2 tab PO HS [facility] Last Admin: 07/30/21 20:52 Dose: 2 tab Documented by: Sodium Chloride (0.9 % Sodium Chloride 10 Ml Syringe) 10 ml IV Q8 [facility] Last Admin: 07/31/21 13:35 Dose: 10 ml Documented by: Trazodone HCl (Trazodone Hcl 50 Mg Tablet) 25 mg PO HSP PRN PRN Reason: Insomnia A/P Narrative A/P Narrative: 1. Acute on chronic diastolic heart failure: -Presented with dyspnea, volume overload -Echocardiogram with grade 3 diastolic dysfunction, preserved EF, 60-65% -On fluid restriction, following intake and output, daily weights -On valsartan -Change to oral diuretic afternoon 07/30 -Worsening symptoms 07/31, change back to IV furosemide 2. Permanent atrial fibrillation: -Follows with Dr. Hilliard, cardiology at [facility] -On diltiazem for rate control -On apixaban for stroke prophylaxis -Rate controlled 3. Essential HTN and anemia associated with CKDIII: -Creatinine 1.3 on 07/31 -On valsartan and diltiazem 4.Mixed dyslipidemia: On simvastatin Plan: * Change back to furosemide 40 mg IV twice daily D * Continue fluid restriction, monitoring intake and output, daily weights * Supplemental oxygen as needed, wean as able * Avoid nephrotoxins * Follow renal function * Telemetry monitoring * Continue statin DVT ppx: Eliquis Code status: full Disposition: Suspect another 1-2 days in the hospital for further diuresis Time Spent With Patient Time: Total time spent is greater than 50% in coordination of care (as documented) at patient's floor/unit and/or counseling patient: Total time spent with greater than 50% in coordination of care (as documented) at patient's floor/unit and/or counseling patient:: 25 - 35 minutes QUALITY VTE Deep Vein Thrombosis/Pulmonary Embolism Present on Admission: No
[2021-07-31] MEDS: SENNOSIDES 1 TABLET PO SCH (20:07)
[2021-08-01] MEDS: 0.9 % SODIUM CHLORIDE 10 ML SYRINGE IV SCH ×3 (04:18→20:25)
[2021-08-01] MEDS: FUROSEMIDE 40 MG/4 ML VIAL IV SCH (08:13)
[2021-08-01] MEDS: hydrALAZINE 25 MG TABLET PO SCH ×3 (08:14→20:24)
[2021-08-01] MEDS: FEXOFENADINE 180 MG TABLET PO SCH (08:14)
[2021-08-01] MEDS: LOSARTAN 50 MG TABLET PO SCH (08:14)
[2021-08-01] MEDS: ATORVASTATIN 10 MG TABLET PO SCH (08:14)
[2021-08-01] MEDS: DILTIAZEM 180 MG CAP.XL.24H PO SCH (08:14)
[2021-08-01] MEDS: GLUCOSAMINE/CHONDROITIN SULF A 1 CAP CAPSULE PO SCH (08:14)
[2021-08-01] MEDS: FISH OIL 1,000 MG CAPSULE PO SCH (08:14)
[2021-08-01] MEDS: MULTIVIT,THER IRON,CA,FA & MIN 1 TABLET PO SCH (08:14)
[2021-08-01] MEDS: APIXABAN 5 MG TABLET PO SCH ×2 (08:14→20:24)
[2021-08-01] MEDS: DOCUSATE SODIUM 100 MG CAPSULE PO SCH ×2 (08:15→20:25)
[2021-08-01 08:20] LABS: Blood Urea Nitrogen 26 mg/dL (8-23); Calcium 8.6 mg/dL (8.6-10.4); Carbon Dioxide 24 mmol/L (22-30); Chloride 100 mmol/L (96-108); Glomerular Filtration Rate 40; Glucose 85 mg/dL (70-105)
--- NOTE | 2021-08-01 09:02 | Internal Med Progress Note ---
SUBJECTIVE Subjective Patient information: Note initiated : 08/01/21 at 8:59 am Service Date, if different from initiated Date: [] Patient: Lionel Knapp a 86 y/o F admitted on 07/29/21 for short of breath. Chief Complaint: Follow-up CHF Interval history: Ms. Knapp is a 86 year old F history of atrial fibrillation, mixed dyslipidemia, chronic kidney disease III, CHF, p/w 1 day history of shortness of breath. She was seen by round kiln drawer for first time Dr. Hilliard about a week ago, when Torsemide was discontinued and dosage of Eliquis was modified. Last night she woke up from sleep with shortness of breath. she also c/o mild right sided chest pain. Denies any cough or sputum production. Denies wheezing. Denies fever, chills, or sweating. Orthopnea baseline 2 pillow, now on recliner. Baseline physical activity was 100ft now less than 10ft. Denies any unintentional weight gain. Denies any increased legs swelling. She was brought by her son to our ED for further evaluation. Vital signs significant for mild tachypnea with RR to the mid 20s bpm, rest of the VS within normal limits. Labs significant for serum Cr level 1.1, at her baseline. BNP 4572. Troponin-i <0.01. CXR showed mild CHF. 07/30: Been on room air. Afebrile overnight. Improving degree of shortness of breath. c/o nonproductive cough. Denies sputum production or wheezing. Denies chest pain. Denies fever, chills, or sweating. Denies legs swelling. Improving overall strength. Lasix IV-->PO. 07/31: Feeling more dyspneic this morning. Not quite as bad as when she first prese nted, but worse than yesterday (generally no dyspnea yesterday afternoon). Not much urine output with oral Lasix this morning. Changing back to IV. 08/01: Dyspnea is improved today. Tolerating IV diuretic. No new complaints. Patient notes she had been on salt tablets because of hyponatremia. It appears she had torsemide stopped during a recent cardiology visit. No lower extremity edema, no chest pain, improved dyspnea. Constitutional Vitals: Vital Signs Temp Pulse Resp BP Pulse Ox 98 F 63 12 155/65 92 08/01/21 07:00 08/01/21 04:00 08/01/21 07:00 08/01/21 07:00 08/01/21 07:00 Period Temp Pulse Resp BP Sys/Mcintosh Pulse Ox Last 24 Hr 97.9 F-98.5 F 63-88 12-19 124-155/60-68 91-95 Intake and Output 07/31/21 08/01/21 08/01/21 21:59 05:59 13:59 Intake Total 480 480 Output Total 450 350 300 Balance 30 -350 180 Weight 121 lb Intake & Output: Intake & Output 07/31/21 08/01/21 08/01/21 21:59 05:59 13:59 Intake Total 480 480 Output Total 450 350 300 Balance 30 -350 180 Weight 121 lb Intake: Oral 480 480 Output: Void Amount 450 350 300 Other: Meal Dinner Percent of Meal Consumed 100% Urine Appearance Clear Urine Color Bright Yellow GENERAL: Laying in bed no acute distress RESPIRATORY: Few crackles at the bases bilaterally CARDIOVASCULAR: Irregular, JVP about 1 cm above clavicle, no lower extremity edema ABDOMEN: Soft, nontender EXTREMITIES: Warm, no edema NEURO: Alert, oriented x3, ambulatory OBJ DATA Labs CBC & Chem 7: 07/30/21 05:27 08/01/21 07:35 Labs: Abnormal Lab Results 08/01/21 07/31/21 07/30/21 07:35 10:29 05:27 Hgb Hct POC Hct RDW 16.5 H MPV 10.9 H Neut % (Auto) Lymph % (Auto) Lymph # (Auto) BUN 26 H 26 H Creatinine 1.2 H 1.3 H NT-Pro-B Natriuret Pep 1975.0 H 07/29/21 07/29/21 12:17 12:17 Hgb 11.1 L Hct 33.7 L POC Hct 35 L RDW 16.4 H MPV 11.1 H Neut % (Auto) 80.0 H Lymph % (Auto) 12.8 L Lymph # (Auto) 0.74 L BUN Creatinine NT-Pro-B Natriuret Pep 4572.0 H Meds: Medications Acetaminophen (Acetaminophen 325 Mg Tablet) 650 mg PO Q6HP PRN; Protocol PRN Reason: Per Pain Protocol/Fever > 101 Last Admin: 07/31/21 10:31 Dose: 650 mg Documented by: Albuterol/Ipratropium (Ipratropium/Albuterol 3 Ml Ampul.Neb) 3 ml NEB Q4HRT PRN PRN Reason: Wheezing Apixaban (Apixaban 5 Mg Tablet) 2.5 mg PO BID [facility] Last Admin: 08/01/21 08:14 Dose: 2.5 mg Documented by: Atorvastatin Calcium (Atorvastatin 10 Mg Tablet) 10 mg PO QDAY [facility] Last Admin: 08/01/21 08:14 Dose: 10 mg Documented by: Diltiazem HCl (Diltiazem 180 Mg Cap.Xl.24h) 360 mg PO DAILY [facility] Last Admin: 08/01/21 08:14 Dose: 360 mg Documented by: Docusate Sodium (Docusate Sodium 100 Mg Capsule) 100 mg PO BID [facility] Last Admin: 08/01/21 08:15 Dose: Not Given Documented by: Fexofenadine HCl (Fexofenadine 180 Mg Tablet) 180 mg PO QDAY [facility] Last Admin: 08/01/21 08:14 Dose: 180 mg Documented by: Fish Oil (Fish Oil 1,000 Mg Capsule) 1,000 mg PO DAILY [facility] Last Admin: 08/01/21 08:14 Dose: 1,000 mg Documented by: Furosemide (Furosemide 40 Mg/4 Ml Vial) 40 mg IV BIDD [facility] Last Admin: 08/01/21 08:13 Dose: 40 mg Documented by: Glucosamine/Chondroitin (Glucosamine/Chondroitin Sulf A 1 Cap Capsule) 1 cap PO DAILY [facility] Last Admin: 08/01/21 08:14 Dose: 1 cap Documented by: Hydralazine HCl (Hydralazine 25 Mg Tablet) 25 mg PO TID [facility] Last Admin: 08/01/21 08:14 Dose: 25 mg Documented by: Iron Carb/Multivit/Bacteriologist Soil/Folic Acid (Multivit,Ther Iron,Ca,Fa & Min 1 Tablet) 1 tab PO DAILY [facility] Last Admin: 08/01/21 08:14 Dose: 1 tab Documented by: Losartan Potassium (Losartan 50 Mg Tablet) 100 mg PO DAILY [facility] Last Admin: 08/01/21 08:14 Dose: 100 mg Documented by: Ondansetron HCl (Ondansetron 4 Mg/2 Ml Vial) 4 mg IV Q6HP PRN PRN Reason: Nausea And Vomiting Senna (Sennosides 1 Tablet) 2 tab PO HS [facility] Last Admin: 07/31/21 20:07 Dose: Not Given Documented by: Sodium Chloride (0.9 % Sodium Chloride 10 Ml Syringe) 10 ml IV Q8 [facility] Last Admin: 08/01/21 04:18 Dose: 10 ml Documented by: Trazodone HCl (Trazodone Hcl 50 Mg Tablet) 25 mg PO HSP PRN PRN Reason: Insomnia A/P Narrative A/P Narrative: 1. Acute on chronic diastolic heart failure: -Presented with dyspnea, volume overload -Echocardiogram with grade 3 diastolic dysfunction, preserved EF, 60-65% -Had been on sodium chloride tablets for hyponatremia -Home torsemide recently stopped after cardiology follow-up -On fluid restriction, following intake and output, daily weights -On valsartan -Change to oral diuretic afternoon 07/30 -Worsening symptoms 07/31, change back to IV furosemide, 40 mg BIDD -Increase furosemide to 80 mg BIDD on 08/01 2. Permanent atrial fibrillation: -Follows with Dr. Hilliard, cardiology at [facility] -On diltiazem for rate control -On apixaban for stroke prophylaxis -Rate controlled 3. Essential HTN and anemia associated with CKDIII: -Creatinine 1.3 on 07/31 -On valsartan and diltiazem -Creatinine stable at 1.2 on 08/01 4.Mixed dyslipidemia: On rosuvastatin Plan: * Increased furosemide to 80 mg BID-D * Continue fluid restriction, monitoring intake and output, daily weights * Supplemental oxygen as needed * Avoid nephrotoxins * Follow renal function * Telemetry monitoring * Continue statin DVT ppx: Eliquis Code status: full Disposition: Suspect another 1-2 days in the hospital for further diuresis QUALITY VTE Deep Vein Thrombosis/Pulmonary Embolism Present on Admission: No
--- NOTE | 2021-08-01 13:00 | Internal Med Progress Note ---
SUBJECTIVE Subjective Patient information: Note initiated : 08/01/21 at 12:57 pm Service Date, if different from initiated Date: [] Patient: Lionel Knapp 86 y/o F admitted on 07/29/21 for short of breath. Chief Complaint: [] Interval history: Ms. Knapp is a 86 year old F history of atrial fibrillation, mixed dyslipidemia, chronic kidney disease III, CHF, p/w 1 day history of shortness of breath. She was seen by vessel master for first time Dr. Hilliard about a week ago, when Torsemide was discontinued and dosage of Eliquis was modified. Last night she woke up from sleep with shortness of breath. she also c/o mild right sided chest pain. Denies any cough or sputum production. Denies wheezing. Denies fever, chills, or sweating. Orthopnea baseline 2 pillow, now on recliner. Baseline physical activity was 100ft now less than 10ft. Denies any unintentional weight gain. Denies any increased legs swelling. She was brought by her son to our ED for further evaluation. Vital signs significant for mild tachypnea with RR to the mid 20s bpm, rest of the VS within normal limits. Labs significant for serum Cr level 1.1, at her baseline. BNP 4572. Troponin-i <0.01. CXR showed mild CHF. 07/30: Been on room air. Afebrile overnight. Improving degree of shortness of breath. c/o nonproductive cough. Denies sputum production or wheezing. Denies chest pain. Denies fever, chills, or sweating. Denies legs swelling. Improving overall strength. Lasix IV-->PO. 07/31: Feeling more dyspneic this morning. Not quite as bad as when she first presented, but worse than yesterday (generally no dyspnea yesterday afternoon). Not much urine output with oral Lasix this morning. Changing back to IV. 08/01: Dyspnea is improved today. Tolerating IV diuretic. No new complaints. Patient notes she had been on salt tablets because of hyponatremia. It appears she had torsemide stopped during a recent cardiology visit. No lower extremity edema, no chest pain, improved dyspnea. Constitutional Vitals: Vital Signs Temp Pulse Resp BP Pulse Ox 98.7 F 63 20 139/50 94 08/01/21 12:00 08/01/21 04:00 08/01/21 12:00 08/01/21 12:00 08/01/21 12:00 Period Temp Pulse Resp BP Sys/Mcintosh Pulse Ox Last 24 Hr 98 F-98.7 F 63-88 12-20 124-155/50-65 91-94 Intake and Output 07/31/21 08/01/21 08/01/21 21:59 05:59 13:59 Intake Total 480 480 Output Total 450 350 700 Balance 30 -350 -220 Weight 54.885 kg Intake & Output: Intake & Output 07/31/21 08/01/21 08/01/21 21:59 05:59 13:59 Intake Total 480 480 Output Total 450 350 700 Balance 30 -350 -220 Weight 54.885 kg Intake: Oral 480 480 Output: Void Amount 450 350 700 Other: Meal Dinner Lunch Percent of Meal Consumed 100% 100% Urine Appearance Clear Urine Color Bright Yellow Bright Yellow Exam: General: Alert, Awake, No acute Distress Eyes/N/T: EOMI, Head/Neck: neck supple, CV: irreg, No murmurs, Pulm: Clear b/l, no wheezing/rhonchi/rales Abd: soft, nontender, +BS x4 Ext: no clubbing/cyanosis/edema Neuro: Alert, no focal deficits, moves all extremities, Skin: warm/dry OBJ DATA Labs CBC & Chem 7: 07/30/21 05:27 08/01/21 07:35 Labs: Abnormal Lab Results 08/01/21 07/31/21 07/30/21 07:35 10:29 05:27 Hgb Hct RDW 16.5 H MPV 10.9 H Neut % (Auto) Lymph % (Auto) Lymph # (Auto) BUN 26 H 26 H Creatinine 1.2 H 1.3 H NT-Pro-B Natriuret Pep 1975.0 H 07/29/21 07/29/21 12:17 12:17 Hgb 11.1 L Hct 33.7 L RDW 16.4 H MPV 11.1 H Neut % (Auto) 80.0 H Lymph % (Auto) 12.8 L Lymph # (Auto) 0.74 L BUN Creatinine NT-Pro-B Natriuret Pep 4572.0 H Meds: Medications Acetaminophen (Acetaminophen 325 Mg Tablet) 650 mg PO Q6HP PRN; Protocol PRN Reason: Per Pain Protocol/Fever > 101 Last Admin: 07/31/21 10:31 Dose: 650 mg Documented by: Albuterol/Ipratropium (Ipratropium/Albuterol 3 Ml Ampul.Neb) 3 ml NEB Q4HRT PRN PRN Reason: Wheezing Apixaban (Apixaban 5 Mg Tablet) 2.5 mg PO BID [facility] Last Admin: 08/01/21 08:14 Dose: 2.5 mg Documented by: Atorvastatin Calcium (Atorvastatin 10 Mg Tablet) 10 mg PO QDAY [facility] Last Admin: 08/01/21 08:14 Dose: 10 mg Documented by: Diltiazem HCl (Diltiazem 180 Mg Cap.Xl.24h) 360 mg PO DAILY [facility] Last Admin: 08/01/21 08:14 Dose: 360 mg Documented by: Docusate Sodium (Docusate Sodium 100 Mg Capsule) 100 mg PO BID [facility] Last Admin: 08/01/21 08:15 Dose: Not Given Documented by: Fexofenadine HCl (Fexofenadine 180 Mg Tablet) 180 mg PO QDAY [facility] Last Admin: 08/01/21 08:14 Dose: 180 mg Documented by: Fish Oil (Fish Oil 1,000 Mg Capsule) 1,000 mg PO DAILY [facility] Last Admin: 08/01/21 08:14 Dose: 1,000 mg Documented by: Furosemide (Furosemide 40 Mg/4 Ml Vial) 80 mg IV BIDD [facility] Glucosamine/Chondroitin (Glucosamine/Chondroitin Sulf A 1 Cap Capsule) 1 cap PO DAILY [facility] Last Admin: 08/01/21 08:14 Dose: 1 cap Documented by: Hydralazine HCl (Hydralazine 25 Mg Tablet) 25 mg PO TID [facility] Last Admin: 08/01/21 08:14 Dose: 25 mg Documented by: Iron Carb/Multivit/Foil Cutter/Folic Acid (Multivit,Ther Iron,Ca,Fa & Min 1 Tablet) 1 tab PO DAILY [facility] Last Admin: 08/01/21 08:14 Dose: 1 tab Documented by: Losartan Potassium (Losartan 50 Mg Tablet) 100 mg PO DAILY [facility] Last Admin: 08/01/21 08:14 Dose: 100 mg Documented by: Ondansetron HCl (Ondansetron 4 Mg/2 Ml Vial) 4 mg IV Q6HP PRN PRN Reason: Nausea And Vomiting Senna (Sennosides 1 Tablet) 2 tab PO HS [facility] Last Admin: 07/31/21 20:07 Dose: Not Given Documented by: Sodium Chloride (0.9 % Sodium Chloride 10 Ml Syringe) 10 ml IV Q8 [facility] Last Admin: 08/01/21 04:18 Dose: 10 ml Documented by: Trazodone HCl (Trazodone Hcl 50 Mg Tablet) 25 mg PO HSP PRN PRN Reason: Insomnia A/P Narrative A/P Narrative: A: *Acute on chronic diastolic (III) CHF / volume overload: -Echo good EF, grade 3 diastolic dysfxn, mildly reduced RV systolic fxn, severe biatrial dilation, mod-sev MR/TR, mod pulm HTN -Had been on sodium chloride tablets for hyponatremia -Home torsemide recently stopped after cardiology follow-up *Permanent Atrial fibrillation: -Follows with Dr. Hilliard, cardiology at [facility] -diltiazem / apixaban *HTN: on hydralazine/ARB/dilt *h/o CEA and KARLA: was on Plavix in past, has followed with Dr. Pack *CKD III: Follows with Dr. 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
[2021-08-01] MEDS ORDERED: FUROSEMIDE 40 MG/4 ML VIAL IV SCH (16:00)
[2021-08-01] MEDS: SENNOSIDES 1 TABLET PO SCH (20:25)
[2021-08-02] MEDS: 0.9 % SODIUM CHLORIDE 10 ML SYRINGE IV SCH ×3 (04:38→21:22)
[2021-08-02 07:17] LABS: Albumin 3.7 gm/dL (3.2-5.2); Blood Urea Nitrogen 29 mg/dL (8-23); Carbon Dioxide 28 mmol/L (22-30); Chloride 99 mmol/L (96-108); Glomerular Filtration Rate 28; Glucose 79 mg/dL (70-105); Phosphorous 3.8 mg/dL (2.5-4.5)
--- NOTE | 2021-08-02 07:20 | EKG ---
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 Measurements Intervals Wall Rate: 74 P: MD: QRS: 27 QRSD: 93 T: -14 QT: 390 QTc: 433 Interpretive Statements Atrial fibrillation Anterior infarct, old Borderline T abnormalities, inferior leads No significant change compared to prior ECG. Electronically Signed On 08-02-2021 7:20:41 PST by Jarrod Cintron M.D. /store/[email or web address]/[id number]
--- NOTE | 2021-08-02 07:26 | Internal Med Progress Note ---
SUBJECTIVE Subjective Patient information: Note initiated : 08/02/21 at 7:21 am Service Date, if different from initiated Date: [] Patient: Lionel Knapp 86 y/o F admitted on 07/29/21 for short of breath. Chief Complaint: [] Interval history: Ms. Knapp is a 86 year old F history of atrial fibrillation, mixed dyslipidemia, chronic kidney disease III, CHF, p/w 1 day history of shortness of breath. She was seen by director of transportation for first time Dr. Hilliard about a week ago, when Torsemide was discontinued and dosage of Eliquis was modified. Last night she woke up from sleep with shortness of breath. she also c/o mild right sided chest pain. Denies any cough or sputum production. Denies wheezing. Denies fever, chills, or sweating. Orthopnea baseline 2 pillow, now on recliner. Baseline physical activity was 100ft now less than 10ft. Denies any unintentional weight gain. Denies any increased legs swelling. She was brought by her son to our ED for further evaluation. Vital signs significant for mild tachypnea with RR to the mid 20s bpm, rest of the VS within normal limits. Labs significant for serum Cr level 1.1, at her baseline. BNP 4572. Troponin-i <0.01. CXR showed mild CHF. 07/30: Been on room air. Afebrile overnight. Improving degree of shortness of breath. c/o nonproductive cough. Denies sputum production or wheezing. Denies chest pain. Denies fever, chills, or sweating. Denies legs swelling. Improving overall strength. Lasix IV-->PO. 07/31: Feeling more dyspneic this morning. Not quite as bad as when she first presented, but worse than yesterday (generally no dyspnea yesterday afternoon). Not much urine output with oral Lasix this morning. Changing back to IV. 08/01: Dyspnea is improved today. Tolerating IV diuretic. No new complaints. Patient notes she had been on salt tablets because of hyponatremia. It appears she had torsemide stopped during a recent cardiology visit. No lower extremity edema, no chest pain, improved dyspnea. 1/3 Cannot fully and slowly feeling better. Mild cough shortness of breath. Good urine output. Will hold Lasix given bump in creatinine. Patient to follow-up with cardiology outpatient. Review of Systems: denies headache/fever/chills/nausea/vomiting/chest or abdominal pain/diarrhea. Otherwise see above. Constitutional Vitals: Vital Signs Temp Pulse Resp BP Pulse Ox 98.4 F 73 18 150/68 93 08/02/21 06:55 08/02/21 06:55 08/02/21 06:55 08/02/21 06:55 08/02/21 06:55 Period Temp Pulse Resp BP Sys/Mcintosh Pulse Ox Last 24 Hr 97.0 F-98.7 F 54-79 14-20 134-150/50-84 93-95 Intake and Output 08/01/21 08/02/21 08/02/21 21:59 05:59 13:59 Intake Total 700 Output Total 1050 300 Balance -350 -300 Weight 55.055 kg Intake & Output: Intake & Output 08/01/21 08/02/21 08/02/21 21:59 05:59 13:59 Intake Total 700 Output Total 1050 300 Balance -350 -300 Weight 55.055 kg Intake: Oral 700 Output: Void Amount 1050 300 Other: Meal Dinner Percent of Meal Consumed 100% Urine Appearance Clear Urine Color Bright Yellow Exam: General: Alert, Awake, No acute Distress Eyes/N/T: EOMI, Head/Neck: neck supple, CV: irreg, No murmurs, Pulm: few rales at bases, no wheezing Abd: soft, nontender, +BS x4 Ext: no clubbing/cyanosis/edema Neuro: Alert, no focal deficits, moves all extremities, Skin: warm/dry OBJ DATA Labs CBC & Chem 7: 07/30/21 05:27 08/02/21 05:24 Labs: Abnormal Lab Results 08/02/21 08/01/21 07/31/21 05:24 07:35 10:29 BUN 29 H 26 H 26 H Creatinine 1.6 H 1.2 H 1.3 H NT-Pro-B Natriuret Pep 1975.0 H Meds: Medications Acetaminophen (Acetaminophen 325 Mg Tablet) 650 mg PO Q6HP PRN; Protocol PRN Reason: Per Pain Protocol/Fever > 101 Last Admin: 07/31/21 10:31 Dose: 650 mg Documented by: Albuterol/Ipratropium (Ipratropium/Albuterol 3 Ml Ampul.Neb) 3 ml NEB Q4HRT PRN PRN Reason: Wheezing Apixaban (Apixaban 5 Mg Tablet) 2.5 mg PO BID [facility] Last Admin: 08/01/21 20:24 Dose: 2.5 mg Documented by: Atorvastatin Calcium (Atorvastatin 10 Mg Tablet) 10 mg PO QDAY [facility] Last Admin: 08/01/21 08:14 Dose: 10 mg Documented by: Diltiazem HCl (Diltiazem 180 Mg Cap.Xl.24h) 360 mg PO DAILY [facility] Last Admin: 08/01/21 08:14 Dose: 360 mg Documented by: Docusate Sodium (Docusate Sodium 100 Mg Capsule) 100 mg PO BID [facility] Last Admin: 08/01/21 20:25 Dose: Not Given Documented by: Fexofenadine HCl (Fexofenadine 180 Mg Tablet) 180 mg PO QDAY [facility] Last Admin: 08/01/21 08:14 Dose: 180 mg Documented by: Fish Oil (Fish Oil 1,000 Mg Capsule) 1,000 mg PO DAILY [facility] Last Admin: 08/01/21 08:14 Dose: 1,000 mg Documented by: Furosemide (Furosemide 40 Mg/4 Ml Vial) 80 mg IV BIDD [facility] Last Admin: 08/01/21 14:58 Dose: 80 mg Documented by: Glucosamine/Chondroitin (Glucosamine/Chondroitin Sulf A 1 Cap Capsule) 1 cap PO DAILY [facility] Last Admin: 08/01/21 08:14 Dose: 1 cap Documented by: Hydralazine HCl (Hydralazine 25 Mg Tablet) 25 mg PO TID [facility] Last Admin: 08/01/21 20:24 Dose: 25 mg Documented by: Iron Carb/Multivit/[place]/Folic Acid (Multivit,Ther Iron,Ca,Fa & Min 1 Tablet) 1 tab PO DAILY [facility] Last Admin: 08/01/21 08:14 Dose: 1 tab Documented by: Losartan Potassium (Losartan 50 Mg Tablet) 100 mg PO DAILY [facility] Last Admin: 08/01/21 08:14 Dose: 100 mg Documented by: Ondansetron HCl (Ondansetron 4 Mg/2 Ml Vial) 4 mg IV Q6HP PRN PRN Reason: Nausea And Vomiting Senna (Sennosides 1 Tablet) 2 tab PO HS [facility] Last Admin: 08/01/21 20:25 Dose: Not Given Documented by: Sodium Chloride (0.9 % Sodium Chloride 10 Ml Syringe) 10 ml IV Q8 [facility] Last Admin: 08/02/21 04:38 Dose: 10 ml Documented by: Trazodone HCl (Trazodone Hcl 50 Mg Tablet) 25 mg PO HSP PRN PRN Reason: Insomnia A/P Narrative A/P Narrative: A: *Acute on chronic diastolic (III) CHF / volume overload: -Echo good EF, grade 3 diastolic dysfxn, mildly reduced RV syst fxn, sev biatrial dilation, mod-sev MR/TR, mod pulm HTN -Had been on sodium chloride tablets for hyponatremia -Home torsemide recently stopped after cardiology follow-up -good uop, CXR improved *Permanent Atrial fibrillation: -Follows with Dr. Hilliard, cardiology at [facility] -diltiazem / apixaban *HTN: on hydralazine/ARB/dilt *h/o CEA and KARLA: was on Plavix in past, has followed with Dr. Pack *CKD III: Follows with Dr. 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
--- NOTE | 2021-08-02 07:44 | XRay Report ---
HISTORY: Follow-up congestive heart failure FINDINGS: The heart is moderately enlarged but has decreased in size since 07/29/21. The congestive heart failure and edema have resolved. There is no pleural effusion or consolidating infiltrate. No mass or adenopathy are present. Advanced degenerative changes are present in both shoulders. Both humeral heads are subluxed superiorly which is indirect evidence of rotator cuff tears. IMPRESSION: Resolved congestive heart failure and improved cardiomegaly Interpreted and Authenticated by: Surya Cintron 08/02/21
[2021-08-02 07:53] LABS: Uric Acid 8.2 mg/dL (2.5-8.0)
[2021-08-02] MEDS: MULTIVIT,THER IRON,CA,FA & MIN 1 TABLET PO SCH (08:15)
[2021-08-02] MEDS: DOCUSATE SODIUM 100 MG CAPSULE PO SCH ×2 (08:15→21:22)
[2021-08-02] MEDS: FEXOFENADINE 180 MG TABLET PO SCH (08:15)
[2021-08-02] MEDS: DILTIAZEM 180 MG CAP.XL.24H PO SCH (08:15)
[2021-08-02] MEDS: ATORVASTATIN 10 MG TABLET PO SCH (08:15)
[2021-08-02] MEDS: FISH OIL 1,000 MG CAPSULE PO SCH (08:15)
[2021-08-02] MEDS: LOSARTAN 50 MG TABLET PO SCH (08:15)
[2021-08-02] MEDS: APIXABAN 5 MG TABLET PO SCH ×2 (08:15→21:20)
[2021-08-02] MEDS: GLUCOSAMINE/CHONDROITIN SULF A 1 CAP CAPSULE PO SCH (08:15)
[2021-08-02] MEDS: hydrALAZINE 25 MG TABLET PO SCH ×3 (08:15→21:20)
--- NOTE | 2021-08-02 10:15 | Discharge Summary ---
Discharge Provider Provider Patient information: Note initiated : 08/02/21 at 10:12 am Service Date, if different from initiated Date: [] Patient: Lionel Knapp 86 y/o F admitted on 07/29/21 for short of breath. Chief Complaint: [] Date of admission: 07/29/21 18:34 Discharge date: 08/03/21 Primary care physician: Jose Jarquin MD Consults: 07/29/21 Consult to Physician [CONS] Stat Comment: Consulting Provider: Keith Lawson Reason For Exam: Physician to Consult Discharge Meds Discharge Medications Home Medications multivitamin 1 tab PO QDAY tab 02/03/15 [History Confirmed 07/29/21 Last Taken 07/29/21 08:00] glucosamine HCl 1,500 mg tablet 1,500 mg PO QDAY 07/20/17 [History Confirmed 07/29/21 Last Taken 07/29/21 08:00] flaxseed oil 1,000 mg capsule 1,000 mg PO QDAY 11/16/17 [History Confirmed 07/29 Last Taken 07/29/21 08:00] apixaban 5 mg tablet (Eliquis) 2.5 mg PO BID 12/26/18 [History Confirmed 07/29/21 Last Taken 07/29/21 08:00] diltiazem HCl 360 mg capsule,extended release 24 hr 360 mg PO QDAY #90 cap 05/26/20 [Rx Confirmed 07/29/21 Last Taken 07/29/21 08:00] fexofenadine 180 mg tablet (Radha Allergy) 180 mg PO QDAY 09/04/20 [History Confirmed 07/29/21 Last Taken 07/29/21 08:00] B/L knee high compression garments (15-20 mmHg) #1 ea 12/31/20 [Rx Confirmed 07/29/21 Last Taken Unknown] hydralazine 25 mg tablet 25 mg PO TID #270 tab 03/30/21 [Rx Confirmed 07/29/21 Last Taken 07/29/21 08:00] valsartan 160 mg tablet 160 mg PO DAILY 06/17/21 [History Confirmed 07/29/21 Last Taken 07/29/21 08:00] torsemide 10 mg tablet 20 mg PO DAILY #30 tab 06/18/21 [Rx Confirmed 07/29/21 Last Taken 07/29/21 08:00] rosuvastatin 5 mg tablet 5 mg PO QDAY #90 tab 08/03/21 [Rx Last Taken Unknown] COURSE Hospital Course Hospital course: Interval history: Ms. Knapp is a 86 year old F history of atrial fibrillation, mixed dyslipidemia, chronic kidney disease III, CHF, p/w 1 day history of shortness of breath. She was seen by logistics project manager for first time Dr. Hilliard about a week ago, when Torsemide was discontinued and dosage of Eliquis was modified. Last night she woke up from sleep with shortness of breath. she also c/o mild right sided chest pain. Denies any cough or sputum production. Denies wheezing. Denies fever, chills, or sweating. Orthopnea baseline 2 pillow, now on recliner. Baseline physical act ivity was 100ft now less than 10ft. Denies any unintentional weight gain. Denies any increased legs swelling. She was brought by her son to our ED for further evaluation. Vital signs significant for mild tachypnea with RR to the mid 20s bpm, rest of the VS within normal limits. Labs significant for serum Cr level 1.1, at her baseline. BNP 4572. Troponin-i <0.01. CXR showed mild CHF. 07/30: Been on room air. Afebrile overnight. Improving degree of shortness of breath. c/o nonproductive cough. Denies sputum production or wheezing. Denies chest pain. Denies fever, chills, or sweating. Denies legs swelling. Improving overall strength. Lasix IV-->PO. 07/31: Feeling more dyspneic this morning. Not quite as bad as when she first presented, but worse than yesterday (generally no dyspnea yesterday afternoon). Not much urine output with oral Lasix this morning. Changing back to IV. 08/01: Dyspnea is improved today. Tolerating IV diuretic. No new complaints. Patient notes she had been on salt tablets because of hyponatremia. It appears she had torsemide stopped during a recent cardiology visit. No lower extremity edema, no chest pain, improved dyspnea. 08/02 Cannot fully and slowly feeling better. Mild cough shortness of breath. Good urine output. Will hold Lasix given bump in creatinine. Patient to follow-up with cardiology outpatient. 1/4 No new complaints overnight event. A: *Acute on chronic diastolic (III) CHF / volume overload: -Echo good EF, grade 3 diastolic dysfxn, mildly reduced RV syst fxn, sev biatrial dilation, mod-sev MR/TR, mod pulm HTN -good uop, CXR improved *Permanent Atrial fibrillation: -Follows with Dr. Hilliard, cardiology at [facility] -diltiazem / apixaban *HTN: on hydralazine/ARB/dilt *h/o CEA and KARLA: was on Plavix in past, has followed with Dr. Pack *CKD III: Follows with Dr. Black *Anemia, chronic: Plan: -d/c home salt tabs and restart home toresemide -f/u with cardiology Discharge diagnosis: Acute on chronic diastolic heart failure A. fib Secondary discharge diagnosis: Hypertension vascular disease chronic kidney disease chronic anemia Time Spent with Patient Time attestation: Total time spent providing and/or coordinating discharge services: Time spent: Greater than 30 minutes EXAM Constitutional Vitals: Temp Pulse Resp BP Pulse Ox 98.4 F 73 18 150/68 93 08/02/21 06:55 08/02/21 06:55 08/02/21 06:55 08/02/21 06:55 08/02/21 06:55 Discharge Data Data Completed and Pending Labs on day of discharge: Labs from last 24 hours 08/02/21 08/02/21 05:24 05:24 Sodium 135 Potassium 3.9 Chloride 99 Carbon Dioxide 28 Anion Gap 8.0 BUN 29 H Creatinine 1.6 H GFR Calculation 28 Glucose 79 Uric Acid 8.2 H Calcium 9.0 Phosphorus 3.8 Magnesium 2.2 Albumin 3.7 Discharge Plan Patient/Caregiver Discharge Instructions Activity: increase activity as tolerated Diet: Regular Diet Prescriptions: Continued diltiazem HCl 360 mg capsule,extended release 24hr 360 mg PO QDAY Qty: 90 4RF hydralazine 25 mg tablet 25 mg PO TID Qty: 270 1RF multivitamin tablet 1 tab PO QDAY 0RF fexofenadine [Radha Allergy] 180 mg tablet 180 mg PO QDAY 0RF (DME) B/L knee high compression garments (15-20 mmHg) See Rx Instructions .Route .MEDSUPPLY Qty: 1 0RF Rx Instructions: As directed glucosamine HCl 1,500 mg tablet 1,500 mg PO QDAY 0RF flaxseed oil 1,000 mg capsule 1,000 mg PO QDAY 0RF Eliquis 5 mg tablet 2.5 mg PO BID 0RF valsartan 160 mg tablet 160 mg PO DAILY 0RF torsemide 10 mg tablet 20 mg PO DAILY Qty: 30 0RF No Action rosuvastatin 5 mg tablet 5 mg PO QDAY Qty: 90 0RF Follow Up Plan Follow up with: Dino Hilliard [Physician] - Jose Jarquin MD [Primary Care Provider] - 08/12/21 11:15 am (Please follow up with Dr Jarquin for your hospital follow up) Patient Disposition: Home Health Service Prognosis: Fair Rehab Potential: Fair Overall status at discharge: patient is progressing back to baseline Discharge Orders: Discharge Order (Routine); Ordered 08/03/21 Ordered By: Avi Simmons [facility] Deep Vein Thrombosis/Pulmonary Embolism Present on Admission: No
[2021-08-02] MEDS: SENNOSIDES 1 TABLET PO SCH (21:22)
[2021-08-03] MEDS: GLUCOSAMINE/CHONDROITIN SULF A 1 CAP CAPSULE PO SCH (08:55)
[2021-08-03] MEDS: DILTIAZEM 180 MG CAP.XL.24H PO SCH (08:55)
[2021-08-03] MEDS: 0.9 % SODIUM CHLORIDE 10 ML SYRINGE IV SCH ×2 (08:55→13:38)
[2021-08-03] MEDS: LOSARTAN 50 MG TABLET PO SCH (08:56)
[2021-08-03] MEDS: FISH OIL 1,000 MG CAPSULE PO SCH (08:56)
[2021-08-03] MEDS: hydrALAZINE 25 MG TABLET PO SCH ×2 (08:56→14:43)
[2021-08-03] MEDS: MULTIVIT,THER IRON,CA,FA & MIN 1 TABLET PO SCH (08:56)
[2021-08-03] MEDS: APIXABAN 5 MG TABLET PO SCH (08:57)
[2021-08-03] MEDS: FEXOFENADINE 180 MG TABLET PO SCH (08:58)
[2021-08-03] MEDS: DOCUSATE SODIUM 100 MG CAPSULE PO SCH (08:58)
[2021-08-03] MEDS: ATORVASTATIN 10 MG TABLET PO SCH (09:00)
== END 2021-08-03 15:25 | disposition home health service (06) | DRG 291 ==
LOC: ED 11:37 → MEDSUR 11:37 → OBSVTOIN 18:34
PROVIDERS: ADMIT Internal Medicine; ATTEND Internal Medicine

== ENCOUNTER 2022-10-25 15:54 | Inpatient (IN) ==
[2022-10-25] MEDS ORDERED: 0.9 % SODIUM CHLORIDE 1,000 ML IV ONE ×2 (15:59→19:35)
[2022-10-25 16:17] LABS: POC Calcium, Ionized 1.21 (1.16-1.32); POC Creatinine 1.9 (0.6-1.2); POC Potassium 4.1 (3.3-5.1)
--- NOTE | 2022-10-25 16:21 | Emergency Department Note ---
HPI General Chief complaint: Trauma Stated complaint: syncope Time Seen by Provider: 10/25/22 15:59 Source: patient and EMS Mode of arrival: EMS History of Present Illness HPI Narrative: Narrative: This 87-year-old female was brought via EMS after collapsing at parking lot of a local [employer] grocery store. She does not remember hitting her head she remembers being awoken while still on the ground. She complains of pain to her right shoulder only. The patient denies having any symptoms of any problems earlier in the morning. She does have significant medical history in terms of carotid endarterectomy atrial fib with chronic anticoagulation mitral regurgitation CKD 3 status post appendectomy total abdominal hysterectomy, and multiple orthopedic surgeries. She denies any headache any nausea any dizziness or ataxia at this point Related Data Home Medications Medication Instructions Recorded Confirmed multivitamin 1 tab PO QDAY 02/03/15 10/25/22 glucosamine HCl 1,500 mg tablet 1,500 mg PO QDAY 07/20/17 10/25/22 flaxseed oil 1,000 mg capsule 1,000 mg PO QDAY 11/16/17 10/25/22 apixaban 5 mg tablet (Eliquis) 2.5 mg PO BID 12/26/18 10/25/22 sodium PO 10/26/21 05/13/22 fexofenadine 180 mg tablet 180 mg PO QDAY PRN Allergy Symptoms 03/30/22 10/25/22 (Radha Allergy) losartan 100 mg tablet 100 mg PO QDAY 03/30/22 10/25/22 Previous Rx's Medication Instructions Recorded B/L knee high compression garments #1 ea 12/31/20 (15-20 mmHg) torsemide 10 mg tablet 20 mg PO DAILY #30 tabs 06/18/21 valsartan 160 mg tablet 160 mg PO DAILY #90 tabs 03/08/22 hydralazine 25 mg tablet 25 mg PO TID #270 tabs 05/10/22 ipratropium bromide 42 mcg (0.06 2 spray intranasal TID-QID PRN 05/13/22 %) nasal spray allergy symptoms #15 mL rosuvastatin 5 mg tablet 5 mg PO QDAY #90 tabs 05/26/22 levothyroxine 50 mcg capsule 50 mcg PO QDAY #90 caps 09/13/22 diltiazem HCl 360 mg 360 mg PO QDAY #90 caps 09/28/22 capsule,extended release 24 hr lidocaine 5 % topical patch 1 patch topical QDAY #30 ea 09/29/22 Allergies Allergy/AdvReac Type Severity Reaction Status Date / Time ciprofloxacin [From Cipro] AdvReac Severe Delerium Verified 05/13/22 14:36 Cisapride [From Propulsid] AdvReac Mild Diarrhea Verified 05/13/22 14:36 ezetimibe [From Zetia] AdvReac Mild Diarrhea Verified 05/13/22 14:36 loratadine [From Claritin] AdvReac Mild "Funny Verified 05/13/22 14:36 feeling" MRI (stent) AdvReac Severe Other Uncoded 05/13/22 14:36 Review of Systems ROS ROS Narrative: Narrative: PFSH Narrative Patient History Narrative: Narrative: Medical/Surgical/Family History All Active Problems (Updated 10/25/22 @ 17:18 by Hugh Garcia MD) Syncope (Acute) CHI (closed head injury) (Acute) Closed fibular fracture (Acute) Right shoulder strain (Acute) Dysuria (Acute) Annual physical exam (Acute) Allergic rhinitis (Acute) Medicare annual wellness visit, subsequent (Acute) Nausea (Acute) Diverticulitis (Acute) 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 chronic kidney disease (Chronic) Hospital discharge follow-up (Acute) Mixed dyslipidemia (Acute) Acute exacerbation of CHF (congestive heart failure) (Acute) Congestive heart failure (CHF) (Chronic) Hospital discharge follow-up (Acute) Malaise (Acute) Generalized weakness (Acute) Hyponatremia (Acute) Dehydration (Acute) Acute hyponatremia (Acute) Abdominal pain (Acute) Urinary tract infection (Acute) Low energy (Acute) Bilateral lower extremity edema (Acute) Back pain (Acute) Venous insufficiency (Acute) Hyponatremia (Chronic) Dysuria (Acute) Dysuria (Acute) Chronic kidney disease (CKD) stage G3b/A2, moderately decreased glomerular filtration rate (GFR) between 30-44 mL/min/1.73 square meter and albuminuria creatinine ratio between 30-299 mg/g (Chronic) Cystitis (Acute) Parathyroid related hypercalcemia (Chronic) Hyperparathyroidism (Chronic) Chronic pruritus (Acute) Atopic dermatitis (Acute) History of sinus surgery (Chronic) History of renal stent (Chronic) History of common carotid artery stent placement (Chronic) History of tonsillectomy (Chronic) History of appendectomy (Chronic) History of rotator cuff surgery (Chronic) Rheumatic fever (Chronic) Kidney failure (Chronic) Joint pain (Chronic) Hypercholesterolemia (Chronic) Daytime sleepiness (Chronic) Blood disorder (Chronic) Arthritis (Chronic) Closed left clavicular fracture (Acute) Guaiac positive stools (Acute) Hematoma (Acute) Anticoagulant long-term use (Chronic 10/30/13) Atrial fibrillation (Chronic ~1998) Hypertension (Chronic) History of stent insertion of renal artery (Chronic) Carotid stenosis (Chronic) Postgastric surgery syndrome (Chronic) Microscopic hematuria (Chronic) Weight loss (Chronic) Urinary incontinence (Chronic) Primary small intestine carcinoid tumor (Chronic) Raynauds syndrome (Chronic) Positive RYLAND (antinuclear antibody) (Chronic) Polymyalgia rheumatica (Chronic) Mitral valve regurgitation (Chronic) Meckel's diverticulum (Chronic) Hyperlipidemia (Chronic) Esophagitis (Chronic) Degenerative arthritis (Chronic) Colon polyps (Chronic 11/27/08) Back pain (Chronic) Medical History (Updated 10/25/22 @ 17:18 by Hugh Garcia MD) Anticoagulant long-term use (10/30/13) Arthritis Atrial fibrillation (~1998) Chronic with mitral regurgitation. Coumadin Back pain Back pain Biceps muscle tear Bilateral lower extremity edema Blood disorder Blood thinner Carotid stenosis Chronic pruritus Colon polyps (11/27/08) Hyperplastic Daytime sleepiness Degenerative arthritis Multi joint Dysphagia Slight, on a background of history of esophagitis and Saba's, EGD 2008 Dysuria Dysuria Esophagitis History of, EGD in 11/2008 Fibrocystic disease of breast Mammogram done 09/24/12 History of common carotid artery stent placement History of stent insertion of renal artery Hospital discharge follow-up Hospital discharge follow-up Hypercholesterolemia Hyperlipidemia Improved with diet treatment; multiple medicine intolerances Hypertension Hypovitaminosis D Joint pain Kidney failure one is gone; one at 27% Low energy Malaise Meckel's diverticulum History of, sequencing through Dr Casanova, last chromogranin level stable in May of 2012 Medicare annual wellness visit, subsequent Microscopic hematuria Midepigastric pain Burning; EGD 2008 Migraine with visual aura Mitral valve regurgitation On Coumadin anticoagulation; last echo in October of 2010 with normal ejection fraction and 2+ mitral regurgitation Polymyalgia rheumatica History of, off prednisone in August of 2010 Positive RYLAND (antinuclear antibody) 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 History of, with recent review by Dr Edilberto ACOSTA (renal artery stenosis) Raynauds syndrome Mild positive RYLAND Rheumatic fever Small bowel obstruction 01/2009 Splenic mass septated cyst; stable and benign per US 2017 Urinary incontinence Urinary tract infection UTI (urinary tract infection) Urosepsis - History of urinary incontinence and previous urinary tract infection with previous hospitalization for urosepsis, currently stable urine and asymptomatic Venous insufficiency Weight loss Mild weight loss 6-1/2 pounds Surgical History History of appendectomy History of arthroplasty 2004 - Right knee History of colonoscopy (12/16/13) Rectal Polyps, Uncomplicated internal hemorrhoids, Diverticulosis. Performed by Dr. Menjivar History of esophagogastroduodenoscopy (12/18/08) History of hysterectomy for non cancer reason in the distant past History of pelvic surgery 05/2008 - She had surgery for pelvic prolapse History of renal stent History of rotator cuff surgery Both shoulders History of sinus surgery History of tonsillectomy Family History Sister Malignant neoplasm of breast Father Malignant neoplasm of colon Rectal cancer Heart attack Social History Smoking Status: Former smoker Alcohol Intake Frequency: a few times a month Substance Use: does not use Exam Narrative Narrative: Narrative: General: Alert and oriented x3 answers questions cogently. Skin: Swelling and ecchymosis to the left ankle (lateral malleolus) only. She has no other abrasions or hematomas. Neck slightly tender on the right side near the shoulder that is so painful no increase in pain with dorsal vertebral compression head is atraumatic without raccoon eyes sanchez signs or hemotympanums. Ortho: Full range of motion of all joints without deformity with the exception of the right shoulder which is very painful elbow and wrist on the right arm are within normal limits. Ribs and pelvis are nontender to compression. Pulmonary: Clear to auscultation without rales rhonchi or wheezes equal bilaterally. CV: Regular rate and rhythm without murmurs clicks rubs or gallops. Course Vital Signs Vital signs: Vital Signs Temperature 97.3 F 10/25/22 15:56 Pulse Rate 87 10/25/22 15:56 Respiratory Rate 18 10/25/22 15:56 Blood Pressure 163/61 10/25/22 15:56 Pulse Oximetry (%) 94 10/25/22 15:56 Oxygen Delivery Method Room Air 10/25/22 15:56 Temperature 97.3 F 10/25/22 15:56 Pulse Rate 88 10/25/22 17:46 Respiratory Rate 20 10/25/22 17:46 Blood Pressure 201/84 10/25/22 17:46 Pulse Oximetry (%) 98 10/25/22 17:46 Oxygen Delivery Method Nasal Cannula 10/25/22 17:46 Oxygen Flow Rate (L/min) 2 10/25/22 17:46 [facility] MDM Narrative Medical decision making narrative: Narrative: EKG was obtained and showed atrial fibrillation with a controlled rate of 81, no other arrhythmias and no signs of acute ischemia. The QTc is 455. CT of the head and neck were obtained and showed no intracranial bleeds or vertebral fractures. Right shoulder was obtained which the patient complained of the most, it shows no fracture. Left ankle was x-rayed and it showed a distal fibular Nieto A metaphyseal fracture nondisplaced. Rt elbow open comminuted olecranon fracture with radial head displaced. Blood work was all within normal limits with a troponin of less than 0.02. The cause of the patient's syncope is unknown. She has no suggestion of an ischemic event, and no signs of a cerebrovascular accident. With closed head injury due to an unrestricted fall the additional diagnosis of concussion was made . Dr. Whitney was contacted regarding the olecranon fracture and agreed to see the patient and the hospitalist is being contacted for closed head injury and syncopal epsisode. Sepsis Sepsis Identified: No Lab Data 10/25/22 16:00 10/25/22 16:00 Labs: Lab Results 10/25/22 10/25/22 10/25/22 Range/Units 16:00 16:00 16:10 WBC 8.5 (4.5-11.0) K/mcL RBC 4.12 (3.59-5.38) M/mcL Hgb 12.1 (11.2-15.7) g/dL Hct 36.3 (34.1-44.9) % POC Hct (36-48) MCV 88.1 (80.0-100.0) fL MCH 29.4 (26.0-34.0) pg MCHC 33.3 (31.0-36.0) g/dL RDW 14.5 (11.5-14.5) % Plt Count 202 (140-440) K/mcL MPV 10.6 (8.8-12.5) fL Immature Gran % (Auto) 0.4 (0.0-0.5) % Neut % (Auto) 80.5 H (38.0-78.0) % Lymph % (Auto) 12.8 L (15.5-49.0) % [place] % (Auto) 5.4 (1.0-12.0) % Eos % (Auto) 0.2 (0.0-7.0) % Baso % (Auto) 0.7 (0.0-2.0) % Lymph # (Auto) 1.09 L (1.50-4.80) K/mcL [place] # (Auto) 0.46 (0.10-0.90) K/mcL Eos # (Auto) 0.02 (0.00-0.70) K/mcL Baso # (Auto) 0.06 (0.00-0.30) K/mcL Immature Gran # 0.03 (0.00-0.05) K/mcl Absolute Neutrophils 6.86 (1.80-8.00) K/mcL POC Sodium (133-145) Sodium 133 (133-145) mmol/L POC Potassium (3.3-5.1) Potassium 4.1 (3.3-5.1) mmol/L POC Chloride (96-108) Chloride 95 L (96-108) mmol/L Carbon Dioxide 24 (22-30) mmol/L POC Total CO2 (22-30) Anion Gap 14.0 (8.0-16.0) POC BUN (6-20) BUN 38 H (8-23) mg/dL Creatinine 1.6 H (0.6-1.1) mg/dL POC Creatinine (0.6-1.2) GFR Calculation 28 Glucose 124 H (70-105) mg/dL POC Glucose (70-105) Calcium 10.1 (8.6-10.4) mg/dL POC WB Ioniz Calcium (1.16-1.32) Total Bilirubin 0.5 (0.1-1.0) mg/dL AST 28 (<32) U/L ALT 11 (<40) U/L Alkaline Phosphatase 77 (39-117) U/L Total Protein 7.8 (5.9-8.4) gm/dL Albumin 4.3 (3.2-5.2) gm/dL Globulin 3.5 (2.2-3.7) gm/dL Albumin/Globulin Ratio 1.2 (1.0-2.3) POC Troponin I 0.02 (0.00-0.08) 10/25/22 Range/Units 16:12 WBC (4.5-11.0) K/mcL RBC (3.59-5.38) M/mcL Hgb (11.2-15.7) g/dL Hct (34.1-44.9) % POC Hct 39.0 (36-48) MCV (80.0-100.0) fL MCH (26.0-34.0) pg MCHC (31.0-36.0) g/dL RDW (11.5-14.5) % Plt Count (140-440) K/mcL MPV (8.8-12.5) fL Immature Gran % (Auto) (0.0-0.5) % Neut % (Auto) (38.0-78.0) % Lymph % (Auto) (15.5-49.0) % [place] % (Auto) (1.0-12.0) % Eos % (Auto) (0.0-7.0) % Baso % (Auto) (0.0-2.0) % Lymph # (Auto) (1.50-4.80) K/mcL [place] # (Auto) (0.10-0.90) K/mcL Eos # (Auto) (0.00-0.70) K/mcL Baso # (Auto) (0.00-0.30) K/mcL Immature Gran # (0.00-0.05) K/mcl Absolute Neutrophils (1.80-8.00) K/mcL POC Sodium 135 (133-145) Sodium (133-145) mmol/L POC Potassium 4.1 (3.3-5.1) Potassium (3.3-5.1) mmol/L POC Chloride 100 (96-108) Chloride (96-108) mmol/L Carbon Dioxide (22-30) mmol/L POC Total CO2 26.0 (22-30) Anion Gap (8.0-16.0) POC BUN 41 H (6-20) BUN (8-23) mg/dL Creatinine (0.6-1.1) mg/dL POC Creatinine 1.9 H (0.6-1.2) GFR Calculation Glucose (70-105) mg/dL POC Glucose 120 H (70-105) Calcium (8.6-10.4) mg/dL POC WB Ioniz Calcium 1.21 (1.16-1.32) Total Bilirubin (0.1-1.0) mg/dL AST (<32) U/L ALT (<40) U/L Alkaline Phosphatase (39-117) U/L Total Protein (5.9-8.4) gm/dL Albumin (3.2-5.2) gm/dL Globulin (2.2-3.7) gm/dL Albumin/Globulin Ratio (1.0-2.3) POC Troponin I (0.00-0.08) Discharge Plan Patient/Caregiver Discharge Instructions Pt seen by [facility] SPECIALIST/PA only: No Clinical Impression: Syncope, CHI (closed head injury), Closed fibular fracture, Right shoulder strain Patient Disposition: Xfer As Inpt ([facility]) Follow up with: Jose Jarquin MD [Primary Care Provider] - Prescriptions: No Action valsartan 160 mg tablet 160 mg PO DAILY Qty: 90 3RF hydralazine 25 mg tablet 25 mg PO TID Qty: 270 1RF rosuvastatin 5 mg tablet 5 mg PO QDAY Qty: 90 1RF levothyroxine 50 mcg capsule 50 mcg PO QDAY Qty: 90 0RF diltiazem HCl 360 mg capsule,extended release 24hr 360 mg PO QDAY Qty: 90 1RF lidocaine 5 % adhesive patch,medicated 1 patch topical QDAY Qty: 30 1RF Rx Instructions: leave on most painful area for up to 12 hrs multivitamin tablet 1 tab PO QDAY fexofenadine [Radha Allergy] 180 mg tablet 180 mg PO QDAY PRN (Reason: Allergy Symptoms) (DME) B/L knee high compression garments (15-20 mmHg) See Rx Instructions .Route .MEDSUPPLY Qty: 1 0RF Rx Instructions: As directed ipratropium bromide 42 mcg (0.06 %) spray,non-aerosol 2 spray intranasal TID-QID PRN (Reason: allergy symptoms) Qty: 15 0RF Rx Instructions: administer into each nostril glucosamine HCl 1,500 mg tablet 1,500 mg PO QDAY flaxseed oil 1,000 mg capsule 1,000 mg PO QDAY Eliquis 5 mg tablet 2.5 mg PO BID sodium PO Patient Comments: Not sure what the dosage is. Pt gets it OTC. losartan 100 mg tablet 100 mg PO QDAY torsemide 10 mg tablet 20 mg PO DAILY Qty: 30 0RF
--- NOTE | 2022-10-25 16:28 | XRay Report ---
INDICATION: syncope TECHNIQUE: AP portable semierect upright chest x-ray COMPARISON: Previous chest x-rays dated 08/02/2021, 07/29/2021, 06/18/2021 FINDINGS: Lungs:Lungs are negative. No focal pulmonary parenchymal infiltrate or mass Heart, vascular:There is marked cardiomegaly. Chronic. Pulmonary vascularity is unremarkable without evidence for congestive heart failure. Mediastinum, prabhjot:No mediastinal widening. No hilar mass Pleura:No pleural fluid. No pleural-based mass or calcification Skeletal:Nonacute, healed left-sided rib fractures. Degenerative joint disease in the shoulders, right worse than left. Both humeral heads are superiorly decentered consistent with rotator cuff degeneration IMPRESSION: 1. Marked cardiomegaly, unchanged. No pulmonary edema or pulmonary congestion 2. No acute parenchymal infiltrates 3. Nonacute healed left-sided rib fractures. Bilateral rotator cuff degeneration and superior decentering as above Interpreted and Authenticated by: Jarrod Martin 10/25/22
[2022-10-25 16:38] LABS: Basophils # (Auto) 0.06 K/mcL (0.00-0.30); Basophils % (Auto) 0.7 % (0.0-2.0); Eosinophils # (Auto) 0.02 K/mcL (0.00-0.70); Eosinophils % (Auto) 0.2 % (0.0-7.0); Hematocrit 36.3 % (34.1-44.9); Hemoglobin 12.1 g/dL (11.2-15.7); Lymphocytes # (Auto) 1.09 K/mcL (1.50-4.80); Lymphocytes % (Auto) 12.8 % (15.5-49.0); Mean Cell Volume 88.1 fL (80.0-100.0); Mean Corpuscular HGB Conc 33.3 g/dL (31.0-36.0); Mean Platelet Volume 10.6 fL (8.8-12.5); Monocytes # (Auto) 0.46 K/mcL (0.10-0.90); Monocytes % (Auto) 5.4 % (1.0-12.0); Neutrophils % (Auto) 80.5 % (38.0-78.0); Platelet Count 202 K/mcL (140-440); RBC 4.12 M/mcL (3.59-5.38); Red Cell Distribution Width 14.5 % (11.5-14.5); WBC 8.5 K/mcL (4.5-11.0)
--- NOTE | 2022-10-25 16:57 | Cat Scan Report ---
INDICATION: syncope COMPARISON: None. TECHNIQUE: Axial noncontrast-enhanced images through the brain. Sagittally and coronally reformatted images. FINDINGS: Cerebral hemispheres:Negative. No intra-axial abnormality. No intra-axial hematoma. No localized mass effect. There is cerebral atrophy with enlarged ventricles and mildly prominent superficial subarachnoid spaces. Appearance is within normal limits for age. There is white matter abnormality consistent with small vessel ischemic change in this 87-year-old patient. Brainstem and cerebellum:No intra-axial abnormality Extra-axial:No acute hemorrhage. No subdural or epidural hematoma. No subarachnoid hemorrhage. Basilar cisterns are normal Calvarial:No calvarial fracture. No lytic lesion Temporal bones are negative. No destructive lesions Soft tissue, orbits, sinuses:Orbits and visualized facial soft tissues and paranasal sinuses are negative IMPRESSION: No acute abnormality The exam was performed using radiation dose optimization techniques including, but not limited to, automated exposure control, adjustment of the mA and/or kV according to patient size and use of iterative reconstruction technique. Interpreted and Authenticated by: Jarrod Martin 10/25/22
--- NOTE | 2022-10-25 17:02 | Cat Scan Report ---
INDICATION: syncope COMPARISON: None. TECHNIQUE: Axial thin section images through the cervical spine. Sagittally and coronally reformatted images. The exam was performed using radiation dose optimization techniques including, but not limited to, automated exposure control, adjustment of the mA and/or kV according to patient size and use of iterative reconstruction technique. FINDINGS: Vertebral bodies, spinous processes:No cervical vertebral body fracture. Spinous processes are negative. Axial images through C1 demonstrate focal disc continuity in the midline posteriorly. Appearance is not typical of an acute fracture. There is no displacement. C1 ring is otherwise intact. Facets:Severe multilevel degenerative facet arthropathy. Disc spaces:Severe degenerative disc disease at C5-6 and C6-7. Moderate degenerative disc disease at C3-4 and C4-5 Temporal bones:Negative. No basilar skull fracture Cervical soft tissues:Negative. No prevertebral soft tissue swelling. No focal soft tissue mass or acute abnormality. Thyroid is heterogeneous with probable nodules bilaterally. Lung apices:No pneumothorax. No pulmonary contusion. IMPRESSION: 1. Severe degenerative disc disease and facet arthropathy 2. No acute cervical spine fracture Interpreted and Authenticated by: Jarrod Martin 10/25/22
[2022-10-25] MEDS ORDERED: ONDANSETRON 4 MG/2 ML VIAL IV ONE (17:09)
[2022-10-25] MEDS ORDERED: fentaNYL 100 MCG/2 ML VIAL IV ONE (17:09)
--- NOTE | 2022-10-25 17:11 | XRay Report ---
INDICATION: trauma previous RTC surgery TECHNIQUE: AP internal and external rotation, Y views COMPARISON: None. FINDINGS: No acute right shoulder fracture. No glenohumeral dislocation. There is superior decentering of the right humeral head consistent with rotator cuff degeneration. The humeral head abuts the undersurface of the acromion process. Scapula and clavicle are negative. IMPRESSION: 1. Rotator cuff degeneration 2. No acute abnormality Interpreted and Authenticated by: Jarrod Martin 10/25/22
--- NOTE | 2022-10-25 17:13 | XRay Report ---
INDICATION: trauma TECHNIQUE: AP, oblique, lateral left ankle COMPARISON: None FINDINGS: Skeletal: Distal tibia is negative. No fracture. There is a fracture of the distal left fibula. There is no displacement. Appearance is consistent with Nieto A fracture. Talus and calcaneus are negative. Joint spaces: Tibiotalar joint space is normal. Subtalar joint is normalNo significant tibiotalar joint effusion Periarticular soft tissue: Severe periarticular soft tissue swelling, predominantly lateral IMPRESSION: 1. Nondisplaced Nieto A left ankle fracture 2. Severe periarticular soft tissue swelling, predominantly lateral Interpreted and Authenticated by: Jarrod Martin 10/25/22
[2022-10-25 17:16] LABS: ALT/SGPT 11 U/L (<40); AST/SGOT 28 U/L (<32); Albumin 4.3 gm/dL (3.2-5.2); Albumin/Globulin Ratio 1.2 (1.0-2.3); Alkaline Phosphatase 77 U/L (39-117); Bilirubin,Total 0.5 mg/dL (0.1-1.0); Blood Urea Nitrogen 38 mg/dL (8-23); Calcium 10.1 mg/dL (8.6-10.4); Carbon Dioxide 24 mmol/L (22-30); Chloride 95 mmol/L (96-108); Globulin 3.5 gm/dL (2.2-3.7); Glomerular Filtration Rate 28; Glucose 124 mg/dL (70-105)
[2022-10-25] MEDS ORDERED: TETANUS,DIPHTHERIA TOXD PED/PF 0.5 ML VIAL IM ONE (17:59)
[2022-10-25] MEDS ORDERED: DIPH,PERTUSS(ACELL),TET VAC/PF 0.5 ML SYRINGE IM ONE (18:11)
--- NOTE | 2022-10-25 18:12 | XRay Report ---
INDICATION: trauma TECHNIQUE: AP, oblique, lateral right elbow COMPARISON: None. FINDINGS: Displaced right olecranon fracture. There is a gap of 2.5 cm. There is subluxation or displacement of the right radial head. Radial head is subluxed in a volar direction relative to the capitellum. Distal right humerus is negative. There is soft tissue swelling over the olecranon. There are gas bubbles consistent with penetrating injury. IMPRESSION: 1. Displaced olecranon fracture 2. Displaced or subluxed radial head relative to the capitellum Interpreted and Authenticated by: Jarrod Martin 10/25/22
[2022-10-25] MEDS ORDERED: ACETAMINOPHEN 1,000 MG/100 ML BAG IV ONE (18:13)
[2022-10-25] MEDS ORDERED: cefTRIAXone 1 GM VIAL IV ONE (18:25)
[2022-10-25 18:58] LABS: POC INR 1.4 (0.8-1.2); POC Pro Time 16.3 (11.9-14.5)
[2022-10-25] MEDS ORDERED: IPRATROPIUM 0.06% NASAL SPRAY BOTTLE 30ML NAS PRN (19:25)
[2022-10-25] MEDS ORDERED: ceFAZolin 2 GM in DEXTROSE 5% IN WATER 50 ML IV SCH (19:45)
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
[2022-10-25] MEDS ORDERED: ceFAZolin 1 GM VIAL ONE (20:16)
[2022-10-25] MEDS ORDERED: KETAMINE 50 MG/ML Syringe (ANEST) IV ONE (20:29)
[2022-10-25] MEDS ORDERED: ONDANSETRON 4 MG/2 ML VIAL ONE (20:29)
[2022-10-25] MEDS ORDERED: MAGNESIUM SULFATE 2 GM/50 ML BAG IV ONE (20:29)
[2022-10-25] MEDS ORDERED: LIDOCAINE HCL/PF 100 MG/5 ML SYRINGE IV ONE (20:29)
[2022-10-25] MEDS ORDERED: PROPOFOL 200 MG/20 ML VIAL IV ONE (20:29)
[2022-10-25] MEDS ORDERED: ePHEDrine 50 MG/5 ML SYRINGE (ANEST) IV ONE (20:29)
[2022-10-25] MEDS ORDERED: DEXAMETHASONE 10 MG/ML VIAL ONE (20:29)
[2022-10-25] MEDS ORDERED: diphenhydrAMINE 50 MG/ML VIAL IV PRN (21:14)
[2022-10-25] MEDS ORDERED: IPRATROPIUM/ALBUTEROL 3 ML AMPUL.NEB NEB PRN ×2 (21:14→22:15)
[2022-10-25] MEDS ORDERED: PROMETHAZINE 25 MG/ML VIAL IV PRN (21:14)
[2022-10-25] MEDS ORDERED: NALOXONE HCL 0.4 MG/ML VIAL IV PRN (21:14)
[2022-10-25] MEDS ORDERED: fentaNYL 100 MCG/2 ML VIAL IV PRN (21:14)
[2022-10-25] MEDS ORDERED: LACTATED RINGERS 250 ML IV PRN (21:14)
[2022-10-25] MEDS ORDERED: ONDANSETRON 4 MG/2 ML VIAL IV PRN ×2 (21:14→22:15)
[2022-10-25] MEDS ORDERED: METHOCARBAMOL 1,000 MG/10 ML VIAL IV PRN (21:14)
[2022-10-25] MEDS ORDERED: morphine 2 MG/ML VIAL IV PRN (21:14)
[2022-10-25] MEDS ORDERED: MEPERIDINE 25 MG/ML VIAL IV PRN (21:14)
[2022-10-25] MEDS ORDERED: LACTATED RINGERS 1,000 ML IV SCH (21:15)
--- NOTE | 2022-10-25 21:19 | Brief Operative Note ---
Brief Operative Note Date of procedure: 10/25/22 Pre-op diagnosis: 1)gr 2 open R olecranon fracture, 2)closed left lateral mall eolus ankle fx Post-op diagnosis: same Procedure: 1)Open treatment internal fixation of of left olecranon fracture, 2)closed treatment of right ankle fracture Grafts/Implants: Yes ([place] olecranon plate) Anesthesia: GLMA Findings: olecranon fracture Complications: none Surgeon: Petros Whitney Preform Plate Maker: Sincere Alegre Estimated blood loss (cc): 20 Specimens Removed/Pathology: none sent Condition: stable Disposition: PACU
[2022-10-25] MEDS ORDERED: morphine 4 MG/ML VIAL IV PRN ×2 (21:24→22:15)
[2022-10-25] MEDS ORDERED: ACETAMINOPHEN 325 MG TABLET PO PRN (22:15)
[2022-10-25] MEDS ORDERED: traZODone HCL 50 MG TABLET PO PRN (22:15)
[2022-10-25] MEDS ORDERED: oxyCODONE HCL 5 MG TABLET PO PRN (22:15)
[2022-10-25] MEDS: DOCUSATE SODIUM 100 MG CAPSULE PO SCH (22:44)
[2022-10-25] MEDS: 0.9 % SODIUM CHLORIDE 10 ML SYRINGE IV SCH (22:44)
[2022-10-25] MEDS: SENNOSIDES 1 TABLET PO SCH (22:44)
[2022-10-25] MEDS: hydrALAZINE 25 MG TABLET PO SCH (23:08)
[2022-10-25] MEDS ORDERED: morphine 2 MG/ML VIAL ONE (23:42)
[2022-10-25] MEDS: morphine 4 MG/ML VIAL IV PRN (23:55)
[2022-10-26] MEDS: HYDROcodone/APAP 5/325MG TABLET PO PRN ×3 (01:42→10:08)
[2022-10-26] MEDS ORDERED: morphine 2 MG/ML VIAL ONE (04:40)
[2022-10-26] MEDS: morphine 4 MG/ML VIAL IV PRN (04:42)
[2022-10-26] MEDS: ceFAZolin 1 GM VIAL IV SCH ×2 (04:58→10:09)
[2022-10-26] MEDS: 0.9 % SODIUM CHLORIDE 10 ML SYRINGE IV SCH ×3 (04:59→20:39)
[2022-10-26 06:18] LABS: Basophils # (Auto) 0.01 K/mcL (0.00-0.30); Basophils % (Auto) 0.2 % (0.0-2.0); Eosinophils # (Auto) 0 K/mcL (0.00-0.70); Eosinophils % (Auto) 0 % (0.0-7.0); Hematocrit 33.1 % (34.1-44.9); Hemoglobin 10.6 g/dL (11.2-15.7); Lymphocytes # (Auto) 0.37 K/mcL (1.50-4.80); Lymphocytes % (Auto) 8.2 % (15.5-49.0); Mean Cell Volume 91.2 fL (80.0-100.0); Mean Platelet Volume 10.8 fL (8.8-12.5); Monocytes # (Auto) 0.03 K/mcL (0.10-0.90); Monocytes % (Auto) 0.7 % (1.0-12.0); Neutrophils % (Auto) 90.5 % (38.0-78.0); Platelet Count 167 K/mcL (140-440); RBC 3.63 M/mcL (3.59-5.38); Red Cell Distribution Width 14.6 % (11.5-14.5); WBC 4.5 K/mcL (4.5-11.0)
[2022-10-26 06:36] LABS: ALT/SGPT 6 U/L (<40); AST/SGOT 25 U/L (<32); Albumin 3.8 gm/dL (3.2-5.2); Albumin/Globulin Ratio 1.2 (1.0-2.3); Alkaline Phosphatase 69 U/L (39-117); Bilirubin,Total 0.2 mg/dL (0.1-1.0); Blood Urea Nitrogen 34 mg/dL (8-23); Calcium 8.8 mg/dL (8.6-10.4); Carbon Dioxide 24 mmol/L (22-30); Chloride 96 mmol/L (96-108); Globulin 3.1 gm/dL (2.2-3.7); Glomerular Filtration Rate 33; Glucose 130 mg/dL (70-105)
[2022-10-26] MEDS ORDERED: TORSEMIDE 10 MG TABLET PO SCH (09:00)
[2022-10-26] MEDS ORDERED: GLUCOSAMINE HCL 1500 MG PO SCH (09:00)
[2022-10-26] MEDS: DILTIAZEM 180 MG CAP.XL.24H PO SCH (10:09)
[2022-10-26] MEDS: MULTIVIT,THER IRON,CA,FA & MIN 1 TABLET PO SCH (10:09)
[2022-10-26] MEDS: LOSARTAN 50 MG TABLET PO SCH (10:09)
[2022-10-26] MEDS: DOCUSATE SODIUM 100 MG CAPSULE PO SCH ×2 (10:10→20:38)
[2022-10-26] MEDS: hydrALAZINE 25 MG TABLET PO SCH ×3 (10:10→20:39)
[2022-10-26] MEDS: LIDOCAINE PATCH TOPICAL SCH (10:10)
[2022-10-26] MEDS: FEXOFENADINE 180 MG TABLET PO PRN (10:10)
[2022-10-26] MEDS: LEVOTHYROXINE 50 MCG TABLET PO SCH (10:10)
--- NOTE | 2022-10-26 11:25 | Ultrasound Report ---
INDICATION: syncope COMPARISON: Previous examinations dated 07/14/2022, 06/16/2021, 02/05/2020 TECHNIQUE: Carotid arteries were imaged in sagittal and transverse planes using 5 mHz linear probe: Doppler, color, and 2D. FINDINGS: Previous examinations described proximal right internal carotid artery stenosis, 5069% diameter. Patient is status post left endarterectomy. There is mild heterogeneous plaque in the proximal right internal carotid artery and distal right common carotid artery. This appears unchanged. Maximum Systolic Flow Velocity: - Right common carotid artery: 99 cm/sec - Right internal carotid artery: 172 cm/sec - Left common carotid artery: 104 cm/sec - Left internal carotid artery: 101 cm/sec Left internal carotid artery is negative. There is no stenosis. Right internal carotid artery appears unchanged. Probable 50% or 50-69% diameter stenosis. No ulceration. IMPRESSION: 1. Mild atherosclerotic plaque, predominantly right-sided 2. Probable 50-69% diameter stenosis in right internal carotid artery. No interval change 3. Negative left internal carotid artery. Previous endarterectomy Interpreted and Authenticated by: Jarrod Martin 10/26/22
--- NOTE | 2022-10-26 11:42 | Internal Med Progress Note ---
SUBJECTIVE Subjective Patient information: Note initiated : 10/26/22 at 11:36 am Service Date, if different from initiated Date: [] Patient: Lionel Knapp 87 y/o F admitted on 10/25/22 for syncope. Chief Complaint: [] Interval history: Ms. Knapp is a 87 year old F history of atrial fibrillation's, chronic kidney disease stage III, consider heart failure, hypothyroidism, essential hypertensions, mixed dyslipidemia, presenting with syncope and fall. Earlier today when patient was shopping at [employer], when she was walking in the parking lot trying to get back to her car, she lost consciousness and she felt. She did not remember the accident at all in the next thing she remember she was being brought to her car by bystander. Patient is complaining of right elbow and left ankle pain. She denies any chest pain or palpitation or shortness of breath prior to or after the accident. She denies having any shortness of breath. She denies any headaches or confusions. Extensive imaging performed in the ED showing a left ankle fracture and right displaced olecranon fractures, as well as displaced or subluxed radial head relative to the capitellum. Patient last took Eliquis for her atrial fibrillation's in the morning, and last meal was at noon today. Orthopedics surgeons Dr. Whitney was notified and plans to take her to the OR [facility]. 10/26: Status post open treatment internal fixation soft right flank around fracture and closed treatment of the left ankle fracture by orthopedic surgeons Dr. Whitney on 10/25. Patient tolerated the procedure well. Bilateral carotid Doppler US: 50-69% stenosis right internal carotid artery. Patient is currently is complaining of moderate pain of the right elbow and left ankle. Give the patient on the floor today. We will continue pain control. Continue to hold Eliquis until cleared by the surgeon. Rest of postoperative care as per surgery. Physical therapy and Occupational Therapy evaluation and treatment for placement planning. Constitutional Vitals: Vital Signs Temp Pulse Resp BP Pulse Ox O2 Del Method O2 Flow Rate 36.4 C 93 H 18 135/64 95 Room Air 1 10/26/22 08:00 10/26/22 08:00 10/26/22 08:00 10/26/22 08:00 10/26/22 08:00 10/26/22 08:00 10/26/22 05:59 Period Temp Pulse Resp BP Sys/Mcintosh Pulse Ox O2 Del Method O2 Flow Rate Last 24 Hr 36.2 C-36.7 C 71-96 11-27 115-205/54-113 86-100 Nasal Cannula- Room Air 1-2 Intake and Output 10/25/22 10/26/22 10/26/22 19:59 03:59 11:59 Intake Total 1111 950 120 Output Total 300 750 Balance 1111 650 -630 Weight 55.792 kg 61.263 kg Intake & Output: Intake & Output 10/25/22 10/26/22 10/26/22 19:59 03:59 11:59 Intake Total 1111 950 120 Output Total 300 750 Balance 1111 650 -630 Weight 55.792 kg 61.263 kg Intake: IV 1111 50 Sodium Chloride 0.9% 1,000 ml @ 1011 0 75 mls/hr IV .[id number] ONE Rx#: [id number] Ancef 2 gm In Dextrose 5% in 50 Water 50 ml @ 100 mls/hr IV PREOP [facility] Rx#:[id number] Oral 120 IV - Manual Only 900 Output: Urine Catheter Amount 750 Void Amount 300 Estimated Blood Loss 0 Other: Urine Appearance Clear Clear Uretheral ([place]) Clear Urine Color Pale Pale Uretheral ([place]) Yellow Pale Urine Odor Normal Normal Uretheral ([place]) Normal Head Head exam: Present atraumatic and normal inspection Eye Eye exam: Present normal appearance ENT ENT exam: Present mucous membranes moist, normal exam and normal external ear exam Neck Neck exam: Present normal inspection Respiratory Respiratory exam: Present normal respiratory exam Cardiovascular Cardiovascular exam: Present irregular rhythm GI/Abdominal GI/Abdominal exam: Present normal bowel sounds Extremities Exam Extremities exam: Present tenderness; Absent full ROM or normal inspection Additional comments: Casts on the right elbow and left ankle. Back Exam Back exam: Present normal inspection Neurological Exam Neurological exam: Present alert and oriented X3 Skin Skin exam: Present intact and warm OBJ DATA Labs 10/26/22 05:19 10/26/22 05:19 Labs: Abnormal Lab Results 10/26/22 10/26/22 10/25/22 05:19 05:19 18:55 Hgb 10.6 L Hct 33.1 L RDW 14.6 H Neut % (Auto) 90.5 H Lymph % (Auto) 8.2 L [place] % (Auto) 0.7 L Lymph # (Auto) 0.37 L [place] # (Auto) 0.03 L POC PT 16.3 H POC INR 1.4 H Sodium 131 L Chloride POC BUN BUN 34 H Creatinine 1.4 H POC Creatinine Glucose 130 H POC Glucose 10/25/22 10/25/22 10/25/22 16:12 16:00 16:00 Hgb Hct RDW Neut % (Auto) 80.5 H Lymph % (Auto) 12.8 L [place] % (Auto) Lymph # (Auto) 1.09 L [place] # (Auto) POC PT POC INR Sodium Chloride 95 L POC BUN 41 H BUN 38 H Creatinine 1.6 H POC Creatinine 1.9 H Glucose 124 H POC Glucose 120 H Meds: Medications Acetaminophen (Acetaminophen 325 Mg Tablet) 650 mg PO Q6HP PRN; Protocol PRN Reason: Per Pain Protocol/Fever > 101 Hydrocodone Bitart/Acetaminophen (Hydrocodone/Apap 5/325mg Tablet) 1 tab PO Q4- 6HP PRN; Protocol PRN Reason: Per Pain Protocol Last Admin: 10/26/22 10:08 Dose: 1 tab Albuterol/Ipratropium (Ipratropium/Albuterol 3 Ml Ampul.Neb) 3 ml NEB Q4HRT PRN PRN Reason: Wheezing Atorvastatin Calcium (Atorvastatin 10 Mg Tablet) 10 mg PO HS [facility] Cefazolin Sodium (Cefazolin 1 Gm Vial) 2 gm IV Q8H [facility]; Protocol Last Admin: 10/26/22 10:09 Dose: 2 gm Diltiazem HCl (Diltiazem 180 Mg Cap.Xl.24h) 360 mg PO DAILY [facility] Last Admin: 10/26/22 10:09 Dose: 360 mg Docusate Sodium (Docusate Sodium 100 Mg Capsule) 100 mg PO BID [facility] Last Admin: 10/26/22 10:10 Dose: 100 mg Fexofenadine HCl (Fexofenadine 180 Mg Tablet) 180 mg PO QDAY PRN PRN Reason: Allergy Symptoms Last Admin: 10/26/22 10:10 Dose: 180 mg Hydralazine HCl (Hydralazine 25 Mg Tablet) 25 mg PO TID [facility] Last Admin: 10/26/22 10:10 Dose: 25 mg Ipratropium [place] (Ipratropium 0.06% Nasal [place] Bottle 30ml) 2 spray VANESSA QIDP PRN PRN Reason: allergy symptoms Iron Carb/Multivit/[place]/Folic Acid (Multivit,Ther Iron,Ca,Fa & Min 1 Tablet) 1 tab PO DAILY [facility] Last Admin: 10/26/22 10:09 Dose: 1 tab Levothyroxine Sodium (Levothyroxine 50 Mcg Tablet) 50 mcg PO QAMAC [facility] Last Admin: 10/26/22 10:10 Dose: 50 mcg Lidocaine (Lidocaine Patch) 1 patch TOPICAL QDAY [facility] Last Admin: 10/26/22 10:10 Dose: 1 patch Losartan Potassium (Losartan 50 Mg Tablet) 100 mg PO DAILY [facility] Last Admin: 10/26/22 10:09 Dose: 100 mg Morphine Sulfate (Morphine 4 Mg/Ml Vial) 0 mg IV Q1HP PRN; Protocol PRN Reason: Per Pain Protocol Last Admin: 10/26/22 04:42 Dose: 2 mg Ondansetron HCl (Ondansetron 4 Mg/2 Ml Vial) 4 mg IV Q6HP PRN PRN Reason: Nausea And Vomiting Oxycodone HCl (Oxycodone Hcl 5 Mg Tablet) 5 mg PO Q4HP PRN; Protocol PRN Reason: Per Pain Protocol Senna (Sennosides 1 Tablet) 2 tab PO HS [facility] Last Admin: 10/25/22 22:44 Dose: Not Given Sodium Chloride (0.9 % Sodium Chloride 10 Ml Syringe) 10 ml IV Q8 [facility] Last Admin: 10/26/22 04:59 Dose: Not Given Trazodone HCl (Trazodone Hcl 50 Mg Tablet) 25 mg PO HSP PRN PRN Reason: Insomnia A/P Assessment and plan (1) Closed left ankle fracture: Status: Acute (2) Displaced fracture of olecranon process of right ulna with intra-articular extension: Status: Acute (3) Syncope: Status: Acute (4) Mixed dyslipidemia: Status: Acute (5) Congestive heart failure (CHF): Status: Chronic (6) Chronic kidney disease (CKD) stage G3b/A2, moderately decreased glomerular filtration rate (GFR) between 30-44 mL/min/1.73 square meter and albuminuria creatinine ratio between 30-299 mg/g: Status: Chronic (7) Atrial fibrillation: Status: Chronic Comment: Chronic with mitral regurgitation. Coumadin Qualifiers: Atrial fibrillation type: unspecified Qualified Code(s): I48.91 - Unspecified atrial fibrillation (8) Hyperlipidemia: Status: Chronic Comment: Improved with diet treatment; multiple medicine intolerances Qualifiers: Hyperlipidemia type: pure hypercholesterolemia Qualified Code(s): E78.00 - Pure hypercholesterolemia, unspecified (9) Hypertension: Status: Chronic Qualifiers: Hypertension type: essential hypertension Qualified Code(s): I10 - Essential (primary) hypertension (10) Hypothyroidism (acquired): Status: Acute (11) Postoperative anemia: Status: Acute Narrative A/P Narrative: Assessment and Plans: 1. Left ankle fracture and right displaced olecranon fracture: Inpatient med surg telemetry Status post open treatment internal fixation soft right flank around fracture and closed treatment of the left ankle fracture by orthopedic surgeons Dr. Whitney on 10/25 Hold Eliquis until cleared by surgery Tylenol Oxycodone Morphine Physical therapy evaluation and treatment Occupational therapy evaluation and treatment 2. Permanent atrial fibrillation: Hold Eliquis until cleared by surgery Diltiazem 3. Chronic kidney disease stage III: Avoid nephrotoxic agents Saline lock CMP in the morning to trend kidney functions 4. Congestive heart failure, stable: Losartan Resume Torsemide Saline lock 5. Hypothyroidism: Continue thyroid replacement therapy 6. Essential hypertension: Losartan Hydralazine Diltiazem Resume Torsemide 7. Mixed dyslipidemia: Continue statin therapy 8. Syncope: 2D echocardiogram Bilateral carotid Doppler US: 50-69% stenosis right internal carotid artery Physical therapy evaluation and treatment Occupational therapy evaluation and treatment 9. Postoperative anemia: Hold Eliquis until cleared by surgery Daily cbc w/ auto diff to trend H/H GI ppx: not currently indicated DVT ppx: SCDs; Holding Eliquis for surgery Code status: DNR Prognosis: Stable Disposition: inpatient med surg tele; PT OT Time Spent With Patient Time: Total time spent is greater than 50% in coordination of care (as documented) at patient's floor/unit and/or counseling patient: Subsequent: Total time with patient: 35 - 49 minutes
--- NOTE | 2022-10-26 16:11 | Orthopedic Progress Note ---
SUBJECTIVE Subjective Patient information: Note initiated : 10/26/22 at 4:09 pm Service Date, if different from initiated Date: [] Patient: Lionel Knapp 87 y/o F admitted on 10/25/22 for syncope. Chief Complaint: Moderate pain R elbow and decreased ROM. Constitutional Vitals: Vital Signs Temp Pulse Resp BP Pulse Ox O2 Del Method O2 Flow Rate 98.1 F 90 18 118/58 93 Nasal Cannula 0.5 10/26/22 12:00 10/26/22 12:00 10/26/22 12:00 10/26/22 12:00 10/26/22 12:00 10/26/22 12:00 10/26/22 12:00 Period Temp Pulse Resp BP Sys/Mcintosh Pulse Ox O2 Del Method O2 Flow Rate Last 24 Hr 97.2 F-98.1 F 71-96 11-27 115-205/54-113 86-100 Nasal Cannula- Room Air 0.5-2 Intake and Output 10/26/22 10/26/22 10/26/22 03:59 11:59 19:59 Intake Total 950 1109 480 Output Total 300 750 Balance 650 359 480 Weight 135 lb 1 oz 135 lb 1 oz Patient Weight 10/27/22 03:59 Weight 135 lb 1 oz Intake & Output: Intake & Output 10/26/22 10/26/22 10/26/22 03:59 11:59 19:59 Intake Total 950 1109 480 Output Total 300 750 Balance 650 359 480 Weight 135 lb 1 oz 135 lb 1 oz Intake: IV 50 989 Sodium Chloride 0.9% 1,000 ml @ 0 989 75 mls/hr IV .[id number] ONE Rx#: [id number] Ancef 2 gm In Dextrose 5% in 50 Water 50 ml @ 100 mls/hr IV PREOP [facility] Rx#:[id number] Oral 120 480 IV - Manual Only 900 Output: Urine Catheter Amount 750 Void Amount 300 Estimated Blood Loss 0 Other: Meal Lunch Percent of Meal Consumed 100% Feeding Ability Independent Urine Appearance Clear Clear Uretheral ([place]) Clear Urine Color Pale Pale Uretheral ([place]) Yellow Pale Urine Odor Normal Normal Uretheral ([place]) Normal Additional findings Additional findings: Bandages c/d/i NVI-distal OBJ DATA Labs 10/26/22 05:19 03/29/23 05:19 Labs: Abnormal Lab Results 10/26/22 10/26/22 10/25/22 05:19 05:19 18:55 Hgb 10.6 L Hct 33.1 L RDW 14.6 H Neut % (Auto) 90.5 H Lymph % (Auto) 8.2 L [place] % (Auto) 0.7 L Lymph # (Auto) 0.37 L [place] # (Auto) 0.03 L POC PT 16.3 H POC INR 1.4 H Sodium 131 L Chloride POC BUN BUN 34 H Creatinine 1.4 H POC Creatinine Glucose 130 H POC Glucose 10/25/22 10/25/22 10/25/22 16:12 16:00 16:00 Hgb Hct RDW Neut % (Auto) 80.5 H Lymph % (Auto) 12.8 L [place] % (Auto) Lymph # (Auto) 1.09 L [place] # (Auto) POC PT POC INR Sodium Chloride 95 L POC BUN 41 H BUN 38 H Creatinine 1.6 H POC Creatinine 1.9 H Glucose 124 H POC Glucose 120 H Meds: Medications Acetaminophen (Acetaminophen 325 Mg Tablet) 650 mg PO Q6HP PRN; Protocol PRN Reason: Per Pain Protocol/Fever > 101 Hydrocodone Bitart/Acetaminophen (Hydrocodone/Apap 5/325mg Tablet) 1 tab PO Q4- 6HP PRN; Protocol PRN Reason: Per Pain Protocol Last Admin: 10/26/22 10:08 Dose: 1 tab Albuterol/Ipratropium (Ipratropium/Albuterol 3 Ml Ampul.Neb) 3 ml NEB Q4HRT PRN PRN Reason: Wheezing Atorvastatin Calcium (Atorvastatin 10 Mg Tablet) 10 mg PO HS [facility] Cefazolin Sodium (Cefazolin 1 Gm Vial) 2 gm IV Q8H [facility]; Protocol Last Admin: 10/26/22 10:09 Dose: 2 gm Diltiazem HCl (Diltiazem 180 Mg Cap.Xl.24h) 360 mg PO DAILY [facility] Last Admin: 10/26/22 10:09 Dose: 360 mg Docusate Sodium (Docusate Sodium 100 Mg Capsule) 100 mg PO BID [facility] Last Admin: 10/26/22 10:10 Dose: 100 mg Fexofenadine HCl (Fexofenadine 180 Mg Tablet) 180 mg PO QDAY PRN PRN Reason: Allergy Symptoms Last Admin: 10/26/22 10:10 Dose: 180 mg Hydralazine HCl (Hydralazine 25 Mg Tablet) 25 mg PO TID [facility] Last Admin: 10/26/22 10:10 Dose: 25 mg Ipratropium [place] (Ipratropium 0.06% Nasal [place] Bottle 30ml) 2 spray VANESSA QIDP PRN PRN Reason: allergy symptoms Iron Carb/Multivit/[place]/Folic Acid (Multivit,Ther Iron,Ca,Fa & Min 1 Tablet) 1 tab PO DAILY [facility] Last Admin: 10/26/22 10:09 Dose: 1 tab Levothyroxine Sodium (Levothyroxine 50 Mcg Tablet) 50 mcg PO QAMAC [facility] Last Admin: 10/26/22 10:10 Dose: 50 mcg Lidocaine (Lidocaine Patch) 1 patch TOPICAL QDAY [facility] Last Admin: 10/26/22 10:10 Dose: 1 patch Losartan Potassium (Losartan 50 Mg Tablet) 100 mg PO DAILY [facility] Last Admin: 10/26/22 10:09 Dose: 100 mg Morphine Sulfate (Morphine 4 Mg/Ml Vial) 0 mg IV Q1HP PRN; Protocol PRN Reason: Per Pain Protocol Last Admin: 10/26/22 04:42 Dose: 2 mg Ondansetron HCl (Ondansetron 4 Mg/2 Ml Vial) 4 mg IV Q6HP PRN PRN Reason: Nausea And Vomiting Oxycodone HCl (Oxycodone Hcl 5 Mg Tablet) 5 mg PO Q4HP PRN; Protocol PRN Reason: Per Pain Protocol Senna (Sennosides 1 Tablet) 2 tab PO HS [facility] Last Admin: 10/25/22 22:44 Dose: Not Given Sodium Chloride (0.9 % Sodium Chloride 10 Ml Syringe) 10 ml IV Q8 [facility] Last Admin: 10/26/22 13:14 Dose: Not Given Trazodone HCl (Trazodone Hcl 50 Mg Tablet) 25 mg PO HSP PRN PRN Reason: Insomnia A/P Assessment and plan (1) Elbow fracture, right: Status: Acute Comment: keep immobilized in sling. follow-up 2 weeks at [facility] Non-weight bearing. Time Spent With Patient Time: Total time spent is greater than 50% in coordination of care (as documented) at patient's floor/unit and/or counseling patient: Subsequent: Total time with patient: Less than 25 minutes
[2022-10-26] MEDS ORDERED: ceFAZolin 1 GM VIAL IV ONE (20:00)
[2022-10-26] MEDS: SENNOSIDES 1 TABLET PO SCH (20:38)
[2022-10-26] MEDS: ATORVASTATIN 10 MG TABLET PO SCH (20:38)
[2022-10-27 06:17] LABS: Basophils # (Auto) 0.02 K/mcL (0.00-0.30); Basophils % (Auto) 0.2 % (0.0-2.0); Eosinophils # (Auto) 0 K/mcL (0.00-0.70); Eosinophils % (Auto) 0 % (0.0-7.0); Hematocrit 26.4 % (34.1-44.9); Hemoglobin 8.5 g/dL (11.2-15.7); Lymphocytes # (Auto) 0.79 K/mcL (1.50-4.80); Lymphocytes % (Auto) 7.4 % (15.5-49.0); Mean Cell Volume 91.3 fL (80.0-100.0); Mean Corpuscular HGB Conc 32.2 g/dL (31.0-36.0); Mean Platelet Volume 11.1 fL (8.8-12.5); Monocytes # (Auto) 0.75 K/mcL (0.10-0.90); Neutrophils % (Auto) 84.8 % (38.0-78.0); Platelet Count 152 K/mcL (140-440); RBC 2.89 M/mcL (3.59-5.38); Red Cell Distribution Width 14.9 % (11.5-14.5); WBC 10.7 K/mcL (4.5-11.0)
[2022-10-27 06:38] LABS: ALT/SGPT < 5 U/L (<40); AST/SGOT 22 U/L (<32); Albumin 3.2 gm/dL (3.2-5.2); Albumin/Globulin Ratio 1.3 (1.0-2.3); Alkaline Phosphatase 52 U/L (39-117); Bilirubin,Total 0.2 mg/dL (0.1-1.0); Blood Urea Nitrogen 37 mg/dL (8-23); Calcium 8.9 mg/dL (8.6-10.4); Carbon Dioxide 25 mmol/L (22-30); Chloride 103 mmol/L (96-108); Globulin 2.5 gm/dL (2.2-3.7); Glomerular Filtration Rate 36; Glucose 121 mg/dL (70-105)
--- NOTE | 2022-10-27 07:00 | Consultation ---
DATE OF CONSULTATION: 10/25/2022 REASON FOR CONSULTATION: Open right olecranon fracture and closed left ankle fracture. REQUESTING PHYSICIAN: Dr. Garcia. CONSULTING PHYSICIAN: Petros Whitney MD HISTORY OF PRESENT ILLNESS: This is an 87-year-old female who was shopping at [employer] and walking back to her car when she lost consciousness and fell. She was complaining of right elbow and left ankle pain, was taken to the emergency department, was found to have a laceration over her elbow and x-ray showed a displaced right olecranon fracture. She also had a left lateral malleolus fracture. She was also complaining to me of tenderness and swelling over her upper chest. PAST MEDICAL HISTORY: Extensive including hypothyroidism, anemia, congestive heart failure, hyponatremia, chronic kidney disease, atrial fibrillation, carotid stenosis, hypertension, mitral valve regurgitation, polymyalgia rheumatica, renal artery stenosis, Raynaud's. PAST SURGICAL HISTORY: Appendectomy, right total knee arthroplasty, hysterectomy, pelvic prolapse surgery, renal stent, bilateral rotator cuff surgery, sinus surgery, and tonsillectomy. ALLERGIES: CIPRO, OFLOXACIN, CISAPRIDE, EZETIMIBE, LORATADINE. MEDICATIONS: Eliquis, torsemide, valsartan, fexofenadine, hydralazine, ipratropium bromide, rosuvastatin, levothyroxine, diltiazem. SOCIAL HISTORY: She is , lives alone. She quit smoking in 1962, drinks alcohol a few times a month. FAMILY HISTORY: Positive for cancer in her father with heart attack. REVIEW OF SYSTEMS: A 10-system review is positive for the loss of consciousness per the HPI. PHYSICAL EXAMINATION: Vital Signs: On admission, temperature 36.3 degrees Celsius, pulse 98, respirations 21, blood pressure 188/83, pulse ox 98% on 2 liters. General Appearance: She appears her stated age, in no acute distress. She is oriented to person and place. Mood and affect are appropriate. Extremities: Right upper extremity reveals a bloody dressing. She is neurovascularly intact distally with limited range of motion of the elbow. The left ankle reveals a large swelling over the lateral malleolus with ecchymosis. She also has significant swelling over the medial clavicle on the right with tenderness to palpation as well. RADIOGRAPHS: X-rays reviewed, shows a displaced olecranon fracture on the right elbow. CT scan of the cervical spine revealed a comminuted nondisplaced medial head of the clavicle fracture on the right and there is also a [place] A fracture of the lateral malleolus on the left with minimal displacement. IMPRESSION: 1. Right grade II open olecranon fracture that is displaced. 2. Closed left lateral malleolus fracture that is minimally displaced. 3. Closed, comminuted, minimally displaced medial clavicle fracture on the left in an 87-year-old female with multiple medical comorbidities. PLAN: I recommend proceeding urgently with open treatment and internal fixation of the right, grade II open olecranon fracture. I discussed with her I do not think the clavicle or the ankle require surgical intervention. I discussed risks of surgery, which include, but not limited to, bleeding; infection; injury to nerves, blood vessels, other surrounding structures, anesthetic risks; nonunion or malunion of the fracture; failure of hardware fixation being more risk given her osteoporosis, infection, risks being increased with the open nature of the fracture. I also discussed possible need for further surgery, particularly hardware removal as often times these plates are symptomatic. She understands these risks and wished to proceed. BJB:mary Job ID: [id number] Doc ID: [id number] Petros Whitney MD
--- NOTE | 2022-10-27 07:50 | Orthopedic Progress Note ---
SUBJECTIVE Subjective Patient information: Note initiated : 10/27/22 at 7:48 am Service Date, if different from initiated Date: [] Patient: Lionel Knapp 87 y/o F admitted on 10/25/22 for syncope. Chief Complaint: Mild pain Constitutional Vitals: Vital Signs Temp Pulse Resp BP Pulse Ox O2 Del Method O2 Flow Rate 98.2 F 63 18 115/45 98 Nasal Cannula 1 10/27/22 07:04 10/27/22 07:04 10/27/22 07:04 10/27/22 07:04 10/27/22 07:04 10/27/22 07:04 10/27/22 07:04 Period Temp Pulse Resp BP Sys/Mcintosh Pulse Ox O2 Del Method O2 Flow Rate Last 24 Hr 97.2 F-99.0 F 62-93 12-18 102-137/43-64 93-98 Nasal Cannula- Room Air 0.5-1 Intake and Output 10/26/22 10/27/22 10/27/22 19:59 03:59 11:59 Intake Total 480 300 Output Total 450 500 Balance 30 -200 Weight 136 lb 1.6 oz Intake & Output: Intake & Output 10/26/22 10/27/22 10/27/22 19:59 03:59 11:59 Intake Total 480 300 Output Total 450 500 Balance 30 -200 Weight 136 lb 1.6 oz Intake: Oral 480 300 Output: Urine Catheter Amount 450 500 Other: Meal Lunch Percent of Meal Consumed 100% Feeding Ability Independent Urine Appearance Clear Urine Color Yellow Dark Yellow Urine Odor Strong Additional findings Additional findings: Bandages c/d/i nvi-distal OBJ DATA Labs 10/27/22 05:11 10/27/22 05:11 Labs: Abnormal Lab Results 10/27/22 10/27/22 10/26/22 05:11 05:11 05:19 RBC 2.89 L Hgb 8.5 L Hct 26.4 L RDW 14.9 H Immature Gran % (Auto) 0.6 H Neut % (Auto) 84.8 H Lymph % (Auto) 7.4 L [place] % (Auto) Lymph # (Auto) 0.79 L [place] # (Auto) Immature Gran # 0.06 H Absolute Neutrophils 9.05 H POC PT POC INR Sodium 131 L Chloride Anion Gap 7.0 L POC BUN BUN 37 H 34 H Creatinine 1.3 H 1.4 H POC Creatinine Glucose 121 H 130 H POC Glucose Total Protein 5.7 L 10/26/22 10/25/22 10/25/22 05:19 18:55 16:12 RBC Hgb 10.6 L Hct 33.1 L RDW 14.6 H Immature Gran % (Auto) Neut % (Auto) 90.5 H Lymph % (Auto) 8.2 L [place] % (Auto) 0.7 L Lymph # (Auto) 0.37 L [place] # (Auto) 0.03 L Immature Gran # Absolute Neutrophils POC PT 16.3 H POC INR 1.4 H Sodium Chloride Anion Gap POC BUN 41 H BUN Creatinine POC Creatinine 1.9 H Glucose POC Glucose 120 H Total Protein 10/25/22 10/25/22 16:00 16:00 RBC Hgb Hct RDW Immature Gran % (Auto) Neut % (Auto) 80.5 H Lymph % (Auto) 12.8 L [place] % (Auto) Lymph # (Auto) 1.09 L [place] # (Auto) Immature Gran # Absolute Neutrophils POC PT POC INR Sodium Chloride 95 L Anion Gap POC BUN BUN 38 H Creatinine 1.6 H POC Creatinine Glucose 124 H POC Glucose Total Protein Meds: Medications Acetaminophen (Acetaminophen 325 Mg Tablet) 650 mg PO Q6HP PRN; Protocol PRN Reason: Per Pain Protocol/Fever > 101 Hydrocodone Bitart/Acetaminophen (Hydrocodone/Apap 5/325mg Tablet) 1 tab PO Q4-6HP PRN; Protocol PRN Reason: Per Pain Protocol Last Admin: 10/26/22 10:08 Dose: 1 tab Albuterol/Ipratropium (Ipratropium/Albuterol 3 Ml Ampul.Neb) 3 ml NEB Q4HRT PRN PRN Reason: Wheezing Atorvastatin Calcium (Atorvastatin 10 Mg Tablet) 10 mg PO HS [facility] Last Admin: 10/26/22 20:38 Dose: 10 mg Diltiazem HCl (Diltiazem 180 Mg Cap.Xl.24h) 360 mg PO DAILY [facility] Last Admin: 10/26/22 10:09 Dose: 360 mg Docusate Sodium (Docusate Sodium 100 Mg Capsule) 100 mg PO BID [facility] Last Admin: 10/26/22 20:38 Dose: 100 mg Fexofenadine HCl (Fexofenadine 180 Mg Tablet) 180 mg PO QDAY PRN PRN Reason: Allergy Symptoms Last Admin: 10/26/22 10:10 Dose: 180 mg Hydralazine HCl (Hydralazine 25 Mg Tablet) 25 mg PO TID [facility] Last Admin: 10/26/22 20:39 Dose: 25 mg Ipratropium [place] (Ipratropium 0.06% Nasal [place] Bottle 30ml) 2 spray VANESSA QIDP PRN PRN Reason: allergy symptoms Iron Carb/Multivit/[place]/Folic Acid (Multivit,Ther Iron,Ca,Fa & Min 1 Tablet) 1 tab PO DAILY [facility] Last Admin: 10/26/22 10:09 Dose: 1 tab Levothyroxine Sodium (Levothyroxine 50 Mcg Tablet) 50 mcg PO QAMAC [facility] Last Admin: 10/26/22 10:10 Dose: 50 mcg Lidocaine (Lidocaine Patch) 1 patch TOPICAL QDAY [facility] Last Admin: 10/26/22 10:10 Dose: 1 patch Losartan Potassium (Losartan 50 Mg Tablet) 100 mg PO DAILY [facility] Last Admin: 10/26/22 10:09 Dose: 100 mg Morphine Sulfate (Morphine 4 Mg/Ml Vial) 0 mg IV Q1HP PRN; Protocol PRN Reason: Per Pain Protocol Last Admin: 10/26/22 04:42 Dose: 2 mg Ondansetron HCl (Ondansetron 4 Mg/2 Ml Vial) 4 mg IV Q6HP PRN PRN Reason: Nausea And Vomiting Oxycodone HCl (Oxycodone Hcl 5 Mg Tablet) 5 mg PO Q4HP PRN; Protocol PRN Reason: Per Pain Protocol Senna (Sennosides 1 Tablet) 2 tab PO HS [facility] Last Admin: 10/26/22 20:38 Dose: 2 tab Sodium Chloride (0.9 % Sodium Chloride 10 Ml Syringe) 10 ml IV Q8 [facility] Last Admin: 10/26/22 20:39 Dose: 10 ml Trazodone HCl (Trazodone Hcl 50 Mg Tablet) 25 mg PO HSP PRN PRN Reason: Insomnia A/P Assessment and plan (1) Elbow fracture, right: Status: Acute Comment: keep immobilized in sling. follow-up 2 weeks at [facility] Non-weight bearing. Plan Signing out ortho service. f/u 2 weeks for sutre removal Time Spent With Patient Time: Total time spent is greater than 50% in coordination of care (as documented) at patient's floor/unit and/or counseling patient:
--- NOTE | 2022-10-27 07:59 | Operative Note ---
DATE OF OPERATION: 10/25/2022 DATE OF PROCEDURE: 10/25/2022 PREOPERATIVE DIAGNOSES: 1. Right grade II open olecranon fracture. 2. Left closed Nieto A lateral malleolus fracture. 3. Closed, comminuted medial clavicular head fracture. POSTOPERATIVE DIAGNOSES: 1. Right grade II open olecranon fracture. 2. Left closed [place] A lateral malleolus fracture. 3 Closed, comminuted medial clavicular head fracture. PROCEDURE PERFORMED: 1. Open treatment and internal fixation of the grade II open right olecranon fracture using a [place] olecranon plate. 2. Closed treatment of the left Nieto A lateral ankle fracture with manipulation and placement into a boot. SURGEON: Petros Whitney M.D. ESCALATOR SERVICE MECHANIC: Sincere Alegre PA-C. This providers expertise and technical skill were required throughout the case. The PA assisted with preoperative coordination, intraoperative retraction, wound closure, and dressing and splint application, as well as postoperative documentation and care coordination. ANESTHESIA: General. DRAINS: None. SPECIMENS: None. COMPLICATIONS: None. ESTIMATED BLOOD LOSS: Less than 30 mL. POSTOPERATIVE CONDITION: Stable. INDICATIONS FOR SURGERY: This is an 87-year-old female who sustained a loss of consciousness at a store and ended up falling. She complained of pain in her elbow and ankle. She was taken to the Emergency Department and was found to have an open olecranon fracture as well as ankle fracture. It was pointed out to me by her that she had swelling and paying close to the neck over the medial clavicle. Review of her CT scan did reveal a comminuted nondisplaced medial clavicular head fracture. X-rays of the elbow revealed a widely displaced olecranon fracture with open wound of about 3 cm. The ankle revealed a minimally displaced Nieto A fracture. Post-fixation of the olecranon showed stable fixation with near anatomic alignment. Elbow had good range of motion without blockade or crepitation. PROCEDURE IN DETAIL: The patient had been seen preoperatively and informed consent had been obtained after discussion of risks and benefits of surgery. Risks including, but not limited to, bleeding; infection, increased risk given the open nature of the fracture, injury to nerves, blood vessels, other surrounding structures, anesthetic risks; nonunion or malunion of the fracture; failure of hardware fixation, this being significant given her advanced age and poor bone quality, stiffness, possibility of needing further surgery such as hardware removal. She understood these risks and wished to proceed. Correct operative site was marked and the patient was taken to the operating room. General anesthesia was induced. She was carefully positioned on a beanbag in the left lateral decubitus position and the beanbag was suctioned. An axillary roll had been placed. The right upper extremity was then carefully prepped and draped in normal sterile fashion. A timeout was performed verifying patient name, operative site, and plan. Esmarch was used to exsanguinate the extremity, and tourniquet was inflated to 250 mmHg. Her open wound was in line with the forearm, so we just extended this over the subcutaneous border of the ulna shaft and then extended it slightly proximally to expose the proximal fragment. I then suctioned out fracture hematoma. There was no obvious gross contamination. I copiously irrigated the fracture with saline. I then also used a curette as well to clean out the fracture site. A small drill hole was made distally in the ulna and then a tenaculum clamp was used to reduce the fracture, placing one tip in the hole and one around the proximal fragment. I was able to reduce this what appeared to be anatomically. I then chose a [place] olecranon plate. This was carefully positioned along the ulna and then initially fixated with a K-wire. I then went distally and drilled and placed a nonlocking screw in the slotted hole before completely decompressing it. I then pushed the plate as tightly against the proximal fragment in a distal movements as I could and then I tightened the slotted screw until it was tight. I then drilled the home run screw in the proximal most hole, drilling this down the shaft of the ulna and a 60 mm screw was placed. I then went back to the shaft distally and drilled and placed a bicortical screw locking. I angled off the side of the home run screw. I then placed a third distal shaft screw, this one angled slightly distally to try and avoid the joint and also off center to avoid the home run screw. I then drilled in place 3 more unicortical locking screws in the proximal fragment. Fluoroscopy was used to check AP and lateral views, which showed the fracture anatomically aligned and the hardware not penetrating the joint. I took the elbow through range of motion, both flexion and extension, and supination and pronation, which did not reveal any crepitation. I then irrigated copiously with IrriSept, after a minute irrigated copiously with saline, and then 0 Vicryl was used to try and close deep soft tissue over the plate starting distally going as far proximally as I could with having soft tissue to cover. The very proximal portion over the olecranon was unable to have soft tissue to close other than the superficial skin closure, which was done with Monocryl and then a Prolene running stitch was used for skin. Local anesthetic was injected. Sterile dressing was applied. Tourniquet was released. A sling was placed. We then also did a manipulation of the ankle fracture fragments and placement into a fracture boot. She was then awakened, extubated, and transferred to recovery in stable condition. BJB:mary carmen Job ID: [id number] Doc ID: [id number] Petros Whitney MD
[2022-10-27] MEDS: LEVOTHYROXINE 50 MCG TABLET PO SCH (09:00)
--- NOTE | 2022-10-27 09:57 | EKG ---
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 Measurements Intervals [place] Rate: 81 P: CT: QRS: 26 QRSD: 92 T: 58 QT: 391 QTc: 455 Interpretive Statements Atrial fibrillation Nonspecific T abnormalities Electronically Signed On 10-27-2022 9:57:04 PDT by Lefty Owens D.O. /store/M0/[id number]
[2022-10-27] MEDS: LIDOCAINE PATCH TOPICAL SCH (10:06)
[2022-10-27] MEDS: DILTIAZEM 180 MG CAP.XL.24H PO SCH (10:11)
[2022-10-27] MEDS: LOSARTAN 50 MG TABLET PO SCH (10:11)
[2022-10-27] MEDS: hydrALAZINE 25 MG TABLET PO SCH (10:11)
--- NOTE | 2022-10-27 12:15 | Internal Med Progress Note ---
SUBJECTIVE Subjective Patient information: Note initiated : 10/27/22 at 12:11 pm Service Date, if different from initiated Date: [] Patient: Lionel Knapp 87 y/o F admitted on 10/25/22 for syncope. Chief Complaint: [] Interval history: Ms. Knapp is a 87 year old F history of atrial fibrillation's, chronic kidney disease stage III, consider heart failure, hypothyroidism, essential hypertensions, mixed dyslipidemia, presenting with syncope and fall. Earlier today when patient was shopping at [employer], when she was walking in the parking lot trying to get back to her car, she lost consciousness and she felt. She did not remember the accident at all in the next thing she remember she was being brought to her car by bystander. Patient is complaining of right elbow and left ankle pain. She denies any chest pain or palpitation or shortness of breath prior to or after the accident. She denies having any shortness of breath. She denies any headaches or confusions. Extensive imaging performed in the ED showing a left ankle fracture and right displaced olecranon fractures, as well as displaced or subluxed radial head relative to the capitellum. Patient last took Eliquis for her atrial fibrillation's in the morning, and last meal was at noon today. Orthopedics surgeons Dr. Whitney was notified and plans to take her to the OR [facility]. 10/26: Status post open treatment internal fixation soft right flank around fracture and closed treatment of the left ankle fracture by orthopedic surgeons Dr. Whitney on 10/25. Patient tolerated the procedure well. Bilateral carotid Doppler US: 50-69% stenosis right internal carotid artery. Patient is currently is complaining of moderate pain of the right elbow and left ankle. Give the patient on the floor today. We will continue pain control. Continue to hold Eliquis until cleared by the surgeon. Rest of postoperative care as per surgery. Physical therapy and Occupational Therapy evaluation and treatment for placement planning. 10/27: Soft blood pressure overnight and this morning. Patient is comfortable and denies having any right elbow or left ankle pain as long as she is not moving those joints. She has no bowel movement overnight. Holding oral antihypertensive for soft blood pressure. Continue to provide narcotics as needed for pain control. Continue stool softeners/laxative to promote bowel movement. Pending SNF placement, likely on October 28. Constitutional Vitals: Vital Signs Temp Pulse Resp BP Pulse Ox O2 Del Method O2 Flow Rate 36.8 C 63 18 115/45 98 Nasal Cannula 1 10/27/22 07:04 10/27/22 07:04 10/27/22 07:04 10/27/22 07:04 10/27/22 07:04 10/27/22 07:04 10/27/22 07:04 Period Temp Pulse Resp BP Sys/[place] Pulse Ox O2 Del Method O2 Flow Rate Last 24 Hr 36.2 C-37.2 C 62-81 12-18 102-137/43-53 93-98 Nasal Cannula- Nasal Cannula 0.5-1 Intake and Output 10/27/22 10/27/22 10/27/22 03:59 11:59 19:59 Intake Total 660 Output Total 500 Balance 160 Intake & Output: Intake & Output 10/27/22 10/27/22 10/27/22 03:59 11:59 19:59 Intake Total 660 Output Total 500 Balance 160 Intake: Oral 660 Output: Urine Catheter Amount 500 Other: Meal Breakfast Percent of Meal Consumed 100% Feeding Ability Independent Urine Appearance Clear Urine Color Dark Yellow Urine Odor Strong Head Head exam: Present atraumatic and normal inspection Eye Eye exam: Present normal appearance ENT ENT exam: Present mucous membranes moist, normal exam and normal external ear exam Neck Neck exam: Present normal inspection Respiratory Respiratory exam: Present normal respiratory exam Cardiovascular Cardiovascular exam: Present irregular rhythm GI/Abdominal GI/Abdominal exam: Present normal bowel sounds Extremities Exam Extremities exam: Absent full ROM or normal inspection Additional comments: Cast of right elbow and left ankle Back Exam Back exam: Present normal inspection Neurological Exam Neurological exam: Present alert and oriented X3 Skin Skin exam: Present intact and warm OBJ DATA Labs 10/27/22 05:11 10/27/22 05:11 Labs: Abnormal Lab Results 10/27/22 10/27/22 10/26/22 05:11 05:11 05:19 RBC 2.89 L Hgb 8.5 L Hct 26.4 L RDW 14.9 H Immature Gran % (Auto) 0.6 H Neut % (Auto) 84.8 H Lymph % (Auto) 7.4 L Perry % (Auto) Lymph # (Auto) 0.79 L Perry # (Auto) Immature Gran # 0.06 H Absolute Neutrophils 9.05 H POC PT POC INR Sodium 131 L Chloride Anion Gap 7.0 L POC BUN BUN 37 H 34 H Creatinine 1.3 H 1.4 H POC Creatinine Glucose 121 H 130 H POC Glucose Total Protein 5.7 L 10/26/22 10/25/22 10/25/22 05:19 18:55 16:12 RBC Hgb 10.6 L Hct 33.1 L RDW 14.6 H Immature Gran % (Auto) Neut % (Auto) 90.5 H Lymph % (Auto) 8.2 L Perry % (Auto) 0.7 L Lymph # (Auto) 0.37 L Perry # (Auto) 0.03 L Immature Gran # Absolute Neutrophils POC PT 16.3 H POC INR 1.4 H Sodium Chloride Anion Gap POC BUN 41 H BUN Creatinine POC Creatinine 1.9 H Glucose POC Glucose 120 H Total Protein 10/25/22 10/25/22 16:00 16:00 RBC Hgb Hct RDW Immature Gran % (Auto) Neut % (Auto) 80.5 H Lymph % (Auto) 12.8 L Perry % (Auto) Lymph # (Auto) 1.09 L Perry # (Auto) Immature Gran # Absolute Neutrophils POC PT POC INR Sodium Chloride 95 L Anion Gap POC BUN BUN 38 H Creatinine 1.6 H POC Creatinine Glucose 124 H POC Glucose Total Protein Meds: Medications Acetaminophen (Acetaminophen 325 Mg Tablet) 650 mg PO Q6HP PRN; Protocol PRN Reason: Per Pain Protocol/Fever > 101 Hydrocodone Bitart/Acetaminophen (Hydrocodone/Apap 5/325mg Tablet) 1 tab PO Q4- 6HP PRN; Protocol PRN Reason: Per Pain Protocol Last Admin: 10/26/22 10:08 Dose: 1 tab Albuterol/Ipratropium (Ipratropium/Albuterol 3 Ml Ampul.Neb) 3 ml NEB Q4HRT PRN PRN Reason: Wheezing Atorvastatin Calcium (Atorvastatin 10 Mg Tablet) 10 mg PO HS WILBER Last Admin: 10/26/22 20:38 Dose: 10 mg Docusate Sodium (Docusate Sodium 100 Mg Capsule) 100 mg PO BID WILBER Last Admin: 10/26/22 20:38 Dose: 100 mg Fexofenadine HCl (Fexofenadine 180 Mg Tablet) 180 mg PO QDAY PRN PRN Reason: Allergy Symptoms Last Admin: 10/26/22 10:10 Dose: 180 mg Ipratropium [place] (Ipratropium 0.06% Nasal [place] Bottle 30ml) 2 spray VANESSA QIDP PRN PRN Reason: allergy symptoms Iron Carb/Multivit/[place]/Folic Acid (Multivit,Ther Iron,Ca,Fa & Min 1 Tablet) 1 tab PO DAILY ON LICENSE OF [facility] Last Admin: 10/26/22 10:09 Dose: 1 tab Levothyroxine Sodium (Levothyroxine 50 Mcg Tablet) 50 mcg PO QAMAC ON LICENSE OF [facility] Last Admin: 10/27/22 09:00 Dose: 50 mcg Lidocaine (Lidocaine Patch) 1 patch TOPICAL QDAY ON LICENSE OF [facility] Last Admin: 10/27/22 10:06 Dose: Not Given Morphine Sulfate (Morphine 4 Mg/Ml Vial) 0 mg IV Q1HP PRN; Protocol PRN Reason: Per Pain Protocol Last Admin: 10/26/22 04:42 Dose: 2 mg Ondansetron HCl (Ondansetron 4 Mg/2 Ml Vial) 4 mg IV Q6HP PRN PRN Reason: Nausea And Vomiting Oxycodone HCl (Oxycodone Hcl 5 Mg Tablet) 5 mg PO Q4HP PRN; Protocol PRN Reason: Per Pain Protocol Senna (Sennosides 1 Tablet) 2 tab PO HS ON LICENSE OF [facility] Last Admin: 10/26/22 20:38 Dose: 2 tab Sodium Chloride (0.9 % Sodium Chloride 10 Ml Syringe) 10 ml IV Q8 ON LICENSE OF [facility] Last Admin: 10/26/22 20:39 Dose: 10 ml Trazodone HCl (Trazodone Hcl 50 Mg Tablet) 25 mg PO HSP PRN PRN Reason: Insomnia A/P Assessment and plan (1) Closed left ankle fracture: Status: Acute (2) Displaced fracture of olecranon process of right ulna with intra-articular extension: Status: Acute (3) Syncope: Status: Acute (4) Mixed dyslipidemia: Status: Acute (5) Congestive heart failure (CHF): Status: Chronic (6) Chronic kidney disease (CKD) stage G3b/A2, moderately decreased glomerular f iltration rate (GFR) between 30-44 mL/min/1.73 square meter and albuminuria creatinine ratio between 30-299 mg/g: Status: Chronic (7) Atrial fibrillation: Status: Chronic Comment: Chronic with mitral regurgitation. Coumadin Qualifiers: Atrial fibrillation type: unspecified Qualified Code(s): I48.91 - Unspecified atrial fibrillation (8) Hyperlipidemia: Status: Chronic Comment: Improved with diet treatment; multiple medicine intolerances Qualifiers: Hyperlipidemia type: pure hypercholesterolemia Qualified Code(s): E78.00 - Pure hypercholesterolemia, unspecified (9) Hypertension: Status: Chronic Qualifiers: Hypertension type: essential hypertension Qualified Code(s): I10 - Es sential (primary) hypertension (10) Hypothyroidism (acquired): Status: Acute (11) Postoperative anemia: Status: Acute Narrative A/P Narrative: Assessment and Plans: 1. Left ankle fracture and right displaced olecranon fracture: Inpatient med surg telemetry Status post open treatment internal fixation soft right flank around fracture and closed treatment of the left ankle fracture by orthopedic surgeons Dr. Whitney on 10/25 Casts/non weight bearing/2 week post-surgical follow up Hold Eliquis until cleared by surgery Tylenol Oxycodone Morphine Physical therapy evaluation and treatment Occupational therapy evaluation and treatment SNF, Likely Monday10/28/22 2. Permanent atrial fibrillation: Hold Eliquis until cleared by surgery Diltiazem 3. Chronic kidney disease stage III: Avoid nephrotoxic agents Saline lock CMP in the morning to trend kidney functions 4. Congestive heart failure, stable: Losartan Resume Torsemide Saline lock 5. Hypothyroidism: Continue thyroid replacement therapy 6. Essential hypertension: Holding Losartan due to soft blood pressure Holding Hydralazine due to soft blood pressure Holding Diltiazem due to soft blood pressure Resume Torsemide 7. Mixed dyslipidemia: Continue statin therapy 8. Syncope: 2D echocardiogram Bilateral carotid Doppler US: 50-69% stenosis right internal carotid artery Physical therapy evaluation and treatment Occupational therapy evaluation and treatment 9. Postoperative anemia: Hold Eliquis until cleared by surgery Daily cbc w/ auto diff to trend H/H GI ppx: not currently indicated DVT ppx: SCDs; Holding Eliquis for surgery Code status: DNR Prognosis: Stable Disposition: inpatient med surg tele; SNF, Likely Monday10/28/22 Time Spent With Patient Time: Total time spent is greater than 50% in coordination of care (as documented) at patient's floor/unit and/or counseling patient: Subsequent: Total time with patient: 35 - 49 minutes
[2022-10-27] MEDS: MULTIVIT,THER IRON,CA,FA & MIN 1 TABLET PO SCH (16:13)
[2022-10-27] MEDS: DOCUSATE SODIUM 100 MG CAPSULE PO SCH ×2 (16:13→20:39)
[2022-10-27] MEDS: FEXOFENADINE 180 MG TABLET PO PRN (16:13)
[2022-10-27] MEDS: 0.9 % SODIUM CHLORIDE 10 ML SYRINGE IV SCH ×3 (16:14→20:39)
[2022-10-27] MEDS: SENNOSIDES 1 TABLET PO SCH (20:38)
[2022-10-27] MEDS: HYDROcodone/APAP 5/325MG TABLET PO PRN (20:38)
[2022-10-27] MEDS: ATORVASTATIN 10 MG TABLET PO SCH (20:39)
[2022-10-28] MEDS: HYDROcodone/APAP 5/325MG TABLET PO PRN ×2 (02:43→07:36)
[2022-10-28] MEDS: 0.9 % SODIUM CHLORIDE 10 ML SYRINGE IV SCH (05:49)
[2022-10-28 06:17] LABS: Basophils # (Auto) 0.04 K/mcL (0.00-0.30); Basophils % (Auto) 0.5 % (0.0-2.0); Eosinophils # (Auto) 0.12 K/mcL (0.00-0.70); Eosinophils % (Auto) 1.4 % (0.0-7.0); Hematocrit 27.9 % (34.1-44.9); Hemoglobin 8.8 g/dL (11.2-15.7); Lymphocytes # (Auto) 1.56 K/mcL (1.50-4.80); Lymphocytes % (Auto) 17.6 % (15.5-49.0); Mean Cell Volume 92.7 fL (80.0-100.0); Mean Corpuscular HGB Conc 31.5 g/dL (31.0-36.0); Mean Platelet Volume 10.7 fL (8.8-12.5); Monocytes # (Auto) 0.79 K/mcL (0.10-0.90); Monocytes % (Auto) 8.9 % (1.0-12.0); Platelet Count 154 K/mcL (140-440); RBC 3.01 M/mcL (3.59-5.38); Red Cell Distribution Width 14.9 % (11.5-14.5); WBC 8.9 K/mcL (4.5-11.0)
[2022-10-28 06:42] LABS: ALT/SGPT < 5 U/L (<40); AST/SGOT 19 U/L (<32); Albumin 3.2 gm/dL (3.2-5.2); Albumin/Globulin Ratio 1.3 (1.0-2.3); Alkaline Phosphatase 55 U/L (39-117); Bilirubin,Total 0.3 mg/dL (0.1-1.0); Blood Urea Nitrogen 29 mg/dL (8-23); Calcium 8.6 mg/dL (8.6-10.4); Carbon Dioxide 24 mmol/L (22-30); Chloride 102 mmol/L (96-108); Globulin 2.5 gm/dL (2.2-3.7); Glomerular Filtration Rate 50; Glucose 84 mg/dL (70-105)
[2022-10-28] MEDS: LEVOTHYROXINE 50 MCG TABLET PO SCH (07:36)
[2022-10-28] MEDS: MULTIVIT,THER IRON,CA,FA & MIN 1 TABLET PO SCH (09:08)
[2022-10-28] MEDS: DOCUSATE SODIUM 100 MG CAPSULE PO SCH (09:08)
[2022-10-28] MEDS: LIDOCAINE PATCH TOPICAL SCH (09:10)
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
== END 2022-10-28 12:00 | DRG 511 ==
LOC: ED 15:54 → SUR 19:57 → MEDSUR 22:10
PROVIDERS: ADMIT Internal Medicine; ATTEND Internal Medicine